=== PATIENT | female | born 1985 | race Hispanic/Latino ===

== ENCOUNTER 2022-05-29 06:15 | Inpatient (IN) | payer MEDICAID, SELFPAY ==
[2022-05-29] VITALS (7 sets, daily range): BP systolic 127–158; BP diastolic 81–101; PULSE 77–100; RESP 14–20; TEMP 36.4–37; O2SAT 97–100; BMI 29.6
--- NOTE | ~2022-05-29 | MR_ITS ---
EXAMINATION: MR MRCP wo/w con/w 3D wo ind DATE: 05/29/2022 15:20 INDICATION: Pancreatitis. TECHNIQUE: Magnetic resonance imaging (MRI) of the abdomen was performed without and with 12 mL Multi Balwinder intravenous contrast. Sequences included coronal T2-weighted FS FSE, coronal T2-weighted FSE, a xial T1-weighted LAVA, coronal FS FIESTA, axial dual-echo T1-weighted SPGR, coronal lava-FLEX, sagitt al T2-weighted FSE, axial T2-weighted FSE, and axial DWI. Thick-slab T2-weighted FSE images were obta ined for magnetic resonance cholangiopancreatography (MRCP). Maximum intensity projection 3-D reconst ructions of the volumetric data were created by the technologist. Postcontrast sequences included cor onal LAVA-flex and time course of axial T1-weighted LAVA. COMPARISON: CT abdomen and pelvis 05/29/22 FINDINGS: ABDOMEN MRI: There is diffuse hepatic steatosis. There are gallstones in the gallbladder, which is no rmal in size. The spleen is normal. There is fluid and fat stranding adjacent to the tail of the panc reas, consistent with acute interstitial pancreatitis. The adrenal glands and kidneys are normal. The re are no dilated loops of bowel. Breast implants are noted. There is fat stranding in the body wall, likely changes of abdominoplasty. ABDOMEN MRCP: The common duct is normal and measures 4 mm. No choledocholithiasis. IMPRESSION: 1. No choledocholithiasis. 2. Acute interstitial pancreatitis. 3. Cholelithiasis. 4. Diffuse hepatic steatosis. Reviewed, dictated and finalized at location A.
--- NOTE | ~2022-05-29 | US_ITS ---
EXAMINATION: US abdomen limited DATE: 05/29/2022 09:46 INDICATION: Pancreatitis. TECHNIQUE: Multiple grayscale and Doppler ultrasound images of the abdomen were obtained. COMPARISON: CT abdomen and pelvis 05/29/22 FINDINGS: The pancreas is obscured by bowel gas. There is diffuse hepatic steatosis. There is normal flow in main portal vein. The gallbladder is contracted. No visible gallstones. No gallbladder wall t hickening. There is no sonographic Godoy sign. The common duct is normal and measures 4 mm. IMPRESSION: 1. Diffuse hepatic steatosis. Reviewed, dictated and finalized at location A.
--- NOTE | ~2022-05-29 | CT_ITS ---
EXAMINATION: CT abdomen pelvis w con DATE: 05/29/2022 08:24 INDICATION: Abdominal pain. TECHNIQUE: Computed tomography (CT) of the abdomen and pelvis was performed with 100 mL Omnipaque 350 intravenous contrast. Automated exposure control and iterative reconstruction technique were employe d. The dose-length product was 861.04 mGy-cm. COMPARISON: None. FINDINGS: The visualized portions of the lung bases demonstrates mild atelectasis. No pleural effusio n. The heart size is normal. No pericardial effusion. Breast implants are noted. The liver and spleen are normal. The gallbladder is contracted. There are wall calcifications of the gallbladder. The cho creas enhances throughout. There is fluid and fat stranding adjacent to the tail of the pancreas, con sistent with acute interstitial pancreatitis. The adrenal glands and kidneys are normal. There are no dilated loops of bowel. There are changes of appendectomy. There are no pathologically enlarged lymp h nodes. There is stranding of the subcutaneous fat in the body wall, likely changes of abdominoplast y. There is mild thoracolumbar spondylosis. There is mild chronic anterior wedging of T11-L1 vertebra l bodies. IMPRESSION: 1. Acute interstitial pancreatitis. Reviewed, dictated and finalized at location A.
[2022-05-29 06:49] LABS: Appearance Urine Clear (Clear); Bilirubin Urine 3+ (Negative); Blood Urine Trace-intact (Negative); Color Urine Dark Yellow (Yellow); Glucose Urine UA Negative (Negative); Ketones Urine Negative (Negative); Leukocyte Esterase Ur Negative LEU/UL (Negative); Nitrate Urine Negative (Negative); Protein Urine Negative (Negative); Urobilinogen Urine 0.2 mg/dL (<2.0); pH Urine 5.5 (5.0-9.0)
[2022-05-29 06:59] LABS: Basophils Percent Auto 0.4 % (0.2-1.2); Eosinophils Absolute Auto 0.1 K/mm3 (0-0.3); Eosinophils Percent Auto 1.5 % (0-4.4); Hematocrit 41.2 % (37.0-47.0); Hemoglobin 13.4 g/dL (12.0-15.0); Immature Granulocyte Absolute 0.03 K/mm3 (0.00-0.031); Immature Granulocyte Percent A 0.3 % (0-0.5); Lymphocytes Absolute Auto 1.31 K/mm3 (0.9-3.2); Lymphocytes Percent Auto 13.8 % (18.3-44.2); Mean Corpuscular HGB Conc 32.5 g/dl (32-36); Mean Corpuscular Hemoglobin 30.3 pg (26-34); Mean Corpuscular Volume 93.2 fl (80-100); Mean Platelet Volume 9.1 fl (7.4-10.4); Monocytes Absolute Auto 0.3 K/mm3 (0.1-0.6); Monocytes Percent Auto 3.6 % (2.6-8.5); Neutrophils Absolute Auto 7.7 K/mm3 (1.3-6.7); Neutrophils Percent Auto 80.4 % (45.5-73.1); Platelet Count Result 344 k/mm3 (150-375); Red Blood Count 4.42 M/mm3 (4.2-5.4); Red Cell Distribution Width 12.3 % (11.5-14.5); White Blood Count 9.5 K/mm3 (4.5-10.0)
[2022-05-29 07:18] LABS: Lactic Acid Reflex 0.8 mmol/L (0.7-2.0)
[2022-05-29 07:24] LABS: Add Urine Microscopic? YES; Bacteria Urine Trace /hpf; Mucus Urine Rare /lpf; RBC Urine 0-2 /hpf (0-2); Squamous Epithelial Cell Urine Many /hpf (Few); WBC Urine 0-3 /hpf
[2022-05-29 07:29] LABS: Albumin Level 4.6 g/dL (3.5-5.1); Alkaline Phosphatase 148 U/L (38-126); Anion Gap 11 mmol/L (8-16); Bilirubin,Total 4.3 mg/dL (0.2-1.3); Blood Urea Nitrogen 6 mg/dL (7-17); Calcium 8.4 mg/dL (8.4-10.2); Carbon Dioxide 27 mmol/L (22-30); Chloride 104 mmol/L (98-107); Estimated Glomerular Filt Rate > 60; Glucose 113 mg/dL (65-110); Potassium 3.6 mmol/L (3.4-5.0); Sodium 142 mmol/L (137-145)
[2022-05-29 07:31] LABS: Alanine Aminotransferase 1039 U/L (6-35); Aspartate Amino Transferase 752 U/L (14-36)
--- NOTE | 2022-05-29 08:14 | ED.GENADULT ---
HPI - General Adult General Chief complaint: Abdominal Pain Stated complaint: abd pain Time Seen by Provider: 05/29/22 07:02 History of Present Illness HPI narrative: This is a 37-year-old female presenting to ED with abdominal pain. Patient states pain started 2 days ago after she ate some work. His regional in the middle of her stomach but is now diffuse throughout her abdomen. She describes it as a soreness/ cramping pain that is nonradiating, 6/10 intensity and comes and goes. She has never experienced pain like this before. She has taken Tylenol with some pain relief. No exacerbating factors. She did have 1 episode of vomiting and some chills. last bowel movement was 2 days ago.She denies diarrhea, urinary symptoms, chest pain, difficulty breathing. Patient has had her appendix out. Related Data Allergies Allergy/AdvReac Type Severity Reaction Status Date / Time No Known Allergies Allergy Verified 05/29/22 08:28 Review of Systems Review of Systems: CONSTITUTIONAL: Denies night sweats. EYES: No eye pain ENT: Denies rhinorrhea CARDIOVASCULAR: Denies palpitations RESPIRATORY: Denies hemoptysis GASTROINTESTINAL: Denies hematemesis GENITOURINARY: Denies hematuria. SKIN: Denies rash MUSCULOSKELETAL: Denies myalgia. NEUROLOGIC: Denies weakness. PSYCHIATRIC: Denies delusions Exam Narrative: APPEARANCE: No apparent distress. patient appears uncomfortable Head atraumatic. EYES: PERRLA/EOMI, NOSE: Normal no drainage NECK: Supple, Trachea midline RESPIRATORY: CTAB, No increased work of breathing. CARDIOVASCULAR: S1S2 appreciated ABDOMINAL: abdomen is soft, nondistended with some voluntary guarding. No rebound tenderness. No CVA tenderness. MUSCULOSKELETAl: No obvious deformities NEURO: Alert. Moving 4/4 extremities SKIN:: Warm, dry. Normal color PSYCHIATRIC: Normal affect Course Vital Signs Vital signs: Vital Signs Temperature 98.6 F 05/29/22 06:26 Pulse Rate 100 05/29/22 06:26 Respiratory Rate 20 05/29/22 06:26 Blood Pressure 154/101 H 05/29/22 06:26 Pulse Oximetry 97 05/29/22 06:26 Oxygen Delivery Room Air 05/29/22 06:26 Temperature 98.6 F 05/29/22 06:26 Pulse Rate 77 05/29/22 08:55 Respiratory Rate 16 05/29/22 08:55 Blood Pressure 135/81 11/04/22 08:55 Pulse Oximetry 100 05/29/22 08:55 Oxygen Delivery Room Air 05/29/22 06:26 Medical Decision Making MDM Narrative Medical decision making narrative: This a 37-year-old female presenting ED with abdominal pain. Differential includes gastritis, pancreatitis, gallbladder disease, constipation among others. Abdominal labs been ordered. CT of pelvis has been ordered. Patient's lab work was seen for an elevated lipase at over 12,000. additionally AST and ALT and bilirubin are elevated as well. CT showed interstitial pancreatitis. Right upper quadrant ultrasound has been ordered to evaluate for gallstones. RUQ quadrant ultrasound revealed a contracted blood all gallbladder with no evidence of cholecystitis. There is diffuse hepatic steatosis. Common bile duct was not dilated. I spoke with Dr. Godoy the GI physician on-call who recommended admission. she will be admitted hospital for further evaluation. Vital Signs Vital Signs: Vital Signs Temperature 98.6 F 05/29/22 06:26 Pulse Rate 100 05/29/22 06:26 Respiratory Rate 20 05/29/22 06:26 Blood Pressure 154/101 H 05/29/22 06:26 Pulse Oximetry 97 05/29/22 06:26 Oxygen Delivery Room Air 05/29/22 06:26 Temperature 98.6 F 05/29/22 06:26 Pulse Rate 77 05/29/22 08:55 Respiratory Rate 16 05/29/22 08:55 Blood Pressure 135/81 05/29/22 08:55 Pulse Oximetry 100 05/29/22 08:55 Oxygen Delivery Room Air 05/29/22 06:26 Lab Data Result diagrams: 05/29/22 06:45 05/29/22 06:45 Labs: Lab Results 05/29/22 05/29/22 05/29/22 Range/Units 06:38 06:45 06:45 WBC 9.5 (4
[2022-05-29 08:24] LABS: Lipase 12645 U/L (23-300)
[2022-05-29] MEDS: HYDROcodone/acetaminophen (*CRX) 5-325 MG TABLET 2 TAB PO (08:30)
--- NOTE | 2022-05-29 12:01 | WPDGICN ---
Assessment and Plan Assessment and plan (1) Acute pancreatitis: Code(s): K85.90 - Acute pancreatitis without necrosis or infection, unspecified Status: Acute Assessment and Plan: she has never had pancreatitis in the past. Her lipase now is greater than 12,000. given the fact that this episode began with acute pain, and she had a similar briefer episode 2 weeks ago, I still suspect biliary tract disease despite the normal ultrasound and CT scan. MRCP has been ordered the plan is to begin IV fluids, rest her gut, do the MRCP and relieve her pain. (2) Abnormal transaminases: Code(s): R74.8 - Abnormal levels of other serum enzymes Status: Acute Assessment and Plan: AST is 752, ALT greater than 1000 a bilirubin 4.3. If not due to biliary tract disease, then this is some sort of hepatic dysfunction, but would be strange did have both pancreatitis and hepatitis at the same time. (3) Fatty liver: Code(s): K76.0 - Fatty (change of) liver, not elsewhere classified Status: Acute Assessment and Plan: This noted on imaging, though would not explain the marked degree of enzyme elevation GI Consult Note Consult date/time: 05/29/22 12:01 HPI: Pat Andres is a 37 year old female who has been in good health and on no medications. She became ill on Wednesday. During the day she has only developed upper abdominal pain a cramping pain. It lasted a good part of the day and slowly subsided. When she got up there is that she felt better with just a bit of a dull discomfort. She was able to eat. She had dinner around 7:00 p.m. on and by midnight she was having severe pain. She did vomit once at home. She then came to the emergency room this morning with the above symptoms. She has been found to have marked elevation of lipase and also elevated LFTs. CT scan of the abdomen did did show pancreatitis but did not show any abnormalities of the biliary tract. She denies drinking alcohol. She has not recently started any new medications. She is not aware of any family history of liver biliary tract or pancreatic disease. Her weight has been stable. She recalls that about 2 weeks ago she had a brief episode similar to this that lasted only an hour or 2. 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 Smoking status: Never smoker Alcohol intake: never Substance use: never Has the Lack of Transportation Kept You From Medical Appointments or From Getting Medications?: No Within the Past 12 Months, Were You Worried Whether Your Food Would Run Out Before You Got Money to Buy More?: Never True What is Your Housing Situation Today?: I Have Housing Are You Worried That in the Next 2 Months, You May Not Have Your Own Housing to Live In?: No Do You Have Trouble Paying Your Heating Or Electricity Bill?: No Do You Have Trouble Paying For Medicines?: No Are You Currently Unemployed and Looking for Work?: No Highest Level of Education Completed: High School Diploma/GED Do You Have Trouble With Childcare or the Care of a Family Member?: No Spiritual care concerns: No Meds Home Medications and Allergies Home Medications Medication Instructions Recorded Confirmed Type acetaminophen 325 mg tablet 325 mg PO QID PRN Pain 05/29/22 05/29/22 History Allergies Allergy/AdvReac Type Severity Reaction Status Date / Time No Known Allergies Allergy Verified 05/29/22 08:28 Vital Signs Vital Signs - 24 hr 05/29
[2022-05-29 12:20] LABS: SARS-CoV-2 RNA PCR Negative
--- NOTE | 2022-05-29 13:03 | PM.IMHP ---
H&P: HPI History of Present Illness Date/Time: 05/29/22 13:03 Chief Complaint: Abdominal pain Narrative: This is a 37-year-old female patient who has no past medical history. The patient presented to the emergency room with abdominal pain. The patient stated that her pain started 2 days ago when she is upset at work. The patient is complaining of mid abdominal pain that has diffusely spread. She stated that it was a soreness or cramping pain. Her pain was 6/10. Na comes and goes. She has never experienced anything like this before. She takes Tylenol but did not relieve all the pain it only relieves some of it. No exacerbating factors. The patient did have an episode of vomiting and some chills. Her last bowel movement was 2 days ago. No fever chills. She is a nondrinker. Her lipase is 12,645. Urine has 3+ urine bilirubin. Patient was negative for COVID. Total bilirubin 4.3, AST 752, ALT 1039, and alkaline phosphatase 148. The patient's abdominal ultrasound was read as diffuse hepatic steatosis. Abdominal pelvis CT was read as acute interstitial pancreatitis. Abdominal MRI with MRCP shows no choledochochilithiasis. Acute interstitial pancreatitis. Cholelithiasis. Diffuse hepatic steatosis. GI has been consulted. The patient was given IV fluids and Townsend tablet. The patient is being admitted to inpatient status on the date of service of 05/29/2022. Review of Systems Review of Systems: See HPI All systems reviewed & are unremarkable except as noted in HPI and below Constitutional: Constitutional: Reports as per HPI and Reports no additional constitutional complaints Eyes: Eyes: Reports as per HPI and Reports no additional eye complaints ENT: Reports system reviewed and no additional complaints, except as documented and Reports Normal hearing present Cardiovascular: Cardiovascular: Reports no additional cardiovascular complaints Respiratory: Respiratory: Reports no additional respiratory complaints and Reports no additional respiratory complaints Gastrointestinal: Gastrointestinal: Reports as per HPI and Reports no additional gastrointestinal complaints Musculoskeletal: Musculoskeletal: Reports no additional musculoskeletal complaints Integumentary/Breasts: Skin/Breast: Reports system reviewed and no additional complaints, except as docu and Reports as per HPI Neurologic: Reports system reviewed and no additional complaints, except as documented, Reports as per HPI and Reports Normal hearing present Psychiatric: Psychiatric: Reports no additional psychiatric complaints and Reports as per HPI Endocrine: Endocrine: Reports no additional endocrine complaints Hematologic/Lymphatic: Hematologic/Lymphatic: Reports no additional hematologic/lymphatic complaints Allergic/Immunologic: Allergic/Immunologic: Reports no additional allergic/immunologic complaints [facility] Surgical History Surgical History (Updated 05/29/22 @ 17:38 by Myesha Garcia NP) H/O abdominoplasty H/O breast augmentation History of appendectomy Family History Family History Father Diabetes mellitus Social History Social History (Updated 05/29/22 @ 17:39 by Myesha Garcia NP) Social History: 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 She has 3 children and is . She now has a fiancee. She is a lifelong nonsmoker. She denies any alcohol marijuana or illicit drugs. She does not have a durable power real estate associate attorney for healthcare. The patient stated that she is from [place]. Code status full code. Smoking status: Never smoker Alcohol intake: never Substance use: never Has the Lack of Transportation Kept You From Medical Appointments or From Getting Medications?: No Within the Past 12 Months, Were You Worried Whether Your Food Would Run Out Before You Got Money to Buy More?: Never True What is Your Housing Situation Today?: I Have Housing Ar
[2022-05-29] MEDS: SODIUM CHLORIDE 0.9% IV 1,000 ML 150 ML IV CONT (13:05)
--- NOTE | 2022-05-29 13:59 | ADMGEN ---
This patient, aPt Andres, was admitted to [facility] Surg Room 304-02 at 1340. Patient/family oriented to hospital policies and general routines including ID bracelet, bed and alarms, visiting hours, pain management, procedures, bathroom and other care routines, personal items, smoking policy, room service/diet, and visiting hours. Information on how to activate the Rapid Response Team has been discussed. Patient/Family are encouraged to report perceived risks to care and to ask questions if they do not understand what they are told or what they should do.
[2022-05-30] MEDS: KETOROLAC 15 MG/ML VIAL (*BKC) IV PUSH (05:38)
[2022-05-30 05:55] LABS: Basophils Percent Auto 0.4 % (0.2-1.2); Eosinophils Absolute Auto 0.2 K/mm3 (0-0.3); Eosinophils Percent Auto 2.5 % (0-4.4); Hematocrit 37.1 % (37.0-47.0); Hemoglobin 12.2 g/dL (12.0-15.0); Immature Granulocyte Absolute 0.02 K/mm3 (0.00-0.031); Immature Granulocyte Percent A 0.3 % (0-0.5); Lymphocytes Absolute Auto 1.76 K/mm3 (0.9-3.2); Lymphocytes Percent Auto 22.8 % (18.3-44.2); Mean Corpuscular HGB Conc 32.9 g/dl (32-36); Mean Corpuscular Hemoglobin 29.8 pg (26-34); Mean Corpuscular Volume 90.7 fl (80-100); Monocytes Absolute Auto 0.4 K/mm3 (0.1-0.6); Monocytes Percent Auto 4.8 % (2.6-8.5); Neutrophils Absolute Auto 5.4 K/mm3 (1.3-6.7); Neutrophils Percent Auto 69.2 % (45.5-73.1); Platelet Count Result 312 k/mm3 (150-375); Red Blood Count 4.09 M/mm3 (4.2-5.4); Red Cell Distribution Width 12.2 % (11.5-14.5); White Blood Count 7.7 K/mm3 (4.5-10.0)
[2022-05-30 06:00] VITALS: BP 144/85; PULSE 83; RESP 16; TEMP 36.5; O2SAT 97
[2022-05-30 06:03] LABS: Lactic Acid Reflex 0.8 mmol/L (0.7-2.0)
[2022-05-30 06:05] LABS: Albumin Level 4.3 g/dL (3.5-5.1); Alkaline Phosphatase 151 U/L (38-126); Anion Gap 11 mmol/L (8-16); Aspartate Amino Transferase 301 U/L (14-36); Bilirubin,Total 2.4 mg/dL (0.2-1.3); Blood Urea Nitrogen 9 mg/dL (7-17); Calcium 8.4 mg/dL (8.4-10.2); Carbon Dioxide 23 mmol/L (22-30); Chloride 104 mmol/L (98-107); Cholesterol 167 mg/dL (0-200); Estimated CRCL calculation 150 ml/min; Estimated Glomerular Filt Rate > 60; Glucose 90 mg/dL (65-110); HDL Direct 61 mg/dL; Lipase 850 U/L (23-300); Potassium 3.5 mmol/L (3.4-5.0); Sodium 138 mmol/L (137-145); Triglycerides 126 mg/dL (<150)
[2022-05-30 06:14] LABS: LDL Cholesterol Direct 64 mg/dL
--- NOTE | 2022-05-30 08:46 | PM.IMPN ---
Progress Note: A&P Assessment and Plan (1) Acute pancreatitis: Qualifiers: Pancreatitis type: unspecified pancreatitis type Acute pancreatitis complication: no infection or necrosis Qualified Code(s): K85.90 - Acute pancreatitis without necrosis or infection, unspecified Code(s): K85.90 - Acute pancreatitis without necrosis or infection, unspecified Status: Acute Assessment and Plan: Patient presented to the ED with c/o abdominal pain x 2 days. No alcohol use. Presumed CT scan consistent with interstitial pancreatitis. Lipase 12,645 on admission. Triglycerides 126. TSH 1.87. LFTs elevated - Tbili 4.3, ALT 1039, AST 752, Alk phos 148 on admission. Patient made NPO on admission. Advance diet per GI. Continue aggressive IV fluid hydration. Pain control with IV dilaudid and toradol. GI consulted and appreciate recommendations. Further recommendation per GI. Abd US - showed contracted gallbladder, no visible gallstones or wall thickening. Normal common bile duct. Diffuse hepatic steatosis. MRCP - No choledocholithiasis. Acute interstitial pancreatitis. Cholelithiasis. and Diffuse hepatic steatosis. Trend lipase. (2) Abnormal transaminases: Code(s): R74.8 - Abnormal levels of other serum enzymes Status: Acute Assessment and Plan: LFTs elevated on admission- Tbili 4.3, ALT 1039, AST 752, Alk phos 148 Imaging consistent with cholelithiasis, but no choledocholithiasis. Trend LFTs GI consulted and following. (3) Fatty liver: Code(s): K76.0 - Fatty (change of) liver, not elsewhere classified Status: Chronic Assessment and Plan: Patient does not drink alcohol. Likely non-alcoholic fatty liver disease. Imaging shows diffuse hepatic steatosis. BMI 29.5 kg/m2. Recommend weight loss with lifestyle modifications. Low fat diet. (4) Cholelithiases: Qualifiers: Cholelithiasis location: gallbladder Cholecystitis presence: without cholecystitis Biliary obstruction: without biliary obstruction Qualified Code(s): K80.20 - Calculus of gallbladder without cholecystitis without obstruction Code(s): K80.20 - Calculus of gallbladder without cholecystitis without obstruction Status: Acute Assessment and Plan: MRCP with cholelithiasis without choledocholithiasis or acute cholecystitis. LFTs elevated as above. General surgery consulted. (5) Elevated heart rate with elevated blood pressure without diagnosis of hypertension: Code(s): R00.9 - Unspecified abnormalities of heart beat; R03.0 - Elevated blood-pressure reading, without diagnosis of hypertension Status: Acute Assessment and Plan: BP 153/94 to 143/77, HR 86. No prior history of hypertension or home antihypertensive use. Likely pain related. Monitor vitals closely and add antihypertensives as needed. Plan CODE STATUS: FULL CODE Disposition: home when cleared by surgery and GI. Time Spent With Patient Time with patient: 15 - 25 minutes Subjective Date/time seen: 05/30/22 08:46 She reports her pain is improved. She just started a clear liquid diet for lunch. No nausea or vomiting. She denies chest pain or dyspnea. No stool at this time. Review of Systems Review of Systems: All systems reviewed & are unremarkable except as noted in HPI and below Exam Narrative: General: No acute distress.? Well-developed and well-groomed?adult female. Sitting up in bed talking on the phone. Mental Status/Psych: Awake, alert and oriented to person and place with clear speech. Neutral mood and affect. Pleasant and cooperative. Skin: Skin fair, warm, dry and intact without rashes or lesions. No open wounds. Good turgor.? HEENT: Normocephalic. Conjunctivae are clear. Sclera is non-icteric. EOM intact. PERRL. Grossly normal hearing. Oral mucosa pink and moist. Tongue midline. Oropharynx within normal limits. Neck: Supple. Trachea midline. No JVD. Heart: S1 and S2 re
[2022-05-30] MEDS: SODIUM CHLORIDE 0.9% IV 1,000 ML 150 ML IV CONT ×3 (09:09→22:05)
[2022-05-30 09:29] LABS: Alanine Aminotransferase 786 U/L (6-35)
--- NOTE | 2022-05-30 10:08 | WPDGIPROGNO ---
Progress Note: A&P Assessment and Plan (1) Cholelithiases: Code(s): K80.20 - Calculus of gallbladder without cholecystitis without obstruction Status: Acute Assessment and Plan: Patient is found to have cholelithiasis. MRCP reveals no evidence of choledocholithiasis at this time. I suspect she has gallstone pancreatitis. Likely gallstone passed to the biliary tree causing pancreatitis. No evidence of residual common duct stones. Recommend surgery consultation for a ventral cholecystectomy. (2) Acute pancreatitis: Code(s): K85.90 - Acute pancreatitis without necrosis or infection, unspecified Status: Acute Assessment and Plan: Patient admitted with gallstone pancreatitis. Lipase has decreased to 850 today. LFTs are declining as well. Will fractionate her bilirubin. Start liquid diet surgery consult for eventual cholecystectomy. Continue supportive care per (3) Abnormal transaminases: Code(s): R74.8 - Abnormal levels of other serum enzymes Status: Acute Assessment and Plan: LFTs improving consistent with passage of a common bile duct gallstones. Plan for surgery consult this date. Continue supportive care monitor LFTs. Subjective Date/time seen: 05/30/22 10:08 Patient admitted with pancreatitis. She states abdominal pain has begun to improve. Less intense today. She is becoming hungry. Review of Systems Review of Systems: Review of systems noncontributory. Exam Narrative: Physical exam reveals patient be alert. She is afebrile. Vital signs stable. HEENT exam reveals no icterus. Lungs are clear. Heart without murmur. Abdomen bowel sounds present soft minimal upper abdominal tenderness. Organomegaly evident. Objective Data Vital Signs Vital Signs: Vital Signs - 24 hr 05/29/22 13:05 05/29/22 13:50 05/29/22 13:59 Temperature 97.5 F L Pulse Rate 86 83 Respiratory Rate 16 16 Blood Pressure 153/98 H 143/88 H Pulse Oximetry 99 98 Oxygen Delivery Room Air 05/29/22 22:00 05/30/22 06:00 Temperature 98.2 F 97.7 F Pulse Rate 93 83 Respiratory Rate 14 16 Blood Pressure 158/94 H 144/85 H Pulse Oximetry 97 97 Oxygen Delivery Intake/Output Intake/Output: Intake & Output 05/27/22 05/28/22 05/29/22 05/30/22 23:59 23:59 23:59 23:59 Intake Total 1120 Output Total 1400 Balance 1120 -1400 Meds/Results Medications: Active Medications Generic Name Dose Route Start Last Admin Trade Name Freq PRN Reason Stop Dose Admin Hydromorphone HCl 0.5 mg 05/29/22 17:52 Hydromorphone Hcl Inj (*Crx) 1 Mg/Ml Syr IV PUSH Q3H PRN Pain Rated 7-10 Sodium Chloride 1,000 mls @ 150 mls/hr 05/30/22 08:55 05/30/22 09:09 Normal Saline Iv IV CONT 150 mls/hr .[id number] GEORGE Administration Ketorolac Tromethamine 15 mg 05/29/22 17:52 05/30/22 05:38 Ketorolac 15 Mg/Ml Vial (*Bkc) IV PUSH 15 mg Q6H PRN Administration Pain Rated 4-6 Radiology Results: ITS Impressions Abdomen/Pelvis CT 05/29/22 08:27 IMPRESSION: 1. Acute interstitial pancreatitis. Abdomen Ultrasound 05/29/22 09:57 IMPRESSION: 1. Diffuse hepatic steatosis. MRCP 05/29/22 15:23 IMPRESSION: 1. No choledocholithiasis. 2. Acute interstitial pancreatitis. 3. Cholelithiasis. 4. Diffuse hepatic steatosis. Labs Labs: Laboratory Results - last 24 hr 05/29/22 05/30/22 05/30/22 11:39 05:41 05:41 WBC 7.7 RBC 4.09 L Hgb 12.2 Hct 37.1 MCV 90.7 MCH 29.8 MCHC 32.9 RDW 12.2 Plt Count 312 MPV 9.0 Immature Gran % (Auto) 0.3 Neut % (Auto) 69.2 Lymph % (Auto) 22.8 [place] % (Auto) 4.8 Eos % (Auto) 2.5 Baso % (Auto) 0.4 Lymph # (Auto) 1.76 [place] # (Auto) 0.4 Eos # (Auto) 0.2 Baso # (Auto) 0.0 Abs Immat Gran (auto) 0.02 Absolute Neuts (auto) 5.4 Absolute Nucleated RBC 0.0 Nucleated RBC % 0.0 Sodium 138 Potassium 3.5 Chl
[2022-05-30 10:42] LABS: Bilirubin Indirect 1.1 mg/dL (0-1.1)
[2022-05-30 14:00] VITALS: BP 143/77; PULSE 86; RESP 14; TEMP 36.5; O2SAT 96
[2022-05-30] MEDS: HYDROmorphone HCL INJ (*CRX) 1 MG/ML SYR 0.5 MG IV PUSH (15:52)
[2022-05-30 16:55] VITALS: O2SAT 95
[2022-05-30] MEDS: ACETAMINOPHEN 325 MG TABLET 650 MG PO (18:58)
[2022-05-30 19:05] LABS: Appearance Urine Clear (Clear); Bilirubin Urine 1+ (Negative); Blood Urine Negative (Negative); Color Urine Yellow (Yellow); Glucose Urine UA Negative (Negative); Ketones Urine 3+ mg/dL (Negative); Leukocyte Esterase Ur Negative LEU/UL (Negative); Nitrate Urine Negative (Negative); Protein Urine Negative (Negative); Urobilinogen Urine >=8.0 mg/dL (<2.0); pH Urine 6.5 (5.0-9.0)
--- NOTE | 2022-05-30 19:15 | PM.CNGS ---
Assessment and Plan Assessment and plan (1) Biliary acute pancreatitis without necrosis or infection: Code(s): K85.10 - Biliary acute pancreatitis without necrosis or infection Status: Acute Assessment and Plan: Patient probably did pass a common bile duct stone and pancreatitis as well as abnormal liver function tests are getting better. I have recommended laparoscopic cholecystectomy to avoid further episodes of this or possibly cholecystitis. I described the surgery and the recovery time with the patient in detail. All questions were answered. If possible, the patient would prefer to be discharged and come back as an outpatient to have the surgery done. As long as she is tolerating oral intake I think this is certainly reasonable. Thank you for asking me to see this patient in consultation. I will follow up again tomorrow and if doing well, she can be discharged from my standpoint and outpatient laparoscopic cholecystectomy can be scheduled in the near future. History of Present Illness Consult details Consult date: 05/30/22 Reason for consult: abdominal pain Requesting physician: Chaparro Desouza MD Narrative: Patient is a 37-year-old woman who came to the emergency room yesterday morning with severe abdominal pain. Her symptoms started 3 days ago but then got much worse 2 days ago. She came to the emergency room and was seen early yesterday morning. She was found to be diffusely tender with some guarding. She had a markedly elevated serum lipase and elevated liver function tests. CT scan of the abdomen and pelvis showed acute pancreatitis. No gallstones were noted. She had an ultrasound of the gallbladder which was also negative. Due to concerns for common bile duct stones, an MRCP was performed yesterday afternoon. This did show gallstones in the gallbladder but no common bile duct stones and also showed acute pancreatitis. Patient has never been told before she had gallstones and has never experience pancreatitis in the past. She is seen today in consultation. Her abdominal pain is essentially gone. She has been on clear liquids and tolerating them well. Review of Systems Review of Systems: All systems reviewed & are unremarkable except as noted in HPI and below (HPI and those items noted below) Constitutional: Constitutional: Denies chills and Denies fever(s) Cardiovascular: Cardiovascular: Denies chest pain, Denies diaphoresis, Denies dyspnea and Denies paroxysmal nocturnal dyspnea Respiratory: Respiratory: Denies chest congestion, Denies cough and Denies dyspnea Gastrointestinal: Gastrointestinal: Reports as per HPI, Reports abdominal pain and Reports vomiting Integumentary/Breasts: Skin/Breast: Denies lesions and Denies rash PMFSH Surgical History Surgical History (Updated 05/30/22 @ 16:56 by Renetta Nichols APRN) H/O abdominoplasty H/O breast augmentation History of appendectomy Family History Family History Father Diabetes mellitus Social History Social History (Updated 05/29/22 @ 17:39 by Myesha Garcia NP) Social History: 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 She has 3 children and is . She now has a fiancee. She is a lifelong nonsmoker. She denies any alcohol marijuana or illicit drugs. She does not have a durable power claims attorney for healthcare. The patient stated that she is from [place]. Code status full code. Smoking status: Never smoker Alcohol intake: never Substance use: never Has the Lack of Transportation Kept You From Medical Appointments or From Getting Medications?: No Within the Past 12 Months, Were You Worried Whether Your Food Would Run Out Before You Got Money to Buy More?: Never True What is Your Housing Situation Today?: I Have Housing Are You Worried That in the Next 2 Months, You May Not Have Your Own Housing to Live In?: No Do You Have Trouble P
[2022-05-30 19:22] LABS: Mucus Urine Rare /lpf; Squamous Epithelial Cell Urine Few /hpf (Few); WBC Urine 0-3 /hpf
[2022-05-30 19:27] LABS: Add Urine Microscopic? YES
[2022-05-30 22:00] VITALS: BP 147/79; PULSE 73; RESP 14; TEMP 36.3; O2SAT 97
--- NOTE | 2022-05-31 01:13 | PC.NURSE ---
Daylight Savings Time For Daylight Savings Time Ending in the Fall - Clocks are moved back. For Daylight Savings Time Beginning in the Spring - Clocks are moved ahead. For [facility], the time of change occurs at 0200 hrs. Time is taken from the human resources office assistant. This entry on the patient's chart recognizes the change in time reflected during documentation. Example: 2 entries for vital signs may be charted for 0200 hrs.
[2022-05-31] MEDS: SODIUM CHLORIDE 0.9% IV 1,000 ML 150 ML IV CONT ×2 (03:49→10:31)
[2022-05-31 06:00] VITALS: BP 142/85; PULSE 75; RESP 12; TEMP 36.7; O2SAT 99
[2022-05-31 07:46] LABS: Hemoglobin 11.7 g/dL (12.0-15.0); Mean Corpuscular HGB Conc 32.5 g/dl (32-36); Mean Corpuscular Hemoglobin 30.4 pg (26-34); Mean Corpuscular Volume 93.5 fl (80-100); Mean Platelet Volume 9.2 fl (7.4-10.4); Platelet Count Result 283 k/mm3 (150-375); Red Blood Count 3.85 M/mm3 (4.2-5.4); Red Cell Distribution Width 12.2 % (11.5-14.5); White Blood Count 8.1 K/mm3 (4.5-10.0)
[2022-05-31 08:08] LABS: Alanine Aminotransferase 514 U/L (6-35); Albumin Level 3.9 g/dL (3.5-5.1); Alkaline Phosphatase 139 U/L (38-126); Anion Gap 9 mmol/L (8-16); Aspartate Amino Transferase 161 U/L (14-36); Bilirubin,Total 1.3 mg/dL (0.2-1.3); Blood Urea Nitrogen 3 mg/dL (7-17); Calcium 8.1 mg/dL (8.4-10.2); Carbon Dioxide 23 mmol/L (22-30); Chloride 106 mmol/L (98-107); Estimated CRCL calculation 182 ml/min; Estimated Glomerular Filt Rate > 60; Glucose 92 mg/dL (65-110); Potassium 3.5 mmol/L (3.4-5.0); Sodium 138 mmol/L (137-145)
--- NOTE | 2022-05-31 08:13 | WPDGIPROGNO ---
Progress Note: A&P Assessment and Plan (1) Acute pancreatitis: Qualifiers: Acute pancreatitis complication: no infection or necrosis Pancreatitis type: unspecified pancreatitis type Qualified Code(s): K85.90 - Acute pancreatitis without necrosis or infection, unspecified Code(s): K85.90 - Acute pancreatitis without necrosis or infection, unspecified Status: Acute Assessment and Plan: Patient with pancreatitis appears be on the basis of gallstones. No residual common duct stones by MRCP. Appreciate surgical consultation. Plan for cholecystectomy . Will advance to low-fat diet today. Disposition per primary care service. Hopefully K patient could be discharged with surgical follow-up. LFTs are resolving as expected after probably passing a common bile duct stone previously. (2) Cholelithiases: Qualifiers: Cholelithiasis location: gallbladder Cholecystitis presence: without cholecystitis Biliary obstruction: without biliary obstruction Qualified Code(s): K80.20 - Calculus of gallbladder without cholecystitis without obstruction Code(s): K80.20 - Calculus of gallbladder without cholecystitis without obstruction Status: Acute Subjective Date/time seen: 05/31/22 08:13 Patient alert comfortable this morning. Denies abdominal pain. No fever. Hungry for more food. Review of Systems Review of Systems: Review of systems noncontributory. Exam Narrative: Physical exam reveals patient to be alert. Vital signs stable. HEENT exam reveals no icterus. Lungs are clear. Heart without murmur. Abdomen bowel sounds present soft nontender with no organomegaly. Objective Data Vital Signs Vital Signs: Vital Signs - 24 hr 05/30/22 14:00 05/30/22 16:55 05/30/22 22:00 Temperature 97.7 F 97.4 F L Pulse Rate 86 73 Respiratory Rate 14 14 Blood Pressure 143/77 H 147/79 H Pulse Oximetry 96 95 97 Oxygen Delivery Room Air 05/31/22 06:00 Temperature 98.1 F Pulse Rate 75 Respiratory Rate 12 Blood Pressure 142/85 H Pulse Oximetry 99 Oxygen Delivery Intake/Output Intake/Output: Intake & Output 05/28/22 05/29/22 05/30/22 05/31/22 23:59 23:59 23:59 22:59 Intake Total 1120 2462 1240 Output Total 1600 1200 Balance 1120 862 40 Meds/Results Medications: Active Medications Generic Name Dose Route Start Last Admin Trade Name Freq PRN Reason Stop Dose Admin Acetaminophen 650 mg 05/30/22 18:51 05/30/22 18:58 Acetaminophen 325 Mg Tablet PO 650 mg Q6H PRN Administration Mild Pain (1-3) or Fever Hydromorphone HCl 0.5 mg 05/29/22 17:52 05/30/22 15:52 Hydromorphone Hcl Inj (*Crx) 1 Mg/Ml Syr IV PUSH 0.5 mg Q3H PRN Administration Pain Rated 7-10 Sodium Chloride 1,000 mls @ 150 mls/hr 05/30/22 08:55 05/31/22 03:49 Normal Saline Iv IV CONT 150 mls/hr .Q6H40M GEORGE Administration Ketorolac Tromethamine 15 mg 05/29/22 17:52 05/30/22 05:38 Ketorolac 15 Mg/Ml Vial (*Bkc) IV PUSH 15 mg Q6H PRN Administration Pain Rated 4-6 Radiology Results: ITS Impressions Abdomen/Pelvis CT 05/29/22 08:27 IMPRESSION: 1. Acute interstitial pancreatitis. Abdomen Ultrasound 05/29/22 09:57 IMPRESSION: 1. Diffuse hepatic steatosis. MRCP 05/29/22 15:23 IMPRESSION: 1. No choledocholithiasis. 2. Acute interstitial pancreatitis. 3. Cholelithiasis. 4. Diffuse hepatic steatosis. Labs Labs: Laboratory Results - last 24 hr 05/30/22 05/30/22 05/30/22 05:37 05:41 18:57 WBC RBC Hgb Hct MCV MCH MCHC RDW Plt Count MPV Sodium Potassium Chloride Carbon Dioxide Anion Gap BUN Creatinine Estim Creat Clear Calc Estimated GFR Glucose Calcium Total Bilirubin Cancelled Direct Bilirubin 0.0 Indirect Bilirubin 1.1 AST ALT 786 H Alkaline Phosphatase Total Protein Albumin Urine Color
--- NOTE | 2022-05-31 10:51 | PM.PNGS ---
Progress Note: A&P Assessment and Plan (1) Biliary acute pancreatitis without necrosis or infection: Code(s): K85.10 - Biliary acute pancreatitis without necrosis or infection Status: Acute Assessment and Plan: liver function tests improved today. Patient no longer having abdominal pain. Agree with low-fat diet. Patient can be discharged today from my perspective. My office will call her tomorrow or Wednesday and arrange outpatient laparoscopic cholecystectomy with intraoperative cholangiogram. I again discussed this procedure with the patient. All questions were answered. Will plan to proceed with this as an outpatient in the near future. Subjective Subjective Date/Time Seen: 05/31/22 10:51 Patient reports: no new complaints, pain is less ( No abdominal pain), tolerating liquids well and afebrile Review of Systems Review of Systems: All systems reviewed & are unremarkable except as noted in HPI and below ( HPI) Exam Const: General: comfortable and no acute distress; No confusion Orientation/consciousness: patient oriented x3 and No confusion GI: Inspection: normal to inspection, non-distended and scar GI Palp: Yes Soft to palpation, No Tenderness to palpation present (GI) and No Guarding due to palpation present (GI) Auscultation: normal bowel sounds Neuro: General: patient oriented x3, no focal motor deficits and No confusion Extrem: General: no calf tenderness and no edema Psych: Affect: normal affect Insight: Good insight present (Psych) Judgement: Good judgement present (Psych) Objective Data Vital Signs Vital Signs: Vital Signs - 24 hr 05/30/22 14:00 05/30/22 16:55 05/30/22 22:00 Temperature 36.5 C 36.3 C L Pulse Rate 86 73 Respiratory Rate 14 14 Blood Pressure 143/77 H 147/79 H Pulse Oximetry 96 95 97 Oxygen Delivery Room Air 05/31/22 06:00 05/31/22 08:30 Temperature 36.7 C Pulse Rate 75 Respiratory Rate 12 Blood Pressure 142/85 H Pulse Oximetry 99 Oxygen Delivery Room Air Intake/Output Intake/Output: Intake & Output 05/28/22 05/29/22 05/30/22 05/31/22 23:59 23:59 23:59 22:59 Intake Total 1120 2462 2330 Output Total 1600 1200 Balance 1412 925 8808 Meds/Results Medications: Active Medications Generic Name Dose Route Start Last Admin Trade Name Freq PRN Reason Stop Dose Admin Acetaminophen 650 mg 05/30/22 18:51 05/30/22 18:58 Acetaminophen 325 Mg Tablet PO 650 mg Q6H PRN Administration Mild Pain (1-3) or Fever Hydromorphone HCl 0.5 mg 05/29/22 17:52 05/30/22 15:52 Hydromorphone Hcl Inj (*Crx) 1 Mg/Ml Syr IV PUSH 0.5 mg Q3H PRN Administration Pain Rated 7-10 Sodium Chloride 1,000 mls @ 150 mls/hr 05/30/22 08:55 05/31/22 10:31 Normal Saline Iv IV CONT 150 mls/hr .Q6H40M GEORGE Administration Ketorolac Tromethamine 15 mg 05/29/22 17:52 05/30/22 05:38 Ketorolac 15 Mg/Ml Vial (*Bkc) IV PUSH 15 mg Q6H PRN Administration Pain Rated 4-6 Radiology Results: ITS Impressions Abdomen/Pelvis CT 05/29/22 08:27 IMPRESSION: 1. Acute interstitial pancreatitis. Abdomen Ultrasound 05/29/22 09:57 IMPRESSION: 1. Diffuse hepatic steatosis. MRCP 05/29/22 15:23 IMPRESSION: 1. No choledocholithiasis. 2. Acute interstitial pancreatitis. 3. Cholelithiasis. 4. Diffuse hepatic steatosis. Labs Labs: Laboratory Results - last 24 hr 05/30/22 05/31/22 05/31/22 18:57 07:15 07:15 WBC 8.1 RBC 3.85 L Hgb 11.7 L Hct 36.0 L MCV 93.5 MCH 30.4 MCHC 32.5 RDW 12.2 Plt Count 283 MPV 9.2 Sodium 138 Potassium 3.5 Chloride 106 Carbon Dioxide 23 Anion Gap 9 BUN 3 L D Creatinine 0.40 L Estim Creat Clear Calc 182 Estimated GFR > 60 Glucose 92 Calcium 8.1 L Total Bilirubin 1.3 AST 161 H ALT 514 H Alkaline Phosphatase 139 H Total Protein 7.0 Albumin 3.9 Urine Color Yellow Urine
--- NOTE | 2022-05-31 13:40 | PM.DS ---
DS: Admitting Diagnosis Discharge Date 05/31/22 1340 Admitting Diagnosis Acute pancreatitis without necrosis or infection, unspecified Transaminitis? DS: Discharge Diagnosis Discharge Diagnosis (1) Acute pancreatitis: Qualifiers: Acute pancreatitis complication: no infection or necrosis Pancreatitis type: unspecified pancreatitis type Qualified Code(s): K85.90 - Acute pancreatitis without necrosis or infection, unspecified Code(s): K85.90 - Acute pancreatitis without necrosis or infection, unspecified Status: Acute (2) Abnormal transaminases: Code(s): R74.8 - Abnormal levels of other serum enzymes Status: Acute (3) Fatty liver: Code(s): K76.0 - Fatty (change of) liver, not elsewhere classified Status: Chronic (4) Cholelithiases: Qualifiers: Biliary obstruction: without biliary obstruction Cholecystitis presence: without cholecystitis Cholelithiasis location: gallbladder Qualified Code(s): K80.20 - Calculus of gallbladder without cholecystitis without obstruction Code(s): K80.20 - Calculus of gallbladder without cholecystitis without obstruction Status: Acute (5) Elevated BP without diagnosis of hypertension: Code(s): R03.0 - Elevated blood-pressure reading, without diagnosis of hypertension Status: Acute (6) GERD (gastroesophageal reflux disease): Qualifiers: Esophagitis presence: without esophagitis Qualified Code(s): K21.9 - Gastro-esophageal reflux disease without esophagitis Code(s): K21.9 - Gastro-esophageal reflux disease without esophagitis Status: Acute DS: Summary Hospital Course Reason for hospitalization: abdominal pain Hospital Course: Pat Andres is a 37-year-old female patient who has no past medical history.?She presented to the emergency room with c/o abdominal pain.? The patient stated that her pain mid-abdomen, diffusely spread, and started 2 days prior to admission when she was upset at work. The pain was soreness or cramping pain, 6/10.? She has nausea that comes and goes.? She has never experienced anything like this before.? She took Tylenol but did not relieve all the pain, only a small amount.? She denied exacerbating factors.? She also reported an episode of vomiting and chills.? Her last bowel movement was 2 days prior to admission.? No fever.? She is a nondrinker.? Her lipase was 12,645 in the ED. Urine has 3+ urine bilirubin.? Patient was negative for COVID.? Total bilirubin 4.3, AST 752, ALT 1039, and alkaline phosphatase 148.? Imaging was consistent with acute interstitial pancreatitis. GI was consulted in the ED and she given IV fluids and [place] tablet.? She was admitted to the medical floor for further management of pancreatitis and GI evaluation. Acute pancreatitis: Patient presented to the ED with c/o abdominal pain x 2 days. No alcohol use. Lipase 12,[address] scan consistent with interstitial pancreatitis. Other lab work showed Triglycerides 126. TSH 1.87. LFTs elevated - Tbili 4.3, ALT 1039, AST 752, Alk phos 148 on admission. Patient made NPO on admission and GI was consulted. She was continued on aggressive IV fluid hydration and pain control with IV dilaudid and toradol. GI was consulted. Abd US showed contracted gallbladder, no visible gallstones or wall thickening; normal common bile duct and diffuse hepatic steatosis. MRCP was negative for choledocholithiasis, but did demonstrate acute interstitial pancreatitis, cholelithiasis, and diffuse hepatic steatosis. Her lipase was trended and decreased to 850. Her abdominal pain resolved and she was advanced to low fat diet with good tolerance. LFTs were monitored and trending down at discharge. Tbili was 1.3. Fatty liver: Diffuse hepatic steatosis noted on CT scan. Patient does not drink alcohol, suggesting non-alcoholic fatty liver disease. BMI 29.5 kg/m2. Recommend weight loss with lifestyle modifications and low fat di
== END 2022-05-31 14:05 | disposition home or self-care (01) | DRG 282 ==
LOC: ANHED 10:36 → ANH3MEDSUR 13:19
PROVIDERS: Emergency Medicine; Internal Medicine Gastroenterology; Nurse Practitioner; Admitting Provider Family Medicine; Emergency Provider Emergency Medicine; Visit Provider Nurse Practitioner Family
DX: K85.80 Other acute pancreatitis without necrosis or infection (principal); R74.8 Abnormal levels of other serum enzymes; R03.0 Elevated blood-pressure reading, without diagnosis of hypertension; Z20.822 Contact with and (suspected) exposure to COVID-19; K76.0 Fatty (change of) liver, not elsewhere classified; K21.9 Gastro-esophageal reflux disease without esophagitis; K80.20 Calculus of gallbladder without cholecystitis without obstruction; R00.9 Unspecified abnormalities of heart beat; Z28.21 Immunization not carried out because of patient refusal
CPT/HCPCS: 36415; 74177; 74183; 76376; 76705; 80053; 80061; 81001; 81025; 82248; 83605; 83690; 83735; 84443; 85025; 85027; 99285; A9270; A9577; J1170; J1885; J7030; Q9967; U0003; U0005

== ENCOUNTER 2022-06-08 14:18 | Outpatient (CLI) | payer MEDICAID, SELFPAY ==
[2022-06-08 16:08] LABS: Alanine Aminotransferase 81 U/L (6-35); Albumin Level 4.5 g/dL (3.5-5.1); Alkaline Phosphatase 104 U/L (38-126); Amylase 61 U/L (30-110); Aspartate Amino Transferase 34 U/L (14-36); Bilirubin,Total 0.4 mg/dL (0.2-1.3); Lipase 166 U/L (23-300)
== END 2022-06-08 14:19 | disposition home or self-care (01) ==
LOC: ANHSURGERY 14:23
PROVIDERS: Visit Provider Surgery
DX: K80.20 Calculus of gallbladder without cholecystitis without obstruction (principal); Z01.818 Encounter for other preprocedural examination
CPT/HCPCS: 36415; 80076; 82150; 83690; 86850; 86900; 86901

== ENCOUNTER 2022-06-09 00:30 | Day surgery (SDC) | payer MEDICAID, SELFPAY ==
[2022-06-03 12:39] VITALS: BMI 26.2
--- NOTE | 2022-06-03 12:46 | PC.NURSE ---
Report to the Outpatient Waiting Room, entrance under the green pavilion located off [facility], at time 1:00 on date 06/09/22. Planned Procedure Time: 3:00. Time changes happen often and if your time is changed the preop area will call you the afternoon before. - You and your visitor will be asked to self-screen and do not enter if you have any COVID symptoms. - We encourage only one visitor and NO visitors under age 16 are allowed at this time. Your visitor will receive communication by the phone number that is given day of service. - The patient visitor is requested to social distance or may leave the building when not with patient due to restrictions. - A mask is OPTIONAL within the hospital. Patients may have clear liquids (water, carbonated beverages, clear teas, apple juice) until 3 hours prior to surgery (12:00) with a maximum of 20 ounces. - No food from midnight until time of surgery Take the following medications with a SIP of water the morning of surgery: TYLENOL IF NEEDED Medications to discontinue per physician: N/A Date to take last dose: N/A Please no make-up, nail kinyarwanda, hairspray, perfume, deodorant, or body powder the day of surgery. No jewelry (including any body piercings) or valuables the day of surgery, leave them at home. Please take a shower or bath the night before, or the morning of, surgery with an antibacterial soap (HIBICLENS). Wear comfortable, loose fitting clothing. - Jewelry must be removed prior to entering the operating room. Rings and piercings that are not removed may be cut off. - The hospital will not accept responsibility for valuables. - Please leave all valuables, including medications, at home the day of surgery. If you are going home after surgery, a licensed medical driver must drive you home. - NO public transportation without another adult. - We recommend that an adult stay with you for 24 hours following discharge. - We also recommend that you do not drive, make important decision, drink alcoholic beverages, or take any drugs that were not prescribed by your health care provider for at least 24 hours after your discharge time. Follow any additional instructions given to you from your surgeon. If you or anyone in your household have experienced Covid symptoms in the past week, please notify your surgeon or the nurse liaison at the phone number below for possible testing. Telephone instructions given to PT - SYDNEY FRANKLIN and asked if any additional questions and then verbalized understanding. Patient advised to call surgeon office or pre surgery nurse liaison [phone] if any additional questions.
--- NOTE | 2022-06-03 12:51 | PC.NURSE ---
Pt c/o sore throat and fever currently (~101 F). son recently diagnosed with RSV, no other sick contacts. Encouraged pt to call Dr. Lopez's office to report symptoms. Pt verbalizes understanding.
--- NOTE | 2022-06-08 14:01 | WPDANESEPPF ---
Anes - Initial Pre Proc Eval Procedure: Operation Date: 06/09/22 15:00 Proposed Procedures p Laparoscopic Cholecystectomy with Intraoperative Cholangiogram - Keith Lopez MD <Coleman Walter MD - Last Filed: 06/11/22 14:54> Date/Time: 06/08/22 14:01 <Coleman Walter MD - Last Filed: 06/11/22 14:54> Surgeon: Keith Lopez MD <Coleman Walter MD - Last Filed: 06/11/22 14:54> Pre Op Diagnosis: Cholelithiasis with Acute Pancreatitis <Coleman Walter MD - Last Filed: 06/11/22 14:54> Patient Data Age: 37 Gender: F Height: 1.71 m Weight: 77.11 kg <Coleman Walter MD - Last Filed: 06/11/22 14:54> Allergies Allergy/AdvReac Type Severity Reaction Status Date / Time No Known Allergies Allergy Verified 06/09/22 13:20 <Coleman Walter MD - Last Filed: 06/11/22 14:54> Home Medications Medication Instructions Recorded Confirmed Type acetaminophen 325 mg tablet 325 mg PO QID PRN Pain 05/29/22 06/09/22 History hydrocodone 5 mg-acetaminophen 325 1 - 2 tablet PO Q6H PRN pain #7 06/09/22 Rx mg tablet tabs ketorolac 10 mg tablet 10 mg PO Q6H 4 days #16 tabs 06/09/22 Rx <Coleman Walter MD - Last Filed: 06/11/22 14:54> Patient hx anesthesia problems: none <Viraj Morejon DO - Last Filed: 06/09/22 15:00> Family hx anesthesia problems: none <Viraj Morejon DO - Last Filed: 06/09/22 15:00> Results Review: All pre-operative results and documents have been reviewed as part of the pre-operative evaluation. <Coleman Walter MD - Last Filed: 06/11/22 14:54> PMFSH Past Medical History Medical History: Medical History (Updated 06/08/22 @ 16:20 by Renetta Nichols, CYRUS) Abnormal transaminases Biliary acute pancreatitis without necrosis or infection Cholelithiases <Coleman Walter MD - Last Filed: 06/11/22 14:54> Surgical History Surgical History: Surgical History (Updated 05/30/22 @ 16:56 by Renetta Nichols APRN) H/O abdominoplasty H/O breast augmentation History of appendectomy <Coleman Walter MD - Last Filed: 06/11/22 14:54> Family History Family History: Family History Father Diabetes mellitus <Coleman Walter MD - Last Filed: 06/11/22 14:54> Social History Social History: Social History (Updated 05/29/22 @ 17:39 by Myesha Garcia NP) Social History: 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 She has 3 children and is . She now has a fiancee. She is a lifelong nonsmoker. She denies any alcohol marijuana or illicit drugs. She does not have a durable power estate attorney for healthcare. The patient stated that she is from [place]. Code status full code. Smoking status: Never smoker Alcohol intake: never Substance use: never Substance use type: does not use Lack of Transportation: No Lack of Food: Never True Current Housing: I Have Housing Concerned About Future Housing: No Difficulty Paying Gas/Electric Bills: No Difficulty Paying for Meds: No Currently Unemployed: No Education: High School Diploma/GED Difficulty w/ Childcare or Family Care: No Additional living arrangements comments: CHILDREN Spiritual care concerns: No <Coleman Walter MD - Last Filed: 06/11/22 14:54> Anes - Eval Final PreProcedure Day of Procedure 06/08/22 14:01 <Coleman Walter MD - Last Filed: 06/11/22 14:54> Patient weight: overweight <Coleman Walter MD - Last Filed: 06/11/22 14:54> Heart: regular rate and rhythm <Coleman Walter MD - Last Filed: 06/11/22 14:54> Lungs: clear to auscultation and normal air movement <Coleman Walter MD - Last Filed: 06/11/22 14:54> Airway: Mallampati scale class II <Coleman Walter MD - Last Filed: 06/11/22 14:54> Neurological: alert and oriented <Coleman Walter MD - Last Filed:
[2022-06-09] VITALS (9 sets, daily range): BP systolic 129–173; BP diastolic 80–95; PULSE 60–74; RESP 16–20; TEMP 36.4–36.5; O2SAT 98–100
--- NOTE | ~2022-06-09 | XR_ITS ---
EXAMINATION: XR cholangiogram surg 1st inj DATE: 06/09/2022 16:16 INDICATION: Intraoperative evaluation during laparoscopic cholecystectomy TECHNIQUE: Multiple fluoroscopic images of the right upper quadrant were obtained during intraoperati ve cholangiography. A total of 117 fluoroscopic images were obtained. The amount of fluoroscopy time used during this procedure was 0.5 minutes. COMPARISON: None. FINDINGS: Cannulation of the cystic duct demonstrates filling of a normal common bile duct which tape rs smoothly distally with no intraluminal filling defects or stricture. Contrast extends into the du odenum and distal portion of the common hepatic duct which appear normal. IMPRESSION: 1. No filling defects or strictures within the cystic duct, common bile duct or contrast opacified di stal common hepatic duct. Reviewed, dictated and finalized at location B. AL ACCOUNTING CLERK IMPRESSION: 1. No filling defects or strictures within the cystic duct, common bile duct or contrast opacified distal common hepatic duct.
[2022-06-09] MEDS: LACTATED RINGERS 1,000 ML 30 ML IV CONT ×2 (13:35→16:31)
[2022-06-09] MEDS: ACETAMINOPHEN 500 MG TABLET 1000 MG PO (13:35)
[2022-06-09] MEDS: KETOROLAC 15 MG/ML VIAL (*BKC) IV PUSH (13:41)
--- NOTE | 2022-06-09 14:00 | WPDHPUPDATE1 ---
History and Physical Update Update Date/Time: 06/09/22 14:00 Patient presented with biliary pancreatitis. her pancreatitis and pain resolved. MRCP did not show any stones in the common bile duct. She was discharged in is returned now for outpatient laparoscopic cholecystectomy with intraoperative cholangiogram. History and Physical has been reviewed, including an updated exam of the patient. There are NO changes in the patient's condition. Risks, benefits, and alternatives have been discussed and questions answered. Patient agrees to proceed with procedure.
[2022-06-09] MEDS: ceFAZolin 2 GM/D5W 50 ML 2 GM/50 ML BAG IVPB (15:08)
[2022-06-09] MEDS: BUPIVACAINE/EPINEPHRINE 0.25% 50 ML VIAL 30 ML INFILTRATE (15:49)
--- NOTE | 2022-06-09 16:31 | P.OP_ITS ---
Procedure Note - Detailed Date of Procedure 06/09/22 Pre-op Diagnosis Biliary acute pancreatitis Post-op Diagnosis Other Procedure Performed Laparoscopic cholecystectomy with intraoperative cholangiogram Surgeon Keith Lopez MD [employer] Consultant Beatris HORAN Anesthesia General and Local (0.25% Marcaine with epinephrine) Indications Patient is a 37-year-old woman who presented with severe epigastric pain food and acute pancreatitis. Imaging showed she had gallstones. She passed a stone and her pancreatitis resolved. MRCP was negative for any common bile duct stones. She has done well since then and is taken to surgery now for laparoscopic cholecystectomy with intraoperative cholangiogram. Findings There was chronic inflammation. There was hypervascularity. The cystic duct was dilated. There was a stone in the cystic duct which was removed. Cholangiogram was negative. There was prompt duodenal filling and no filling defects in the common bile duct. Description of Procedure Patient was taken to surgery and induced into general anesthesia. The abdomen was prepped and draped. Trocars were placed in the usual fashion using applied Medical optical trocars and 0.25% Marcaine with epinephrine local anesthetic. A 5 mm camera was used. The gallbladder was retracted anterosuperiorly. Dissection was carried out in the cholecystohepatic triangle. This was a very bloody dissection, much more bloody than usual. The gallbladder fossa in the area of the infundibulum was quite bloody intended ooze. Eventually it was made hemostatic with the cautery. The cystic duct and cystic artery were dissected out very clearly. The cystic artery was very close to the cystic duct. We dissected the gallbladder off the liver its lower 3rd. Critical view was achieved. I then securely clipped and divided the cystic artery. I placed a clip proximally on the cystic duct. Cystic duct scissors were used and a small opening was made in the proximal cystic duct. The cholangiogram catheter was threaded into the cystic duct. We then did cholangiograms with C-arm fluoroscopy and cine views. These appeared to be negative. They were reviewed by the radiologist to called into the room and discussed them with me. There was no evidence of common bile duct stones. We then removed the cholangiogram catheter. The cystic duct was securely clipped and then divided. The gallbladder was dissected free of its remaining attachments to the liver. It was placed in Endo-Catch bag and retrieved through the 10 11 epigastric trocar. We replaced the epigastric trocar and reviewed the right upper quadrant. It was irrigated and suctioned repeatedly. All looked good with no evidence of bleeding or bile leakage. We then evacuated CO2 and removed the trocar sleeves. Skin wounds were closed with subcuticular 4-0 Monocryl skin suture. The wounds were dressed with Exofin surgical adhesive. The patient was awakened and taken to recovery in good condition. Sponge and needle counts were correct x2. Estimated Blood Loss -50 Drains No Packing No Pathology Yes (Gallbladder) Complications None Condition Stable Disposition PACU [facility] Billing Surgery - Charge Forward: Surgery Billing (Laparoscopic cholecystectomy with intraoperative cholangiogram)
== END 2022-06-09 18:39 | disposition home or self-care (01) ==
PROVIDERS: Visit Provider Surgery
PROC: 0FT44ZZ Resection of Gallbladder, Percutaneous Endoscopic Approach (ICD-10-PCS; CPT 47562; principal; 2022-06-09 15:00)
DX: K80.10 Calculus of gallbladder with chronic cholecystitis without obstruction (principal); K85.10 Biliary acute pancreatitis without necrosis or infection
CPT/HCPCS: 47563; 74300; 88304; A9270; C1713; J0330; J0690; J1100; J1885; J2250; J2270; J2405; J2704; J7120; Q9966

== ENCOUNTER 2022-09-16 14:41 | Outpatient (CLI) | payer MEDICAID, SELFPAY ==
--- NOTE | ~2022-09-16 | XR_ITS ---
EXAMINATION: XR chest 2V 09/16/2022 14:55 INDICATION: Hypertension. PROCEDURE: 2 view chest COMPARISON: No prior studies for comparison. FINDINGS: The lungs are clear. The cardiomediastinal silhouette is within normal limits. There are no pleural effusions. There is no pneumothorax suspected. There are breast implants. There are chol ecystectomy clips. IMPRESSION: 1: NO ACUTE CARDIOPULMONARY DISEASE. Reviewed, dictated and finalized at location B. [employer]
== END 2022-09-16 14:42 | disposition home or self-care (01) ==
LOC: ANHIMG 14:43
PROVIDERS: Visit Provider Emergency Medicine
DX: I10 Essential (primary) hypertension (principal)
CPT/HCPCS: 71046

== ENCOUNTER 2023-03-18 07:36 | Outpatient (CLI) | payer MEDICAID, SELFPAY ==
--- NOTE | ~2023-03-18 | US_ITS ---
EXAMINATION: US right upper quadrant DATE: 03/18/2023 07:57 INDICATION: Elevated ALT TECHNIQUE: Multiple grayscale and Doppler ultrasound images of the abdomen were obtained. COMPARISON: None available FINDINGS: Bowel gas obscures visualization of the pancreas. The visualized portions of the pancreas a re unremarkable. The liver demonstrates increased echogenicity, heterogenous echotexture, and decreas ed through transmission. No surface nodularity. Normal hepatopetal flow in the main portal vein. The gallbladder is surgically absent. The normal common bile duct measures 4 mm. IMPRESSION: 1. Diffuse hepatic steatosis. Reviewed, dictated and finalized at location A.
== END 2023-03-18 07:37 | disposition home or self-care (01) ==
LOC: ANHIMG 07:38
PROVIDERS: PCP Emergency Medicine; Visit Provider Emergency Medicine
DX: R74.01 Elevation of levels of liver transaminase levels (principal); K76.0 Fatty (change of) liver, not elsewhere classified
CPT/HCPCS: 76705

== ENCOUNTER 2023-05-12 18:13 | Emergency (ER) | payer MEDICAID, SELFPAY ==
--- NOTE | ~2023-05-12 | US_ITS ---
EXAMINATION: US OB <=14 wk fetus w TV DATE: 05/12/2023 23:48 INDICATION: Vaginal bleeding. Pelvic pain. TECHNIQUE: Real-time transabdominal and transvaginal pelvic ultrasound was performed. COMPARISON: None. FINDINGS: TRANSABDOMINAL ULTRASOUND: The uterus measures 10.9 x 5.3 x 5.4 cm. TRANSVAGINAL ULTRASOUND: There is an intrauterine gestational sac. The crown rump length measur es 4 mm, which correlates with an estimated gestational age of 6 weeks and 0 day(s) (+/-) 4 day(s). F etal heart motion is not identified by m-mode Doppler, which may be normal at this size. There is a s mall subchorionic hematoma. The right ovary measures 3.0 x 1.2 x 3.1 cm. The left ovary measures 3.3 x 2.0 x 2.6 cm. There is no free fluid in the pelvis. IMPRESSION: 1. Single intrauterine gestation with estimated date of delivery of 01/05/2024. 2. Small subchorionic hematoma. Reviewed, dictated and finalized at location E.
[2023-05-12 18:21] VITALS: BP 155/84; PULSE 96; RESP 18; TEMP 36.4; O2SAT 100
[2023-05-12 18:39] LABS: Basophils Percent Auto 0.4 % (0.2-1.2); Eosinophils Absolute Auto 0.2 K/mm3 (0-0.3); Eosinophils Percent Auto 2.2 % (0-4.4); Hematocrit 36.4 % (37.0-47.0); Hemoglobin 11.6 g/dL (12.0-15.0); Immature Granulocyte Absolute 0.03 K/mm3 (0.00-0.031); Immature Granulocyte Percent A 0.3 % (0-0.5); Lymphocytes Absolute Auto 2.23 K/mm3 (0.9-3.2); Lymphocytes Percent Auto 22.1 % (18.3-44.2); Mean Corpuscular HGB Conc 31.9 g/dl (32-36); Mean Corpuscular Hemoglobin 28.9 pg (26-34); Mean Corpuscular Volume 90.5 fl (80-100); Mean Platelet Volume 9.4 fl (7.4-10.4); Monocytes Absolute Auto 0.6 K/mm3 (0.1-0.6); Platelet Count Result 347 k/mm3 (150-375); Red Blood Count 4.02 M/mm3 (4.2-5.4); Red Cell Distribution Width 13.9 % (11.5-14.5); White Blood Count 10.1 K/mm3 (4.5-10.0)
[2023-05-12 22:37] VITALS: BP 124/86; PULSE 98; RESP 16; O2SAT 100
--- NOTE | 2023-05-13 00:27 | ED.PREGNANCY ---
HPI - General Chief complaint: Vaginal Bleeding Stated complaint: /bleeding Time Seen by Provider: 05/12/23 22:38 Source: patient Limitations: no limitations History of Present Illness HPI Narrative: 38 yo F who presents with vaginal bleeding. She had a positive home test 2 weeks ago and was to [facility] LMP 03/12/23. She noted some brown spotting on Wednesday, no discharge on Wednesday, then pink discharge only when wiping on Wednesday and Wednesday. Starting last night, started having vaginal bleeding. Not changing pad hourly, but changing frequently. Not saturated when she changes them, more for hygiene. Has noticed clots. She took ibuprofen before she arrived. Related Data Home Medications Medication Instructions Recorded Confirmed No Home Medications 06/25/22 06/25/22 Allergies Allergy/AdvReac Type Severity Reaction Status Date / Time No Known Allergies Allergy Verified 06/22/22 13:20 [facility] Past Medical History Medical History Abnormal transaminases Biliary acute pancreatitis without necrosis or infection Cholelithiases Surgical History Surgical History H/O abdominoplasty H/O breast augmentation History of appendectomy Hx laparoscopic cholecystectomy Lap Melissa w IOC on 06/09/22 Family History Family History Father Diabetes mellitus Social History Social History Social History: 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 She has 3 children (ages 15 yo, 13yo, 20 months old) and is . She now has a fiancee. She is a lifelong nonsmoker. She denies any alcohol marijuana or illicit drugs. She does not have a durable power contracts attorney for healthcare. The patient stated that she is from [place]. Code status full code. Smoking status: Never smoker Alcohol intake: never Substance use: never Substance use type: does not use Lack of Transportation: No Lack of Food: Never True Current Housing: I Have Housing Concerned About Future Housing: No Difficulty Paying Gas/Electric Bills: No Difficulty Paying for Meds: No Currently Unemployed: No Education: High School Diploma/GED Difficulty w/ Childcare or Family Care: No Living arrangements: with family Additional living arrangements comments: CHILDREN Spiritual care concerns: No Exam Const: General: healthy appearing, no acute distress and alert; No confusion, diaphoretic or ill appearing Nutritional Appearance: well nourished Limitations: no limitations HENMT: Head: normal to inspection Face and sinus: normal facial exam Other: gross auditory acuity intact Eyes: Other: mildly injected, nonicteric Neck: Neck: normal visual inspection Resp: Effort & Inspection: normal respiratory effort Cardio: Rate: regular rate, not bradycardic and not tachycardic GI: Inspection: non-distended Other: Soft, non-tender Skin: General skin exam: normal color, no jaundice and no pallor Neuro: General: patient oriented x3, moves all extremities and no focal motor deficits Extrem: General: normal to inspection Psych: Mental Status: mental status grossly normal Affect: normal affect and Sad affect present (tearful but consolable) Attitude: cooperative Course Vital Signs Vital signs: Vital Signs Temperature 97.5 F L 05/12/23 18:21 Pulse Rate 96 05/12/23 18:21 Respiratory Rate 18 05/12/23 18:21 Blood Pressure 155/84 H 05/12/23 18:21 Pulse Oximetry 100 05/12/23 18:21 Oxygen Delivery Room Air 05/12/23 18:21 Temperature 97.5 F L 05/12/23 18:21 Pulse Rate 74 05/13/23 01:11 Respiratory Rate 15 05/13/23 01:11 Blood Pressure
[2023-05-13] MEDS: ACETAMINOPHEN 500 MG TABLET 1000 MG PO (01:06)
[2023-05-13] MEDS: IBUPROFEN 600 MG TABLET PO (01:07)
[2023-05-13 01:11] VITALS: BP 128/66; PULSE 74; RESP 15; O2SAT 100
== END 2023-05-13 01:12 | disposition home or self-care (01) ==
PROVIDERS: Emergency Medicine; Emergency Provider Student in an Organized Health Care Education/Training Program; PCP Emergency Medicine
DX: O20.0 Threatened abortion (principal); O20.9 Hemorrhage in early pregnancy, unspecified; Z3A.00 Weeks of gestation of pregnancy not specified
CPT/HCPCS: 36415; 76801; 76817; 84702; 85025; 85461; 86850; 86900; 86901; 99284; A9270

== ENCOUNTER 2023-05-14 07:14 | Outpatient (CLI) | payer MEDICAID, SELFPAY | END 2023-05-14 07:15 | disposition home or self-care (01) | LOC: ANHLAB 07:16 | PROVIDERS: PCP Emergency Medicine; Visit Provider Obstetrics & Gynecology | DX: O20.0 Threatened abortion (principal); Z3A.00 Weeks of gestation of pregnancy not specified | CPT/HCPCS: 36415; 84702 ==

== ENCOUNTER 2023-10-06 11:29 | Outpatient (CLI) | payer MEDICAID, SELFPAY ==
[2023-10-06 12:59] LABS: Influenza A QL RT-PCR Positive (Negative); Influenza B QL RT-PCR Negative (Negative); RSV RNA, RT-PCR Negative (Negative); SARS-CoV-2 RNA PCR Negative (Negative)
== END 2023-10-06 11:30 | disposition home or self-care (01) ==
LOC: ANHLAB 11:33
PROVIDERS: PCP Emergency Medicine; Visit Provider Emergency Medicine
DX: J06.9 Acute upper respiratory infection, unspecified (principal); Z20.822 Contact with and (suspected) exposure to COVID-19
CPT/HCPCS: 87637

== ENCOUNTER 2024-10-14 20:06 | Inpatient (IN) | payer SELFPAY ==
--- NOTE | ~2024-10-14 | XR_ITS ---
XR chest 1V portable DATE: 10/14/2024 20:29 INDICATION: Chest pain TECHNIQUE: Portable upright AP chest on 10/14/20242022 hours COMPARISON: 09/16/2022 2 view chest FINDINGS: Normal heart size. No hilar or mediastinal enlargement. No pulmonary infiltrate or consolid ation, pleural effusion or pulmonary vascular congestion or pneumothorax. Status post cholecystectomy. Included skeletal structures are unremarkable. IMPRESSION: No active cardiopulmonary disease Reviewed, dictated and finalized at location A.
--- NOTE | 2024-10-14 20:08 | ECG_ITS ---
Test Date: 2024-10-14 20:19:51 Measurements Intervals [place] Rate: 80 P: 40 CT: 160 QRS: 0 QRSD: 88 T: -9 QT: 363 QTc: 419 Interpretive Statements SINUS RHYTHM MINIMAL VOLTAGE CRITERIA FOR LVH, CONSIDER NORMAL VARIANT [MEETS CRITERIA IN ONE OF: R(aVL), S(V1), R(V5), R(V5/V6)+S(V1)] POOR R-WAVE PROGRESSION T-WAVE ABNORMALITY IN THE INFEROLATERAL LEADS, CONSIDER ISCHEMIA No previous ECG available for comparison Electronically Signed On 10-15-2024 13:22:34 CDT by Denzel Amezcua M.D.
--- OUTSIDE RECORDS SUMMARY | 2024-10-14 20:08 | XMS_ITS ---
Author Organization [facility] Address [address] [place] [address] Care Team Providers Care Instructional Materials Director Name Role Phone Mark Anthony Posada [phone] REASON FOR VISIT [facility], interested in peptide therapy, no prior use of GLP-1 medications, reports gaining 30 lbs following BBL surgery 2 years ago, Desired weight loss: 20-25lbs, No history MTC orMEN2., Concerned about future DM and OA Medications Medication SIG (Take, Route, Frequency, Duration) Notes Start Date End Date Status Multi Vitamin - 1 tablet Orally Once a day Active Probiotic - as directed Orally Active Losartan Potassium 50 MG 1 tablet Orally Once a day Active Vitamin D 50 MCG (1999) 1 tablet Orally Once a day Active Vital Signs Temperature 98.2 degrees Fahrenheit 05/08/20 24 Blood pressure systolic 137 mm Hg 05/08/20 24 Blood pressure diastolic 91 mm Hg 024 Respiratory Rate 18 /min 05/08/2024 Height 66.3 in 05/08/2024 Weight 211.8 lbs 05/08/2024 BMI 33.87 kg/m2 05/08/2024 Oximetry 97 % 05/08/2024 Encounters Encounter Location Date Provider Diagnosis [facility] ([address]) [address] [place] [id number] 05/08/2024 Mark Anthony Posada Chronic fatigue, unspecified R53.82 ; Abnormal weight gain R63.5 ; Other fatigue R53.83 and Other malaise R53.81 Assessments Encounter Date Diagnosis (ICD Code) Assessment Notes Treatment Notes Treatment Clinical Notes Section Notes 05/08/2024 Chronic fatigue, unspecified (ICD-10 - R53.82) 05/08/2024 Abnormal weight gain (ICD-10 - R63.5) 05/08/2024 Other fatigue (ICD-10 - R53.83) 05/08/2024 Other malaise (ICD-10 - R53.81) Plan Of Treatment Next Appt Details Follow Up: 1 Week, Reason: G LP-1 Agonist Administration Procedure Notes * Category Sub-Category Detail Notes [facility] Weight Management tirzepatide Indication: weig ht loss Concentration: 10 mg/mL Volume Administered: 0.1 mL Dose Administered: 1 mg Route: SQ Location: [facility] Frequency: weekly Lot Number/Expiration: Medication Source: [facility] Adverse Reaction: None Progress Notes * Garo ANDRESB: 7 (39 yo F)Acc No.[id number]:05/08/2024 DISTANCE EDUCATION COORDINATOR Weight Loss Patient: Jennifer FOWLER Pat Provider: Liset Posada MD :[id number] A ge:39 Y S ex:Female Date:05/08/2024 Address:[address] [place] [address] Subjective: * Chief Complaints: * 1 . [facility], interested in peptide therapy, no prior use of GLP- 1 medications, reports gaining 30 lbs following BBL surgery 2 years ago. 2. Desired weight loss: 20-25lbs. 3. No history MTC or MEN2.. 4. Concerned about future DM and OA. * HPI: * Wellness & Aesthetics: The risks, benefits & alternatives were discussed regarding available treatment options. A treatment path was determined after reviewing the patients medical records, our verbal discussions and via joint decision-making Consents for our planned treatments were signed and are on file. No prior use of GLP-1 medications. She denies any history of DM2. Recent labwork for CBC, CMP, and TSH were within normal range. Low vitamin D noted. * Medical History: H ypertension, S/p cholecystectomy, vitamin D deficiency. * Surgical History: c holecystectomy 05/2023. * Medications: T aking Probiotic - Tablet Chewable as directed Orally , Taking Multi Vitamin - Tablet 1 tablet Orally Once a day , Taking Vitamin D 50 MCG (2000 UT) Tablet 1 tablet Orally Once a day , Taking Losartan Potassium 50 MG Tablet 1 tablet Orally Once a day Objective: * Vitals: T emp:98.2F, BP:137/91mm Hg, HR:89/min, RR:18/min, Pulse Oximetry:97%, Ht: 66.3 in, Wt: 211.8 lbs, BMI:33.87Index, Neck circ: 13 in, Waist circ: 36.5 in, Hip Circ: 50 in. * Dermatology Examination: Assessment: * Assessment: 1. A bnormal weight gain - R63.5 (Primary) 2 . C hronic fatigue, unspecified - R53.82 3 . O ther fatigue - R53.83 4 . O ther malaise - R53.81 Plan: * Treatment: * Procedures: [facility]: Weight Management: tirzepatide I ndication w eight loss C oncentration 1 0 mg/mL V olume Administered 0 .1 mL D ose Administered 1 mg R oute S Q L ocation R UA F requency w eekly L ot Number/Expiration 0 M edication Source H [facility] A dverse Reaction N one * Follow Up: 1 Week (Reason: GLP-1 Agonist Administration) * Billing Information: * Visit Code: * Procedure Codes: 81106 [facility] Initial Consultation (tirzepatide). Images * Dermatology Examination/mobi _05/08/2024 15:40:54 Dermatology Examination/[facility] _05/08/2024 15:41:09 * Electronic signature of Benny Posada MD, FAAAAI on 10/14/2024 at 08:08 PM CDT Sign off status: Pending * Provider: Liset Posada MD Date: 1 Generated for Printi ng/Flaquito/eTransmitting on: 0 10/14/2024 08:08 PM CDT History and Physical Notes * HPI (History of Present Illness) Category Sub-Category Detail Notes Category Not es *Wellness & Aesthetics The r isks, benefits & alternatives were discussed regarding available treatment options. A treatment path was determined after reviewing the patients medical records, our verbal discussions and via joint decision-making Consents for our planned treatments were signed and are on file. No prior use of GLP-1 medications. She denies any history of DM2. Recent labwork for CBC, CMP, and TSH were within normal range. Low vitamin D noted.
--- OUTSIDE RECORDS SUMMARY | 2024-10-14 20:09 | XMS_ITS | Data Portability ---
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 Patient will come back in a year unless there are new symptoms. shannon Not available 10/07/2022 14:29:41 10/11/2023 10/11/2023 Annual gynecological exam performed. Patient will come back in a year unless there are new symptoms. [email or web address] Not available 10/11/2023 10:49:03 Plan of Treatment Reminders Order Date Submit Date Provider Last Modified By Organization Details Last Modified Time Details Appointments None recorded . Lab pregnanc y test, urine 2022 023 shannon [address], [address], [place], [address], 3 17:16:19 urinalys is, dipstick 2022 023 agustin Barker, [address], [place], [address], 3 14:18:45 Referral None recorded . Procedures None recorded . Surgeries None recorded . Imaging None recorded . Medication Orders Slynd 4 mg (28) tablet 2023 024 [id number], [address] [place], [address], 4 16:19:07 Macrobid 100 mg capsule 2022 023 [id number] [address] [place], [address], 3 17:03:51 Slynd 4 mg (28) tablet 2022 023 [id number] [address] [place], [address], 3 17:03:58 Patient TargetsNo targets recorded. Patient InstructionsNo instructions recorded. Reason for Referral None Reported. Results Created Date Observation Date Name Description Value Unit Range Abnormal Flag Note LastModifiedBy Organization Detail LastModifiedTime 10/08/19 23 10/07/2022 IMAGE GUIDE D PAP AND HPV REGAR DLESS image guided Pap, HPV regardless of Pap result SEE RESULT S BELOW abnormal CASE REPOR T: Cytol ogy Gynec ologi carlota Repor t Case: [id number] Autho thuy g Provi saad: Jazlyn Sewell, PILO Colle cted: 10/07 1624 Order ing Locat ion: [place] Patho logy Recei anuj: 10/08 0851 First Scree n: Tanisha rMarie ica Rescr een: Jo Amador Speci men: Scree minda Pap - Image d, Cervi x STATE MENT OF ADEQU ACY: Satis facto ry for evalu ation Trans forma tion zone compo nent prese nt FINAL DIAGN OSIS: Negat lorene for Intra epith elial Lesio n or Layton laughlin (NIL) . Elect arturo stahl by Jo Amador on 2022 at 7:56 PM ----- ----- ----- ----- ----- ----- ----- ----- ----- ----- ----- ----- ----- ----- ----- ----- ----- ---- HPV RESUL TS: HPV mRNA E6/E7 : Posit lorene - HPV mRNA Detec heike HPV GENOT YPE 16 (SHARA) : Not Detec heike HPV GENOT YPE 18/45 (SHARA) : Not Detec heike NOTE: This high risk HPV mRNA assay detec ts fourt een high- risk HPV types (16, 18, 31, 33, 35, 39, 45, 51, 52, 56, 58, 59, 66, 68) witho ut diffe renti ation . This assay can diffe renti ate HPV 16 from HPV 18/45 , but does not diffe renti ate betwe en HPV 18 and HPV 45. A negat lorene HPV 16, 18/45 genot ype assay resul t does not exclu de the possi bilit y of cytol ogic abnor malit ies or of futur e or under lying SAVANA 1, SAVANA 3 or cance r. COMME NT: Note: This speci men was revie wed by a Cytot echno logis t and/o r Patho logis t (as indic ated in this repor t) after evalu ation using the Thinp rep Imagi ng Syste m. CLINI [facility] INFOR MATIO N: Menst rual Statu s: LMP (if appli cable ): Clini [facility] Histo ry/Pr eviou s Pap: Type of Neopl brett (if appli cable ): Signi fican t Clini [facility] Findi ngs: Other Histo ry: Hormo katina (if appli cable ): PAP EDUCA KARLA L NOTE: The Pap Test is a scree minda test with an inher ent false negat lorene rate. Liqui d-bas ed sampl ing may decre ase, but will not elimi chirag, false negat lorene resul ts. A negat lorene resul t does not precl ude the prese nce and/o r devel opmen t of disea se, since the prese nce of abnor mal cells in the sampl e depen ds on the locat ion of the lesio n and sampl ing techn ique. Samantha nued regul ar scree minda is the best metho d of cance r preve ntion . If repor heike cytol ogic findi ng do not corre late with physi carlota and/o r histo rical findi ngs, aurora marlow tigat ion is recom dean d, as clini stephan gandhi nted. Not Available [facility] (Lab) [address], [place], [address], 10/12/2022 20:59:14 10/08/19 23 10/07/2022 TRICH OMONA S VAGIN EDNA (RRNA ) trichomonas vaginalis ribosomal RNA (rrna) Negati ve negati ve Not Available [facility] (Lab) [address], [place], [address], 10/12/2022 20:59:14 10/08/19 23 10/07/2022 CT/GC (SHARA) , THINP REP VIAL chlamydia trachomatis, PCR Negati ve negati ve Not Available [facility] (Lab) [address], [place], [address], 10/12/2022 20:59:15 10/08/19 23 10/07/2022 CT/GC (SHARA) , THINP REP VIAL neisseria gonorrhoeae, PCR Negati ve negati ve Not Available [facility] (Lab) [address], [place], [address], 10/12/2022 20:59:15 10/08/19 23 10/07/2022 CULTU RE: URINE result report SEE RESULT S BELOW abnormal Test: Cultu re: Urine Speci men Sourc e: Urine Voide d Speci men Type: Urine Speci men Date: 2022 4:24 PM Resul t Date: 2022 9:36 AM Resul t Statu s: Final resul t Abnor mal: Yes Mena wolfe Lab: [facility] [address] [facility] [address] Tel: CULTU RE ----- ----- ----- --- 10,00 0-25, 000 CFU/m l Esche tony a coli (Abno rmal) SUSCE PTIBI LITY ----- ----- ----- --- Esche tony a coli METHO D BAL ----- ----- ----- ----- ----- ---- ----- ----- ----- ----- ----- AMIKA SAVANA <=16 ug/mL Susce ptibl e AMPIC ILLIN <=8 ug/mL Susce ptibl e AMPIC ILLIN /SULB ACTAM <=1 ug/mL Susce ptibl e AZTRE ONAM <=4 ug/mL Susce ptibl e CEFAZ SOURAV <=2 ug/mL Susce ptibl e CEFEP CHANTALE <=2 ug/mL Susce ptibl e CEFOX ITIN <=8 ug/mL Susce ptibl e CEFTA ZIDIM E <=1 ug/mL Susce ptibl e CEFTR IAXON E <=1 ug/mL Susce ptibl e CIPRO FLOXA SAVANA <=1 ug/mL Susce ptibl e GENTA MICIN <=1 ug/mL Susce ptibl e LEVOF LOXAC IN <=0.2 5 ug/mL Susce ptibl e MEROP ENEM <=1 ug/mL Susce ptibl e NITRO FURAN TOIN <=32 ug/mL Susce ptibl e PIPER ACILL IN/TA ZOBAC OLVERA <=4 ug/mL Susce ptibl e TOBRA MYCIN <=1 ug/mL Susce ptibl e TRIME THOPR IM/WALKER LFAME THOXA ZOLE <=2 ug/mL Susce ptibl e Not Available [facility] (Lab) [address], [place], [address], 10/12/2022 20:59:15 11/20/19 23 11/19/2022 CULTU RE: URINE result report SEE RESULT S BELOW Test: Cultu re: Urine Speci men Sourc e: Urine Voide d Speci men Type: Urine Speci men Date: 4/27/ 2023 2:22 PM Resul t Date: 2022 7:14 AM Resul t Statu s: Final resul t Abnor mal: No Resul ting Lab: [facility] [address] [facility] [address] Tel: CULTU RE ----- ----- ----- --- No growt h in 1 day (dete ction level of 10,00 0 colon ies / ml.) Not Available [facility] (Lab) [address], [place], [address], 11/21/2022 08:17:44 11/20/19 23 11/19/2022 urina lysis , dipst ick Leukocytes neg Not Available [facility] [address], [place], [address], 11/19/2022 14:15:27 11/20/19 23 11/19/2022 urina lysis , dipst ick Nitrite neg Not Available [facility] [address], [place], [address], 11/19/2022 14:15:27 11/20/19 23 11/19/2022 urina lysis , dipst ick Urobilinogen neg Not Available [facility] ana [address], [place], [address], 11/19/2022 14:15:27 11/20/19 23 11/19/2022 urina lysis , dipst ick Protein neg Not Available [facility] [address], [place], [address], 11/19/2022 14:15:27 11/20/19 23 11/19/2022 urina lysis , dipst ick pH 5 Not Available [facility] [address], [place], [address], 11/19/2022 14:15:27 11/20/19 23 11/19/2022 urina lysis , dipst ick Specific [place] 1.005 Not Available [facility] stephanie [address], [place], [address], 11/19/2022 14:15:27 11/20/19 23 11/19/2022 urina lysis , dipst ick Ketone neg Not Available [facility] [address], [place], [address], 11/19/2022 14:15:27 11/20/19 23 11/19/2022 urina lysis , dipst ick Bilirubin neg Not Available [facility] [address], [place], [address], 11/19/2022 14:15:27 11/20/19 23 11/19/2022 urina lysis , dipst ick Glucose neg Not Available [facility] [address], [place], [address], 11/19/2022 14:15:27 11/20/19 23 11/19/2022 urina lysis , dipst ick Appearance clear Not Available [facility] anglin [address], [place], [address], 11/19/2022 14:15:27 11/20/19 23 11/19/2022 urina lysis , dipst ick Color lt yellow Not Available [facility] [address], [place], [address], 11/19/2022 14:15:27 01/12/20 23 01/11/2023 pregn prakash test, urine HCG negati ve Not Available [facility] [address], [place], [address], 01/11/2023 17:16:12 05/24/20 23 05/24/2023 BHCG, QUANT ITATI VE B-HCG 8.7 mIU/m L This assay was perfo rmed using [employer] n reage nts and test kits. Value s obtai maciel with other assay metho ds or kits canno t be used inter [facility] . Refer ence Range s: Non-p regna nt, preme nopau mohsen women : 0.0-5 .3 mIU/m L Postm enopa usal women : 0.0-7 .0 mIU/m L Kyra l Pregn prakash: Gesta karla l Age bHCG Conc. - mIU/m L 3 Weeks 5.8 - 71.7 4 Weeks 9.5 - 750 5 Weeks 217-7 138 6 Weeks 158 - 31,79 5 7 Weeks 3,697 - 162,5 63 8 Weeks 32,06 5 - 149,5 71 9 Weeks 63,80 3 - 151,4 10 10 Weeks 46,50 9 - 186,9 77 12 Weeks 27,83 2 - 210,6 12 14 Weeks 13,95 0 - 62,53 0 15 Weeks 12,03 9 - 70,97 1 16 Weeks 9,040 - 56,45 1 17 Weeks 8,175 - 55,86 8 18 Weeks 8,099 - 58,17 6 Not Available [facility] (Lab) [address], [place], [address], 05/25/2023 04:51:44 05/31/20 23 05/31/2023 BHCG, QUANT ITATI VE B-HCG 1.6 mIU/m L This assay was perfo rmed using [employer] reage nts and test kits. Value s obtai maciel with other assay metho ds or kits canno t be used inter [facility] . Refer ence Range s: Non-p regna nt, preme nopau mohsen women : 0.0-5 .3 mIU/m L Postm enopa usal women : 0.0-7 .0 mIU/m L Kyra l Pregn prakash: Gesta karla l Age bHCG Conc. - mIU/m L 3 Weeks 5.8 - 71.7 4 Weeks 9.5 - 750 5 Weeks 217-7 138 6 Weeks 158 - 31,79 5 7 Weeks 3,697 - 162,5 63 8 Weeks 32,06 5 - 149,5 71 9 Weeks 63,80 3 - 151,4 10 10 Weeks 46,50 9 - 186,9 77 12 Weeks 27,83 2 - 210,6 12 14 Weeks 13,95 0 - 62,53 0 15 Weeks 12,03 9 - 70,97 1 16 Weeks 9,040 - 56,45 1 17 Weeks 8,175 - 55,86 8 18 Weeks 8,099 - 58,17 6 Not Available [facility] (Lab) [address], [place], [address], 06/01/2023 06:22:04 10/11/19 24 10/11/2023 IMAGE GUIDE D PAP AND HPV REGAR DLESS image guided Pap, HPV regardless of Pap result SEE RESULT S BELOW CASE REPOR T: Cytol ogy Gynec ologi carlota Repor t Case: [id number] Autho thuy fermin Provi saad: Jazlyn Sewell, PILO Colle cted: 10/10 1643 Order ing Locat ion: [place] Patho logy Recei anuj: 10/11 0913 First Scree n: Teresa Love, [place] Rescr een: Jo Amador Speci men: Carmensanjay parkg Pap - Image d, Cervi x STATE MENT OF ADEQU ACY: Satis facto ry for evalu ation Trans forma tion zone compo nent prese nt FINAL DIAGN OSIS: Negat lorene for Intra epith elial Lesamanda n or Layton laughlin (NIL) . Elect arturo stephens d by Jo Amador on 2023 at 7:28 PM ----- ----- ----- ----- ----- ----- ----- ----- ----- ----- ----- ----- ----- ----- ----- ----- ----- ---- HPV RESUL TS: HPV mRNA E6/E7 : No HPV mRNA Detec heike NOTE: This high risk HPV mRNA assay detec ts fourt een high- risk HPV types (16, 18, 31, 33, 35, 39, 45, 51, 52, 56, 58, 59, 66, 68) witho ut diffe renti ation . COMME NT: This speci men was revie wed by a Cytot echno logis t and/o r Patho logis t (as indic ated in this repor t) after evalu ation using the Thinp rep Imagi ng Syste m. CLINI CARL[facility] INFOR MATIO N: Menst rual Statu s: LMP (if appli cable ): 2023 Clini [facility] Histo ry/Pr eviou s Pap: Type of Neopl brett (if appli cable ): Signi fican t Clini [facility]ota Findi ngs: Other Histo ry: Hormo katina (if appli cable ): PAP EDUCA KARLA L NOTE: The Pap Test is a scree minda test with an inher ent false negat lorene rate. Liqui d-bas ed sampl ing may decre ase, but will not elimi chirag, false negat lorene resul ts. A negat lorene resul t does not precl ude the prese nce and/o r devel opmen t of disea se, since the prese nce of abnor mal cells in the sampl e depen ds on the locat ion of the lesio n and sampl ing techn ique. Samantha nued regul ar scree minda is the best metho d of cance r preve ntion . If repor heike cytol ogic findi ng do not corre late with physi carlota and/o r histo rical findi ngs, furth er inves tigat ion is recom dean d, as clini stephan gandhi nted. Not Available [facility] (Lab) [address] , [place], [address], 10/14/2023 20:31:11 10/11/19 24 10/11/2023 TRICH OMONA S VAGIN EDNA (RRNA ) trichomonas vaginalis ribosomal RNA (rrna) Negati ve negati ve Not Available [facility] (Lab) [address], [place], [address], 10/14/2023 20:31:11 10/11/19 24 10/11/2023 CT/GC (SHARA) , THINP REP VIAL chlamydia trachomatis, PCR Negati ve negati ve Not Available [facility] (Lab) [address], [place], [address], 10/14/2023 20:31:12 10/11/19 24 10/11/2023 CT/GC (SHARA) , THINP REP VIAL neisseria gonorrhoeae, PCR Negati ve negati ve Not Available [facility] (Lab) [address], [place], [address], 10/14/2023 20:31:12 Result Notes None recorded. Procedures Surgical History Date Name Laterality Status Provider Name and Address Organization Details Recorded Time 12/19/19 23 liposuction [facility] subcutaneous tissue completed [facility] 01/11/2023 17:05:18 10/08/19 23 Date of Last Pap Smear completed Sakina Ortiz [facility] 10/11/2023 10:49:41 Abdominoplasty completed [facility] 10/07/2022 14:45:45 Imaging Results None recorded. Procedure Notes None recorded. Medical Equipment None Reported. Allergies No known drug allergies Medications Name Sig Start Date Stop Date Status Note LastModified by Organization Details LastModified Time carvedilol 6.25 mg tablet TAKE 1 TABLET BY MOUTH TWICE A DAY WITH FOOD 10/10 completed Not Available Not Available Not Available prednisone 10 mg tablet TAKE 1 TABLET BY MOUTH EVERY DAY 10/07 completed Not Available Not Available Not Available azithromyci n 250 mg tablet TAKE 2 TABLETS BY MOUTH ONE TIME TODAY THEN 1 TABLET (250 MG) ORALLY DAILY FOR 4 DAYS 10/10 completed Not Available Not Available Not Available hydrocodone 5 mg-acetamin ophen 325 mg tablet TAKE 1 - 2 TABLETS BY MOUTH EVERY 6 HOURS NEEDED FOR PAIN 10/07 completed Not Available Not Available Not Available amlodipine 5 mg tablet TAKE 1 TABLET BY MOUTH EVERY DAY 01/11 completed Not Available Not Available Not Available acyclovir 800 mg tablet TAKE 1 TABLET BY MOUTH 3 TIMES A DAY FOR 10 DAYS 10/07 completed Not Available Not Available Not Available ketorolac 10 mg tablet TAKE 1 TABLET BY MOUTH EVERY 6 HOURS FOR 4 DAYS 10/07 completed Not Available Not Available Not Available amoxicillin 875 mg tablet TAKE 1 TABLET BY MOUTH TWICE DAILY FOR 10 DAYS 10/07 completed Not Available Not Available Not Available triamcinolo ne acetonide 0.025 % topical cream APPLY TO AFFECTED AREA TWICE A DAY 10/07 completed Not Available Not Available Not Available amlodipine 10 mg tablet TAKE 1 TABLET (10 MG) BY MOUTH DAILY. active Not Available Not Available No t Available cephalexin 500 mg capsule TAKE 1 CAPSULE BY MOUTH EVERY 6 HOURS FOR 7 DAYS 10/10 completed Not Available Not Available Not Available ergocalcife rol (vitamin D2) 1,250 mcg (50,000 unit) capsule TAKE 1 CAPSULE BY MOUTH ONE TIME PER WEEK active Not Available Not Available No t Available nitrofurant oin monohydrate /macrocryst als 100 mg capsule TAKE 1 CAPSULE BY MOUTH EVERY 12 HOURS FOR 7 DAYS 01/11 completed Not Available Not Available Not Available Alyacen 1/35 (28) 1 mg-35 mcg tablet take 1 tablet by mouth once daily 10/07 completed Not Available Not Available Not Available Slynd 4 mg (28) tablet Take 1 tablet every day by oral route. 2023 active Not Available Not Available Not Avai lable Vitals Date Recorded Body height Body mass index (BMI) Body weight Systolic blood pressure Diastolic blood pressure Provider Name and Address Organization Details Last Updated DateTime 10/07/2022 172.72 cm 30.5 kg/m2 91550.63 g 140 mm[Hg] 92 mm[Hg] Shyla Freeman [facility] 15:13:54 Date Recorded Body height Systolic blood pressure Diastolic blood pressure Provider Name and Address Organization Details Last Updated DateTime 11/19/2022 172.72 cm 151 mm[Hg] 90 mm[Hg] Shyla Freeman [facility] 11/19/2022 14:10:41 Date Recorded Body height Body mass index (BMI) Body weight Systolic blood pressure Diastolic blood pressure Provider Name and Address Organization Details Last Updated DateTime 01/11/2023 172.72 cm 30.4 kg/m2 33114.47 g 150 mm[Hg] 91 mm[Hg] Shyla Freeman [facility] 3 17:03:43 Date Recorded Body height Body mass index (BMI) Body weight Systolic blood pressure Diastolic blood pressure Provider Name and Address Organization Details Last Updated DateTime 05/24/2023 172.72 cm 30.9 kg/m2 97400.97 g 117 mm[Hg] 77 mm[Hg] Gianna Reyesbelen [facility] 3 16:49:51 Date Recorded Body height Body mass index (BMI) Body weight Systolic blood pressure Diastolic blood pressure Provider Name and Address Organization Details Last Updated DateTime 10/11/2023 172.72 cm 29.6 kg/m2 38607.51 g 127 mm[Hg] 86 mm[Hg] Sakina Ortiz [facility] 4 15:46:33 Social History Question Answer Notes LastModified by Organizat ion Details LastModified Time Tobacco Smoking Status Never Smoker Candelaria carroll, [facility] 01/11/2023 16:36:40 What Is Your Level Of Alcohol Consumption? None Information not available 10/07/2022 Are You Blind Or Do You Have Difficulty Seeing? No Information not available 10/07/2022 What Is Your Level Of Caffeine Consumption? Occasional Information not available 10/07/2022 How Much Tobacco Do You Chew? None Information not available 10/07/2022 In The 14 Days Before Symptom Onset, Have You Had Close Contact With A Laboratory-confir med COVID-19 While That Case Was Ill? No Information not available 10/07/2022 In The 14 Days Before Symptom Onset, Have You Had Close Contact With A Person Who Is Under Investigation For COVID-19 While That Person Was Ill? No Information not available 10/07/2022 Have You Been To An Area Known To Be High Risk For COVID-19? No Information not available 10/07/2022 Are You Deaf Or Do You Have Serious Difficulty Hearing? No Information not available 10/07/2022 What Type Of Diet Are You Following? REGULAR Information not available 10/07/2022 What Is The Highest Grade Or Level Of School You Have Completed Or The Highest Degree You Have Received? [id number] Information not available 10/07/2022 What Is Your Occupation? [employer] Information not available 10/07/2022 Are There Any Guns Present In Your Home? No Information not available 10/07/2022 Do You Use Protection During Sex? Usually Information not available 10/07/2022 Do You Use Your Seat Belt Or Car Seat Routinely? Yes Information not available 10/07/2022 Do You Have Smoke And Carbon Monoxide Detectors In Your Home? No Information not available 10/07/2022 How Much Tobacco Do You Smoke? No Information not available 10/07/2022 Do You Feel Stressed (tense, Restless, Nervous, Or Anxious, Or Unable To Sleep At Night)? [id number] Information not available 10/07/2022 Do You Use Any Illicit Or Recreational Drugs? No Information not available 10/07/2022 Do You Use Sunscreen Routinely? Yes Information not available 10/07/2022 Have You Used IV Drugs? No Information not available 10/07/2022 Sex: Unknown Functional Status Question Answer Note LastModified by Organizat ion Details LastModified Time Do you have difficulty walking or climbing stairs? No Information not available 01/11/2023 Are you able to walk? YESWOREST Information not available 10/07/2022 Are you able to care for yourself? Yes Information not available 01/11/2023 Do you have difficulty dressing or bathing? No Information not available 01/11/2023 What is your exercise level? Occasional Information not available 10/07/2022 Mental Status None recorded. Family History Relationship Description Onset Age of this Age Resolved Age Notes LastModified by Organization Details LastModified Time Father Heart disease [email or web address] Not available 09/23 14:42:33 Medical History Condition Response Allergies (Food, seasonal, environmental ) N Other N Breast Cancer N Drug/Latex Allergies/Reactions N Blood Transfusion N Lung Disease N Dermatologic Disorders N Defects or Inherited Disease N Breast Problem N Gestational Diabetes N Hematologic disorders N Anesthesia Complications N History of STI N Deep Vein Thrombosis N Polycystic ovary syndrome N Anxiety Disorder N Autoimmune disease N Arthritis N Polyps N Infertility N History of abnormal pap N Acid Reflux (GERD) N Cancer N Varicosities N Stroke N Neurologic/Epilepsy N Endometriosis N High Cholesterol N Fibromyalgia N Headaches N Kidney Disease N Heart Problems N Kidney or Bladder Problems N Thyroid Problems N GI Problems N Eating Disorder N Anemia N Art (IVF or FET) N Psychiatric Illness N Ovarian Cancer N Diabetes N Pulmonary (TB, Asthma) N Hepatitis/Liver Disease N No Past Medical History N Eczema N Urinary Tract Infection N Abuse/Domestic Violence N Asthma N Trauma/Violence N Depression/ depression N Heart Disease N Pre-Eclampsia N Hypertension Y Osteoporosis N Thrombophilias N Gynecological History Statement/Question Response Abnormal Pap N Flow Moderate Date of LMP 09/12/2023 On BCP's at Conception? N N Was last menstrual period normal Y STIs/STDs N HPV Vaccine N Duration of Flow (days) 5 Current Control Method Condoms Age at First Child 23 Sexually Active? Y Menses Monthly Y Age of first menstrual cycle 15 Date of Last Pap Smear 10/07/2022 Sexual Problems? N Desired Control Method Unknown LMP Approximate N Obstetrics History GPAL:G 4 P 0 0 1 3 Type Value Spontaneous 1 Living 3 Total 4 Past Encounters Encounter ID Performer Location Encounter Start Date Encounter Closed Date Diagnosis/Indication Diagnosis SNOMED-CT Code Diagnosis ICD10 Code Diagnosis Note [id number] IDRIS Bradshaw [facility] [address] [address] 10/07/2022 14:06:47 10/07/2022 15:50:08 Contraception care management 796272932 Z30.9 Gynecologi c examination [id number] Z01.419 Z11.51 Take Calcium with Vitamin D 1200mg daily if not receiving in daily diet. It is strongly advised to have an annual flu shot and up can obtain at most pharmacies . If you have not had a TDap shot in the last 10 years you should obtain one as well. Discussed with patient & provided with informatio n regarding Gardisil vaccine to prevent the 4 strains for HPV that cause cervical cancer if under age 26. Encourage safe sexual practices, to use condoms and limit partners if not already in a monogamous relationsh ip. Do monthly self breast exams. Have mammogram yearly or every other year depending on family history. BRCA testing is now available for patients with strong genetic history of female cancer. If interested contact the office. Engage in daily exercise of low impact aerobic exercise 45-60 minutes 4-5 times weekly. Avoid tobacco and illicit drugs as well as using moderation with alcohol intake less than 1-2 8 oz beverages daily. This lifestyle behavior pattern will lead to less health conditions and longer life span. If BMI greater than 25 weight watchers or dietary consult advised. Patient received above instructio ns, and questions have been answered. If you have any questions please call or respond to this email. Patient was made aware of the patient portal and may obtain a paper copy of today's plan if desired. WWEBC - condomswou ld like to discuss BC methodsDen ies hx of DVT/PE, Stroke/AL, cancer, liver disease, or migraine with auraShe does have HTN Discussed all control options in great detail. Pt would like to start POP. She is aware of the risks and benefits. She has contraindi cations to use of OCP or other estrogen containing hormonal therapy. Pt will start her pills on the first wednesday following the start of her period. She is aware it is not effective for control the first month. She is also aware of the importance of taking at the same time every day. Encouraged use of condoms as the pill does not protect against STD's. Will return in 3 months for med check. Consent was read and signed. Pt verbalized understand ing.Slynd samples given x 3 monthsNo hx of abnormal papsPap last 2019 - normalPap done todaySTI testing added to papBlood STI testing declinedUr inary frequency x 1 week, seems to almost be resolved. Denies urinary pain, flank pains, pelvic pain, n/v/f. UA normal. Cx sent. Decrease caffeine intake.RTC for med check in 3 monthsF/u with PCP for BP check Urinary symptoms [id number] 08 R39.9 [id number] IDRIS Bradshaw [address],[facility] [place] [address] 11/19/2022 14:00:17 11/19/2022 15:10:37 Urinary symptoms [id number] R39.9 urine cx sentagreed to send out treatment, as symptoms feel very similar to her recent UTIR/B/A/S E discussede ncouraged to increase water intake, decrease caffeinesh e had questions about recent HPV (+) pap smear. We discussed HPV in-depth, discussed keeping strong immune system, healthy lifestyle, avoid smokingpre cautions discussed Time spent in visit is a total of 18 mins with at least 50% of visit consisting of counseling and review of plan of care. BP precaution s discussed. Continue keeping log at home, f/u with PCP History of human papilloma virus infection [id number] Z86.19 [id number] IDRIS Bradshaw Barker [address],[facility] [place] [address] 01/11/2023 16:36:21 01/12/2023 16:11:24 Amenorrhea [id number] N91.2 [facility] [id number] Z30.9 Discussed all BC methodsDes ires Mirena IUD She has been counseled on all of the r/b/a of placement of an intrauteri ne device that include but are not limited to uterine perforatio n, injury to cervix, vagina, bladder, and bowel.Risk s of bleeding due to injury or increased irregular bleeding due to progestin effect of the device. Risks of infection would be increased within the first 21 days of placement with concommita nt cervicitis . She understand s that the device will need to be removed in this instance due to increased risk of Pelvic inflammato ry disease. Patient is aware she is at higher risk for STD and if contracted she could lose her fertility. Pt is aware that if occurs that she should contact office immediatel y to rule out ectopic which could be life threatenin g. IUD will also need to be removed and this could cause miscarriag e. Patient also informed that in the event her strings are absent or embedded at the time of removal she may need to have the IUD surgically removed.RT C on days 1-5 of next period for insertion Time spent in visit is a total of 20 mins with at least 50% of visit consisting of counseling and review of plan of care. BP precaution s discussed. Encouraged to log BP at home and f/u with PCP. ED precaution s discussed [id number] FELICITY FARNSWORTH MD Barker [address] [address] 05/24/2023 16:41:10 05/24/2023 17:31:53 Complete miscarriage [id number] O03.9 - bleeding 05/12-04/26 7, now resolved- US in ER demonstrat ed 6 week with no FHR per patient- HCG downtrendi ng, repeat drawn today- discussed likely spontaneou s miscarriag e, no further testing required to find cause- continue to trend hCG to negative prior to attempting conception again Chronic hy pertension complicating AND/OR reason for care during [id number] O16.9 - currently on amlodipine and carvedilol - recommend discussing switching to either labetalol or procardia with PCP prior to conceiving [id number] IDRIS Bradshaw Barker [address],[place] [address] 10/11/2023 15:38:54 10/12/2023 09:24:06 Gynecologic examination [id number] Z01.419 Z11.51 WWEpap updatedgc/ ct/trich testing added to paproutine labs UTD/PCP Take Calcium with Vitamin D daily if not receiving in daily diet.It is strongly advised to have an annual flu shot and up can obtain at most pharmacies . If you have not had a TDap shot in the last 10 years you should obtain one as well. Discussed with patient & provided with informatio n regarding Gardisil vaccine to prevent the 4 strains for HPV that cause cervical cancer if under age 26. Encourage safe sexual practices, to use condoms and limit partners if not already in a monogamous relationsh ip.Do monthly self breast exams. Engage in daily exercise of low impact aerobic exercise 45-60 minutes 4-5 times weekly. Avoid tobacco and illicit drugs. This lifestyle behavior pattern will lead to less health conditions and longer life span. If BMI greater than 25 dietary consult advised. Patient received above instructio ns, and questions have been answered. If you have any questions please call or respond to this email. Patient was made aware of the patient portal and may obtain a paper copy of today's plan if desired. [facility] management [id number] Z30.9 Discussed all control options in great detail. Pt would like to start POP. She is aware of the risks and benefits. She has contraindi cations to use of OCP or other estrogen containing hormonal therapy. Pt will start her pills on the first day following the start of her period. She is aware it is not effective for control the first month. She is also aware of the importance of taking at the same time every day. Encouraged use of condoms as the pill does not protect against STD's. Will return in 3 months for med check. Consent was read and signed. Pt verbalized understand ing. Health Concerns Section Related Observation LastModified by Organization Detai ls LastModified Time None Recorded Concern Status LastModified by Organization Details LastModified Time None Recorded Advance Directives Directive None Recorded Payers Encounter Date Sequence Insurance Name Policy Number Policy Mckay Covered Member ID Mckay Member ID Guarantor Name 10/07/2022 1 [place] [facility] Pat Andres [id number] Pat Andres 11/19/2022 1 [place] [facility] Pat Andres [id number] Pat Andres 01/11/2023 1 [place] [facility] Pat Andres [id number] Pat Andres 05/24/2023 1 [place] [facility] Pat Andres [id number] Pat Andres 10/11/2023 1 [place] [facility] Pat Andres [id number] Pat Andres Notes Date Note Type Note Provider Name and Address Organization Details Recorded Time 10/07/2022 text/html Annual GYNReport ed bypatient.Menstrual cycle:Normal menses Urinary symptoms:No hematuria; No incontinence Vulva:No genital lesion Vagina:Normal vaginal discharge Breast:No breast pain; No breast lump; No nipple discharge Current Contraception:Condom s Sexual complaints:No sexual complaints; No pain during intercourse; Normal libido Menopausal Symptoms:No menopausal symptoms; Normal vaginal lubrication Psychological symptoms:No depression; No anxiety; No PMDD Preventive measures:Encourage self breast examination; Encourage regular exercise; Encourage no tobacco use; Encourage regular mammograms starting age 40 IDRIS Bradshaw [address], [place], [address], [facility] 10/07/2022 15:44:03 11/19/2022 text/html 37yopresents for evaluation of urinary urgency, frequency, and burningsymptoms started 1 day agofeels similar to when she had a UTI last monthSA with steady male partner, used a new lubrication yesterday with ICLMP : 11/11/22seen by PCP for HTN on wednesday, increased BP med, has been keeping a log at home IDRIS Bradshaw [address], [place], [address], [facility] 11/19/2022 15:08:13 01/11/2023 text/html 37yopresents for med checkstopped slynd due to nausea, wants to discuss the IUD insteadtaking BP meds as prescribed, logging BP at home IDRIS Bradshaw [address], [place], [address], [facility] 01/11/2023 17:19:43 05/24/2023 text/html Presents today t o follow up miscarriage. She was seen in the ER on 05/12 for heavy bleeding and cramping, LMP 03/12/. 9 weeks by LMP. She had started having spotting on 05/07, no inciting event. Blood work done at ER, US demonstrated 6 week fetus with no FHR. Diagnosed with incomplete AB. She continued to have bleeding through 05/21, now resolved. No pain. HcG has been downtrending, repeat drawn today prior to appointment FELICITY FARNSWORTH MD [address], [place], [address], [facility] 05/24/2023 17:30:02 10/11/2023 text/html Annual GYNReport ed bypatient.Menstrual cycle:Normal menses Urinary symptoms:No hematuria; No incontinence Vulva:No genital lesion Vagina:Normal vaginal discharge Breast:No breast pain; No breast lump; No nipple discharge Current Contraception:Condom s Sexual complaints:No sexual complaints; No pain during intercourse; Normal libido Menopausal Symptoms:No menopausal symptoms; Normal vaginal lubrication Psychological symptoms:No depression; No anxiety; No PMDD Preventive measures:Encourage self breast examination; Encourage regular exercise; Encourage no tobacco use; Encourage regular mammograms starting age 40Notes:WWElast pap 09/2022 - nilm, HPV (+)condoms for BC, wants to restart a pillhas HTN, on amlodipine Jazlyn Sewell, WHPILO [address], [place], [address], [place] [facility] 10/12/2023 09:20:14 OBGyn Episode Ob Episode Information Episode Created Date Number of Fetuses Patient Bloodtype Patient rh Status Prepregnancy Weight lbs Domestic Partner Domestic Partner Phone Father Name Master Planner Status 10/08/19 23 1 CLOSED Fetus Data First Name Last Name Admitted to NICU Weight (g) Sex Living Outcome Pediatric Complications Fetus ID Race Codes Race Delivery Type F Full Term [id number] Vaginal Delivery Dennis Calculation Initial Dennis Date Initial Exam Date Initial Exam Provider Initial Ultrasound Date Last Menstrual Period Date Ultra Sound Weeks Gestation 0 Eighteen To Twenty Week Dennis Update Ultra Sound Date Fundal Height At Umbil Quickening Date Ultra Sound Latest Weeks Gestation Final Dennis Confirmed By Final Dennis Confirmed Date Final Dennis Date Ultra Sound Latest Days Gestation 0 0 Menstrual History Last Menstrual Date Menses Monthly On Bcp Conception Prior Menses Frequency Hcg Plus Date Menarche Onset Age Delivery Information Delivery Date Delivery Type Labor Anesthesia Weeks Gestation Incision Type Labor Labor Length Hrs Delivered By Post Complications Tubal Sterilization Discharge Date Comments 8 Discharge Information Feeding Method Contraceptive Method Maternal HG B and HCT Levels Ob Episode Information Episode Created Date Number of Fetuses Patient Bloodtype Patient rh Status Prepregnancy Weight lbs Domestic Partner Domestic Partner Phone Father Name Master Planner Status 10/11/19 24 1 CLOSED Fetus Data First Name Last Name Admitted to NICU Weight (g) Sex Living Outcome Pediatric Complications Fetus ID Race Codes Race Delivery Type 3175.14 4 M Full Term [id number] Vaginal Delivery Dennis Calculation Initial Dennis Date Initial Exam Date Initial Exam Provider Initial Ultrasound Date Last Menstrual Period Date Ultra Sound Weeks Gestation 0 Eighteen To Twenty Week Dennis Update Ultra Sound Date Fundal Height At Umbil Quickening Date Ultra Sound Latest Weeks Gestation Final Dennis Confirmed By Final Dennis Confirmed Date Final Dennis Date Ultra Sound Latest Days Gestation 0 0 Menstrual History Last Menstrual Date Menses Monthly On Bcp Conception Prior Menses Frequency Hcg Plus Date Menarche Onset Age Delivery Information Delivery Date Delivery Type Labor Anesthesia Weeks Gestation Incision Type Labor Labor Length Hrs Delivered By Post Complications Tubal Sterilization Discharge Date Comments 1 Discharge Information Feeding Method Contraceptive Method Maternal HG B and HCT Levels Ob Episode Information Episode Created Date Number of Fetuses Patient Bloodtype Patient rh Status Prepregnancy Weight lbs Domestic Partner Domestic Partner Phone Father Name Master Planner Status 05/14/20 23 1 CLOSED Fetus Data First Name Last Name Admitted to NICU Weight (g) Sex Living Outcome Pediatric Complications Fetus ID Race Codes Race Delivery Type , Spontane ous [id number] Dennis Calculation Initial Dennis Date Initial Exam Date Initial Exam Provider Initial Ultrasound Date Last Menstrual Period Date Ultra Sound Weeks Gestation 0 Eighteen To Twenty Week Dennis Update Ultra Sound Date Fundal Height At Umbil Quickening Date Ultra Sound Latest Weeks Gestation Final Dennis Confirmed By Final Dennis Confirmed Date Final Dennis Date Ultra Sound Latest Days Gestation 0 0 Menstrual History Last Menstrual Date Menses Monthly On Bcp Conception Prior Menses Frequency Hcg Plus Date Menarche Onset Age Delivery Information Delivery Date Delivery Type Labor Anesthesia Weeks Gestation Incision Type Labor Labor Length Hrs Delivered By Post Complications Tubal Sterilization Discharge Date Comments 3 Discharge Information Feeding Method Contraceptive Method Maternal HG B and HCT Levels Ob Episode Information Episode Created Date Number of Fetuses Patient Bloodtype Patient rh Status Prepregnancy Weight lbs Domestic Partner Domestic Partner Phone Father Name Master Planner Status 10/11/19 24 1 CLOSED Fetus Data First Name Last Name Admitted to NICU Weight (g) Sex Living Outcome Pediatric Complications Fetus ID Race Codes Race Delivery Type 3175.14 4 M Full Term [id number] Vaginal Delivery Dennis Calculation Initial Dennis Date Initial Exam Date Initial Exam Provider Initial Ultrasound Date Last Menstrual Period Date Ultra Sound Weeks Gestation 0 Eighteen To Twenty Week Dennis Update Ultra Sound Date Fundal Height At Umbil Quickening Date Ultra Sound Latest Weeks Gestation Final Dennis Confirmed By Final Dennis Confirmed Date Final Dennis Date Ultra Sound Latest Days Gestation 0 0 Menstrual History Last Menstrual Date Menses Monthly On Bcp Conception Prior Menses Frequency Hcg Plus Date Menarche Onset Age Delivery Information Delivery Date Delivery Type Labor Anesthesia Weeks Gestation Incision Type Labor Labor Length Hrs Delivered By Post Complications Tubal Sterilization Discharge Date Comments 2 Discharge Information Feeding Method Contraceptive Method Maternal HG B and HCT Levels
--- OUTSIDE RECORDS SUMMARY | 2024-10-14 20:09 | XMS_ITS ---
Author Organization [facility] Address [address] [place] [address] Care Team Providers Care Blacksmith Assistant Name Role Phone Mark Anthony Posada Judy [phone] REASON FOR VISIT [facility], interested in peptide therapy, no prior use of GLP-1 medications, reports gaining 30 lbs following BBL surgery 2 years ago, Desired weight loss: 20-25lbs, -3.6lbs , -3.6lbssince starting dose, No history MTC or MEN2., Concerned about future DM and OA Medications Medication SIG (Take, Route, Frequency, Duration) Notes Start Date End Date Status Multi Vitamin - 1 tablet Orally Once a day Active Probiotic - as directed Orally Active Losartan Potassium 50 MG 1 tablet Orally Once a day Active Vitamin D 50 MCG (1999) 1 tablet Orally Once a day Active Vital Signs Height 66.3 in 05/15/2024 Weight 208.2 lbs 05/15/2024 BMI 33.3 kg/m2 05/15/2024 Encounters Encounter Location Date Provider Diagnosis [facility] [place] ([address]) [address] SANCHEZ [address] [address] 05/15/2024 Mark Anthony Posada Chronic fatigue, unspecified R53.82 ; Abnormal weight gain R63.5 ; Other fatigue R53.83 and Other malaise R53.81 Assessments Encounter Date Diagnosis (ICD Code) Assessment Notes Treatment Notes Treatment Clinical Notes Section Notes 05/15/2024 Chronic fatigue, unspecified (ICD-10 - R53.82) 05/15/2024 Abnormal weight gain (ICD-10 - R63.5) 05/15/2024 Other fatigue (ICD-10 - R53.83) 05/15/2024 Other malaise (ICD-10 - R53.81) Plan Of Treatment Next Appt Details Follow Up: 1 Week, Reason: G LP-1 Agonist Administration Procedure Notes * Category Sub-Category Detail Notes [facility] tirzepatide Indication: weig ht loss Concentration: 10 mg/mL Volume Administered: 0.1 mL Dose Administered: 1 mg Route: SQ Location: Left abdomen Frequency: weekly Lot Number/Expiration: Medication Source: Nutraceutical Comp ounding Adverse Reaction: None Progress Notes * Garo ANDRESB: 7 (39 yo F)Acc No.[id number]:05/15/2024 Weight Loss Patient: Saleem WALSHessa Provider: iLset Posada MD :1985 A ge:39 Y S ex:Female Date:05/15/2024 Address:[address] [place] [address] Subjective: * Chief Complaints: * 1 . [facility], interested in peptide therapy, no prior use of GLP- 1 medications, reports gaining 30 lbs following BBL surgery 2 years ago. 2. Desired weight loss: 20-25lbs, -3.6lbs , -3.6lbs since starting dose. 3. No history MTC or MEN2.. 4. [...] Low vitamin D noted. * Medical History: * Medications: T aking Probiotic - Tablet Chewable as directed Orally , Taking Multi Vitamin - Tablet 1 tablet Orally Once a day , Taking Vitamin D 50 MCG (2000 UT) Tablet 1 tablet Orally Once a day , Taking Losartan Potassium 50 MG Tablet 1 tablet Orally Once a day Objective: * Vitals: H t: 66.3 in, Wt: 208.2 lbs, BMI:33.3Index. Assessment: * Assessment: 1. A bnormal weight [...] mg R oute S Q L ocation L eft abdomen F requency w eekly L ot Number/Expiration 1 M edication Source A H Nutraceutical Compounding A dverse Reaction N one * Follow Up: 1 Week (Reason: GLP-1 Agonist Administration) * Billing Information: * Visit Code: * Procedure Codes: 05352 [facility] Consultation (tirzepatide). * Electronic signature of Benny Posada MD, FAAAAI on 10/14/2024 at 08:08 PM CDT Sign off status: Pending * Provider: Liset Posada MD Date: 1 Generated for Printi ng/Faxing/eTransmitting on: 0 10/14/2024 08:08 PM CDT History [...]
--- OUTSIDE RECORDS SUMMARY | 2024-10-14 20:09 | XMS_ITS ---
Author Organization [facility] Address [address] [place] [address] Care Team Providers Care Relocation Coordinator Name Role Phone AlbinoMark Anthony [phone] REASON FOR VISIT [facility], interested in peptide therapy, no prior use of GLP-1 medications, reports gaining 30 lbs following BBL surgery 2 years ago, Desired weight loss: 20-25lbs, -3.6lbs , -3.6lbssince starting dose, No history MTC or MEN2., Concerned about future DM and OA Encounters Encounter Location Date Provider Diagnosis [facility] [place] ([address]) [address]HEZ [address] [address] 05/22/2024 Mark Anthony Posada Chronic fatigue, unspecified R53.82 ; Abnormal weight gain R63.5 ; Other fatigue R53.83 and Other malaise R53.81 Assessments Encounter Date Diagnosis (ICD Code) Assessment Notes Treatment Notes Treatment Clinical Notes Section Notes 05/22/2024 Chronic fatigue, unspecified (ICD-10 - R53.82) 05/22/2024 Abnormal weight gain (ICD-10 - R63.5) 05/22/2024 Other fatigue (ICD-10 - R53.83) 05/22/2024 Other malaise (ICD-10 - R53.81) Plan Of [...] ounding Adverse Reaction: None Progress Notes * Bob ANDRESaDOB: 7 (39 yo F)Acc No.[id number]:05/22/2024 Weight Loss Patient: Pat WALSH Provider: Liset Posada MD :1985 A ge:39 Y S ex:Female Date:05/22/2024 Address:[address] [place] [address] Subjective: * Chief Complaints: * 1 . [...] Low vitamin D noted. * Medical History: Objective: * Vitals: Assessment: * Assessment: 1. A bnormal weight [...] Information: * Visit Code: * Procedure Codes: 25939 [facility] Initial Consultation (tirzepatide). * Electronic signature of Benny Posada MD, FAAAAI on 10/14/2024 at 08:09 PM CDT Sign off status: Pending * Provider: Liset Posada MD Date: 1 Generated for Printi ng/Faxing/eTransmitting on: 0 10/14/2024 08:09 PM CDT History and Physical Notes * [...]
--- OUTSIDE RECORDS SUMMARY | 2024-10-14 20:09 | XMS_ITS | Patient Health Record ---
Author Organization [facility] Address [address] [place] [id number] Care Team Providers Care Management Trainee Marketing Name Role Phone Mark Anthony Posada Unavailable [phone] Results Component Value Reference Range Notes HRT Female Pre Pellet Reviewed date:09/04/2024 12:19:10 PM Interpretation: Performing Lab:[facility] [address] [id number], Phone - [phone], Director - Jacky Notes/Report: Glucose 87 70-99 mg/dL BUN 15 6-20 mg/dL Creatinine 0.62 0.57-1.00 mg/dL eGFR 118 >59 mL/min/1.73 BUN/Creatinine Ratio 24 9-23 Sodium 139 134-144 mmol/L Potassium 4.2 3.5-5.2 mmol/L Chloride 102 96-106 mmol/L Carbon Dioxide, Total 22 20-29 mmol/L Calcium 9.2 8.7-10.2 mg/dL Protein, Total 7.3 6.0-8.5 g/dL Albumin 4.7 3.9-4.9 g/dL Globulin, Total 2.6 1.5-4.5 g/dL Bilirubin, Total 0.5 0.0-1.2 mg/dL Alkaline Phosphatase 91 44-121 IU/L AST (SGOT) 25 0-40 IU/L ALT (SGPT) 50 0-32 IU/L Vitamin B12 339 285-9124 pg/mL Vitamin D, 25-Hydroxy 29.1 30.0-100.0 ng/mL Vitamin D deficiency has been defined by the [place] of Medicine and an Endocrine Society practice guideline as a level of serum 25-OH vitamin D less than 20 ng/mL (1,2). The Endocrine Society went on to further define vitamin D insufficiency as a level between 21 and 29 ng/mL (2). 1. IOM ([place] of Medicine). 2010. Dietary reference intakes for calcium and D. [place]: The National Academies Press. 2. Stephanie MF, Ana POWELL, Louisa DUONG, et al. Evaluation, treatment, and prevention of vitamin D deficiency: an Endocrine Society clinical practice guideline. JCEM. 2010; 96(7):1911-30. TSH 3.940 0.450-4.500 uIU/mL Triiodothyronine (T3), Free 3.3 2.0-4.4 pg/mL T4,Free(Direct) 1.17 0.82-1.77 ng/dL Thyroid Peroxidase (TPO) Ab <9 0-34 IU/mL Testosterone 17 8-60 ng/dL FSH 2.4 Adult Female Range Follicular phase 3.5 - 12.5 Ovulation phase 4.7 - 21.5 Luteal phase 1.7 - 7.7 Postmenopausal 25.8 - 134.8 Estradiol 43.6 Adult Female Range Follicular phase 12.5 - 166.0 Ovulation phase 85.8 - 498.0 Luteal phase 43.8 - 211.0 Postmenopausal <6.0 - 54.7 1st trimester 215.0 - >4300.0 Parvin ECLIA methodology WBC 7.6 3.4-10.8 x10E3/uL RBC 4.27 3.77-5.28 x10E6/uL Hemoglobin 12.8 11.1-15.9 g/dL Hematocrit 39.8 34.0-46.6 % MCV 93 79-97 fL MCH 30.0 26.6-33.0 pg MCHC 32.2 31.5-35.7 g/dL RDW 12.7 11.7-15.4 % Platelets 376 150-450 x10E3/uL Neutrophils 58 Not Estab. % Lymphs 34 Not Estab. % Monocytes 5 Not Estab. % Eos 2 Not Estab. % Basos 1 Not Estab. % Neutrophils (Absolute) 4.4 1.4-7.0 x10E3/uL Lymphs (Absolute) 2.5 0.7-3.1 x10E3/uL Monocytes(Absolute) 0.4 0.1-0.9 x10E3/uL Eos (Absolute) 0.2 0.0-0.4 x10E3/uL Baso (Absolute) 0.1 0.0-0.2 x10E3/uL Immature Granulocytes 0 Not Estab. % Immature Grans (Abs) 0.0 0.0-0.1 x10E3/uL Reason For Referral No Information Medications Medication SIG (Take, Route, Frequency, Duration) Notes Start Date End Date Status Multi Vitamin - 1 tablet Orally Once a day Active Probiotic - as directed Orally Active Losartan Potassium 50 MG 1 tablet Orally Once a day Active Vitamin D 50 MCG (1999) 1 tablet Orally Once a day Active Problems Problem Type SNOMED Code ICD Code Onset Dates Problem Status W/U Status Risk Notes Problem Chronic fatigue syndrome (disorder) (03005887) Chronic fatigue, unspecified (R53.82) Active confirmed Vital Signs Temperature 98.2 degrees Fahrenheit 05/08/2024 Respiratory Rate 18 /min 05/08/2024 Oximetry 97 % 05/08/2024 Blood pressure diastolic 91 mm Hg 05/08/2024 Height 66.3 in 05/15/2024 Blood pressure systolic 137 mm Hg 05/08/2024 Weight 208.2 lbs 05/15/2024 BMI 33.3 kg/m2 05/15/2024 Encounters Encounter Location Date Provider Diagnosis [facility] ([address]) 2022 ANN-MARIE MORGAN [address] [place] [phone] 05/01/2024 Mark Anthony Posada Chronic fatigue, unspecified R53.82 ; Abnormal weight gain R63.5 ; Other fatigue R53.83 and Other malaise R53.81 [facility] ([address]) 2022 ANN-MARIE MORGAN [address] [place] [phone] 05/08/2024 Mark Anthony Posada Chronic fatigue, unspecified R53.82 ; Abnormal weight gain R63.5 ; Other fatigue R53.83 and Other malaise R53.81 [facility] ([address]) 2022 ANN-MARIE MORGAN [address] [place] [phone] 05/15/2024 Mark Anthony Posada Chronic fatigue, unspecified R53.82 ; Abnormal weight gain R63.5 ; Other fatigue R53.83 and Other malaise R53.81 [facility] ([address]) 2022 ANN-MARIE SANCHEZ [address] [place] [address] 04/19/2024 Mark Anthony Posada Assessments Encounter Date Diagnosis (ICD Code) Assessment Notes Treatment Notes Treatment Clinical Notes Section Notes 05/01/2024 Chronic fatigue, unspecified (ICD-10 - R53.82) 05/01/2024 Abnormal weight gain (ICD-10 - R63.5) 05/08/2024 Chronic fatigue, unspecified (ICD-10 - R53.82) 05/08/2024 Abnormal weight gain (ICD-10 - R63.5) 05/15/2024 Chronic fatigue, unspecified (ICD-10 - R53.82) 05/15/2024 Abnormal weight gain (ICD-10 - R63.5) 05/15/2024 Other fatigue (ICD-10 - R53.83) 05/08/2024 Other fatigue (ICD-10 - R53.83) 05/01/2024 Other fatigue (ICD-10 - R53.83) 05/08/2024 Other malaise (ICD-10 - R53.81) 05/15/2024 Other malaise (ICD-10 - R53.81) 05/01/2024 Other malaise (ICD-10 - R53.81) Plan Of Treatment No Information Medical (General) History Medical History History ICD Code hypertension s/p cholecystectomy vitamin D deficiency Surgical History Surgery Date(Month/Year) cholecystectomy 05/2023
--- OUTSIDE RECORDS SUMMARY | 2024-10-14 20:09 | XMS_ITS | CONTINUITY OF CARE DOCUMENT ---
Author Name piyushjoana rachel Address Unknown Organization [facility] Address [address] [place] [address] Phone [phone] Care Team Providers Care Integrated Circuit Fabricator Name Role Phone Pranay Mazariegos MD Unavailable LACI NGUYỄN MD Unavailable [phone] LACI NGUYỄN MD Unavailable [phone] PROBLEMS Condition Status Date Provider Notes Cardiology examination active Pranay le MD Elevated blood pressure active Pranay Funes ra, MD ENCOUNTERS Date Type Provider Location Encounter Diag nosis - In-person encounter Office Visit Pranay Mazariegos MD [place] [facility] Cardiology examinationElevated blood pressure VITAL SIGNS Date Observation Value Provider Body Mass Index (Ratio) 30.56 kg/m2 Ngoc Mazariegos MD blood pressure, diastolic 86 mm[Hg] Manuela nkLogleonel blood pressure, systolic 137 mm[Hg] Marlene Mansfieldogleonel blood pressure, diastolic 86 mm[Hg] Dolores Hernandez blood pressure, systolic 137 mm[Hg] Jasper Hernandez oxygen saturation, oximetry 99 % Lolis Hernandez pulse rate 77 /min Lolis stahl respiratory rate E&M 16 /min Chana Hernandez height E&M 68 [in_i] Lolis stahl weight E&M 201 [lb_av] Lolis Alamo d blood pressure, cuff size large Dolores Hernandez RESULTS Date Observation Value Provider Reference Range Interpretation Location 4 basophils as percent of blood leukocytes 0.7 % [facility] Normal 4 eosinophils as percent of blood leukocytes 2.8 % [facility] Normal 4 monocyte count, blood 5.3 % [facility] Normal 4 lymphocyte count, blood 31.0 % [facility] Normal 4 neutrophils as percent of blood leukocytes 60.2 % [facility] Normal 4 basophils, absolute, manual 53 cells/mcL [facility] 0-200 Normal 4 eosinophils, absolute, manual 213 cells/mcL [facility] 15-500 Normal 4 monocytes, absolute, manual 403 cells/mcL [facility] 200-950 Normal 4 lymphocytes, absolute 2356 CELLS/UL [facility] 850-3900 Normal 4 Absolute Neutrophil count 4575 cells/mcL [facility] 0970-4354 Normal 4 mean platelet volume 9.4 fL [facility] 7.5-12.5 Normal 4 platelet count 365 THOUSAND/UL [facility] 140-400 Normal 4 red blood cell distribution width 12.3 % [facility] 11.0-15.0 Normal 4 mean corpuscular hemoglobin concentration, RBC 32.7 G/DL [facility] 32.0-36.0 Normal 4 mean corpuscular hemoglobin, RBC 28.4 pg [facility] 27.0-33.0 Normal 4 mean corpuscular volume, RBC 87.1 fL [facility] 80.0-100.0 Normal 4 hematocrit, blood 39.8 % [facility] 35.0-45.0 Normal 4 hemoglobin electrophoresis, blood 13.0 [facility] 11.7-15.5 Normal 4 erythrocyte (RBC) count 4.57 MILLION/UL [facility] 3.80-5.10 Normal 4 leukocyte (white blood cells) count, blood 7.6 THOUSAND/UL [facility] 3.8-10.8 Normal 4 calcium, serum 9.3 mg/dL [facility] 8.6-10.2 Normal 4 carbon dioxide, venous blood 26 mmol/L [facility] 20-32 Normal 4 chloride, serum 103 mmol/L [facility] 98-110 Normal 4 potassium, serum 3.9 mmol/L [facility] 3.5-5.3 Normal 4 sodium, serum 137 mmol/L [facility] 135-146 Normal 4 urea nitrogen/creatini ne ratio, serum 26 (calc) [facility] 6-22 High 4 creatinine, serum 0.46 mg/dL [facility] 0.50-0.97 Low 4 urea nitrogen, blood 12 mg/dL [facility] 7-25 Normal 4 blood glucose, random 92 mg/dL [facility] 65-99 Normal 4 C-reactive protein, by highly sensitive test 6.2 mg/L [facility] <1.0 High 4 LDL Size 219.3 Angstrom [facility] >222.9 Low 4 LDL particle concentration (lipoprotein panel), risk categories correspond to NCEP categories for LDL cholesterol (on a percentile equivalent basis) 1160 nmol/L [facility] <1138 High 4 cholesterol, non-HDL, total 87 MG/DL (CALC) [facility] <130 4 cholesterol/HDL ratio, serum, percent 2.5 calc [facility] <3.6 4 LDL cholesterol, serum 70 MG/DL (CALC) [facility] <100 4 triglyceride, serum, fasting 93 mg/dL [facility] <150 4 HDL cholesterol, serum 60 mg/dL [facility] >49 4 cholesterol, serum 147 mg/dL [facility] <200 HISTORY OF MEDICATION USE Medication Status Instructions Dates Provider Indications Com ments amlodipine 5 mg tablet active TAKE 1 TABLET BY MOUTH EVERY DAY Lolis Hernandez SOCIAL HISTORY Date Observation Value Provider social history reviewed E&M revi ewed - no changes required Pranay Mazariegos MD social history E&M S moking History: Liset valdivia has never smoked. Pranay Mazariegos MD smoking status Never smoker Lolis Bonilla and INSURANCE PROVIDERS Payer name Policy type / Coverage type [place] red libertarian ID [facility] Medicaid 4 [id number] ADVANCE DIRECTIVES Name Date DISCUSSED - NO DECISION MADE TREATMENT PLAN Date Name Performer [id number],C,W ill check echo, routine stress, ambulatory BP, and labs for further evaluation. Pranay Mazariegos MD [id number],C, O rders: E KG (CPT-45432) 9 9205 HIGH 60-74 min (CPT-20003) C omplete Echo (CPT-93739) A mbulatory BP (CPT-41217) B ASIC METABOLIC PANEL W/EGFR (85839) C BC (INCLUDES DIFF/PLT) (6399) T SH, 3RD GENERATION W/REFLEX TO FT4 (55920) S tress Routine (CPT-83427) C ardioIQ Advanced Lipid Panel with Inflammation ([facility]) (49836) Pranay Mazariegos MD Cardiology:Will chec k echo, routine stress, ambulatory BP, and labs for further evaluation. Pranay Mazariegos MD Cardiology: O rders: E KG (CPT-92232) 9 9205 HIGH 60-74 min (CPT-64576) C omplete Echo (CPT-19027) A mbulatory BP (CPT-78305) B ASIC METABOLIC PANEL W/EGFR (12445) C BC (INCLUDES DIFF/PLT) (6399) T SH, 3RD GENERATION W/REFLEX TO FT4 (23289) S tress Routine (CPT-91205) C ardioIQ Advanced Lipid Panel with Inflammation ([facility]) (71376) Pranay Mazariegos MD Date Name CardioIQ Advanced Li pid Panel with Inflammation ([facility]) Stress Routine TSH, 3RD GENERATION W/REFLEX TO FT4 CBC (INCLUDES DIFF/P LT) BASIC METABOLIC PANE L W/EGFR Ambulatory BP Complete Echo HISTORY OF PROCEDURES Procedure Date Procedure Name Provider Procedure Notes S tatus EKG Pranay Mazariegos MD complet ed
[2024-10-14 20:12] VITALS: BP 183/109; PULSE 75; PULSE 84; RESP 14; TEMP 37.2; O2SAT 100
[2024-10-14 20:23] LABS: Basophils Absolute Auto 0.1 K/mm3 (0.0-0.1); Basophils Percent Auto 0.5 % (0.2-1.2); Eosinophils Absolute Auto 0.2 K/mm3 (0-0.3); Eosinophils Percent Auto 2.2 % (0-4.4); Hematocrit 41.8 % (37.0-47.0); Hemoglobin 13.9 g/dL (12.0-15.0); Immature Granulocyte Absolute 0.03 K/mm3 (0.00-0.031); Immature Granulocyte Percent A 0.3 % (0-0.5); Lymphocytes Absolute Auto 3.41 K/mm3 (0.9-3.2); Lymphocytes Percent Auto 32.1 % (18.3-44.2); Mean Corpuscular HGB Conc 33.3 g/dl (32-36); Mean Corpuscular Hemoglobin 30.8 pg (26-34); Mean Corpuscular Volume 92.7 fl (80-100); Mean Platelet Volume 9.1 fl (7.4-10.4); Monocytes Absolute Auto 0.6 K/mm3 (0.1-0.6); Monocytes Percent Auto 5.9 % (2.6-8.5); Neutrophils Absolute Auto 6.3 K/mm3 (1.3-6.7); Platelet Count Result 368 k/mm3 (150-375); Red Blood Count 4.51 M/mm3 (4.2-5.4); Red Cell Distribution Width 12.1 % (11.5-14.5); White Blood Count 10.6 K/mm3 (4.5-10.0)
[2024-10-14 20:31] VITALS: BP 160/105; PULSE 78; RESP 15; O2SAT 100
[2024-10-14 20:33] LABS: Alanine Aminotransferase 65 U/L (6-35); Albumin Level 5.2 g/dL (3.5-5.1); Alkaline Phosphatase 89 U/L (38-126); Anion Gap 14 mmol/L (4-12); Aspartate Amino Transferase 35 U/L (14-36); Bilirubin,Total 0.6 mg/dL (0.2-1.3); Blood Urea Nitrogen 15 mg/dL (7-17); Carbon Dioxide 24 mmol/L (22-30); Chloride 101 mmol/L (98-107); Estimated CRCL calculation 119 ml/min; Estimated Glomerular Filt Rate > 60; Glucose 98 mg/dL (65-110); Lipase 203 U/L (23-300); Potassium 3.6 mmol/L (3.4-5.0); Sodium 139 mmol/L (137-145)
[2024-10-14 20:35] LABS: INR 0.9; Prothrombin Time 12.2 Seconds (11.1-14.7)
--- OUTSIDE RECORDS SUMMARY | 2024-10-14 20:39 | XMS_ITS | CONTINUITY OF CARE DOCUMENT ---
Author Name piyushjoana rachel Address Unknown Organization [facility] Address [address] [place] [address] Phone [phone] Care Team Providers Care Dog Barber Name Role Phone Pranay Mazariegos MD Unavailable LACI NGUYỄN MD Unavailable [phone] LACI NGUYỄN MD Unavailable [phone] PROBLEMS Condition Status Date Provider Notes Cardiology examination active Pranay le MD Elevated blood pressure active Pranay Funes ra, MD ENCOUNTERS Date Type Provider Location Encounter Diag nosis - In-person encounter Office Visit Pranay Mazariegos MD [place] [facility] Cardiology examinationElevated blood pressure VITAL SIGNS [...] 4 Absolute Neutrophil count 4575 cells/mcL [facility] [id number] Normal 4 mean platelet volume 9.4 fL [...] Payer name Policy type / Coverage type [place] red republican ID [facility] Medicaid 4 [id number] ADVANCE DIRECTIVES Name Date DISCUSSED - NO DECISION MADE TREATMENT PLAN Date Name Performer [id number],C,W ill check echo, routine stress, ambulatory BP, and labs for further evaluation. Pranay Mazariegos MD [id number],C, O rders: E KG (CPT-10627) 9 9205 HIGH 60-74 min (CPT-67574) C omplete Echo (CPT-68794) A mbulatory BP (CPT-77279) B ASIC METABOLIC PANEL W/EGFR (22138) C BC (INCLUDES DIFF/PLT) (6399) T SH, 3RD GENERATION W/REFLEX TO FT4 (30205) S tress Routine (CPT-59416) C ardioIQ Advanced Lipid Panel with Inflammation ([facility]) (20859) Pranay Mazariegos MD Cardiology:Will chec k echo, routine stress, ambulatory BP, and labs for further evaluation. Pranay Mazariegos MD Cardiology: O rders: E KG (CPT-07554) 9 9205 HIGH 60-74 min (CPT-20057) C omplete Echo (CPT-20520) A mbulatory BP (CPT-50317) B ASIC METABOLIC PANEL W/EGFR (47876) C BC (INCLUDES DIFF/PLT) (6399) T SH, 3RD GENERATION W/REFLEX TO FT4 (84711) S tress Routine (CPT-66290) C ardioIQ Advanced Lipid Panel with Inflammation ([facility]) (75485) Pranay Mazariegos MD Date Name CardioIQ Advanced Li pid Panel with Inflammation ([facility]) Stress Routine TSH, 3RD GENERATION W/REFLEX TO FT4 CBC (INCLUDES DIFF/P LT) BASIC METABOLIC PANE L W/EGFR Ambulatory BP Complete Echo HISTORY OF PROCEDURES Procedure Date Procedure Name Provider Procedure Notes S tatus EKG Pranay Mazariegos MD complet ed
[2024-10-14 20:44] LABS: Troponin I < 0.012 ng/mL (0.000-0.034)
[2024-10-14 20:45] VITALS: BP 151/87; PULSE 76; RESP 15; O2SAT 96
[2024-10-14] MEDS: BELLADONNA ALK/PHENOB ELIX 10 ML, MAG HYDROX/ALUMINUM HYD/SIMETH 30 ML, LIDOCAINE 2% VI... PO (21:39)
--- NOTE | 2024-10-14 21:59 | ED.GENADULT ---
HPI - General Adult General Chief complaint: Chest Pain Stated complaint: chest pain; arms feel weak Time Seen by Provider: 10/14/24 20:29 History of Present Illness HPI narrative: Patient 39-year-old female presents emergency department with chief complaint of chest pain. Patient reports that today she had some discomfort in her chest patient reports that felt like a heaviness tightness reports that she did eat some jalapeno chips before all this started patient reports that symptoms are not improved by anything Related Data Home Medications ?Medication ?Instructions ?Recorded ?Confirmed ?Last Taken ?Type losartan 50 mg tablet 50 mg PO BID 10/14/24 10/14/24 Unknown History Allergies Allergy/AdvReac Type Severity Reaction Status Date / Time No Known Allergies Allergy Verified 06/22/22 13:20 Review of Systems Review of Systems: A 10 system review of systems was completed on the patient and is negative except for what is stated in the HPI. Nursing and ancillary documentation was reviewed. [facility] Past Medical History Medical History (Updated 10/15/24 @ 01:01 by Rashid Garibay MD) Hypertension Acute biliary pancreatitis (05/2022) Surgical History Surgical History (Updated 10/15/24 @ 00:52 by Christin Galdamez PA-C) History of breast augmentation History of abdominoplasty History of laparoscopic cholecystectomy (06/09/22) History of appendectomy Family History Family History Father Diabetes mellitus Social History Social History (Updated 10/15/24 @ 00:53 by Christin Galdamez PA-C) Social History: Surrogate medical decision maker: Code status: Full code. Smoking status: Never smoker Alcohol intake: never Substance use: never Substance use type: does not use Lack of Transportation: No Lack of Food: Never True Current Housing: I Have Housing Concerned About Future Housing: No Difficulty Paying Gas/Electric Bills: No Difficulty Paying for Meds: No Currently Unemployed: No Education: High School Diploma/GED Difficulty w/ Childcare or Family Care: No Living arrangements: with family Additional living arrangements comments: Lives in [place]. She has 4 children. 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 Spiritual care concerns: No Course Vital Signs Vital signs: Vital Signs Temperature 37.2 C 10/14/24 20:12 Pulse Rate 84 10/14/24 20:12 Respiratory Rate 14 10/14/24 20:12 Blood Pressure 183/109 H 10/14/24 20:12 Pulse Oximetry 100 10/14/24 20:12 Oxygen Delivery Room Air 10/14/24 20:12 Temperature 37.2 C 10/14/24 20:12 Pulse Rate 73 10/14/24 23:05 Respiratory Rate 16 10/14/24 23:05 Blood Pressure 135/94 H 10/14/24 23:05 Pulse Oximetry 98 10/14/24 23:05 Oxygen Delivery Room Air 10/14/24 20:12 Medical Decision Making Vital Signs Vital Signs: Vital Signs Temperature 37.2 C 10/14/24 20:12 Pulse Rate 84 10/14/24 20:12 Respiratory Rate 14 10/14/24 20:12 Blood Pressure 183/109 H 10/14/24 20:12 Pulse Oximetry 100 10/14/24 20:12 Oxygen Delivery Room Air 10/14/24 20:12 Temperature 37.2 C 10/14/24 20:12 Pulse Rate 73 10/14/24 23:05 Respiratory Rate 16 10/14/24 23:05 Blood Pressure 135/94 H 10/14/24 23:05 Pulse Oximetry 98 10/14/24 23:05 Oxygen Delivery Room Air 10/14/24 20:12 Lab Data 10/14/24 20:17 10/14/24 20:17 Labs: Lab Results 10/14/24 10/14/24 Range/Units 20:17 23:19 WBC 10.6 H (4.5-10.0) K/mm3 RBC 4.51 (4.2-5.4) M/mm3 Hgb 13.9 (12.0-15.0) g/dL Hct 41.8 (37.0-47.0) % MCV 92.7 (80-100) fl MCH 30.8 (26-34) pg MCHC 33.3 (32-36) g/dl RDW 12.1 (11.5-14.5) % Plt Count 368 (150-375) k/mm3 MPV 9.1 (7.4-10.4) fl Immature Gran % (Auto) 0.3 (0-0.5) % Neut % (Auto) 59.0 (45.5-73.1) % Lymph % (Auto) 32.1 (18.3-44.2) % Faulkner % (Auto) 5.9 (2.6-8.5) % Eos % (Auto) 2.2 (0-4.4) % Baso % (Auto) 0.5 (0.2-1.2) % Lymph # (Auto) 3.41 H (0.9-3.2) K/mm3 Faulkner # (Auto) 0.6 (0.1-0.6) K/mm3 Eos # (Auto) 0.2 (0-0.3) K/mm3 Baso # (Auto) 0.1 (0.0-0.1) K/mm3 Abs Immat Gran (auto) 0.03 (0.00-0.031) K/mm3 Absolute Neuts (auto) 6.3 (1.3-6.7) K/mm3 Absolute Nucleated RBC 0.000 (0.0-0.012) K/mm3 Nucleated RBC % 0.0 (0.0-0.2) % PT 12.2 (11.1-14.7) Seconds INR 0.9 APTT 24.0 (22.3-36.8) Seconds Sodium 139 (137-145) mmol/L Potassium 3.6 (3.4-5.0) mmol/L Chloride 101 (98-107) mmol/L Carbon Dioxide 24 (22-30) mmol/L Anion Gap 14 H (4-12) mmol/L BUN 15 D (7-17) mg/dL Creatinine 0.64 L (0.7-1.0) mg/dL Estim Creat Clear Calc 119 ml/min Estimated GFR > 60 (59 - ) Glucose 98 (65-110) mg/dL Calcium 10.0 (8.4-10.2) mg/dL Total Bilirubin 0.6 (0.2-1.3) mg/dL AST 35 (14-36) U/L ALT 65 H (6-35) U/L Alkaline Phosphatase 89 (38-126) U/L Troponin I < 0.012 0.171 H* D (0.000-0.034) ng/mL Total Protein 9.0 H (6.3-8.2) g/dL Albumin 5.2 H (3.5-5.1) g/dL Lipase 203 (23-300) U/L Discharge Plan Discharge Clinical Impression: Chest pain, Elevated troponin Patient Disposition: Still a Patient Condition: Stable Patient Language: Sami Prescriptions: No Action losartan 50 mg tablet 50 mg PO BID Follow-up/Referrals: Andriy Cancino MD [Primary Care Provider] - Time of Disposition: 01:01
[2024-10-14 22:36] VITALS: BP 140/94; PULSE 85; RESP 16; O2SAT 98
[2024-10-14 23:05] VITALS: BP 135/94; PULSE 73; RESP 16; O2SAT 98
--- NOTE | 2024-10-14 23:11 | ECG_ITS ---
Test Date: 2024-10-14 23:16:44 Measurements Intervals [place] Rate: 74 P: 19 [place]: 161 QRS: 0 QRSD: 84 T: 83 QT: 367 QTc: 410 Interpretive Statements SINUS RHYTHM MINIMAL VOLTAGE CRITERIA FOR LVH, CONSIDER NORMAL VARIANT [MEETS CRITERIA IN ONE OF: R(aVL), S(V1), R(V5), R(V5/V6)+S(V1)] POOR R-WAVE PROGRESSION T-WAVE ABNORMALITY IN THE HIGH LATERAL LEADS Compared to ECG 10/14/2024 20:19:51 T-WAVE ABNORMALITY IN THE HIGH LATERAL LEADS IS NOW PRESENT T WAVE ABNORMALITY IN THE INFEROLATERAL LEADS RESOLVED. Electronically Signed On 10-15-2024 13:28:32 CDT by Denzel Amezcua M.D.
--- NOTE | 2024-10-14 23:21 | PC.NURSE ---
patient states that tingling and numbness in bilateral hands have subsided.
--- NOTE | 2024-10-14 23:22 | PC.NURSE ---
this rn updated home medication patient.
[2024-10-15] VITALS (23 sets, daily range): BP systolic 106–167; BP diastolic 61–107; PULSE 74–102; RESP 14–22; TEMP 36.5–37.1; O2SAT 94–100; BMI 31.7
[2024-10-15 00:26] LABS: Troponin I 0.171 ng/mL (0.000-0.034)
--- NOTE | 2024-10-15 00:45 | PM.IMHP ---
H&P: HPI History of Present Illness Date/Time: 10/15/24 00:45 Chief Complaint: Chest pain. Narrative: This is a 39-year-old female with hypertension who presented to the emergency department via private vehicle with complaints of chest pain. Last evening she was in the shower when she suddenly developed a pressure/tightness sensation in her mid chest associated with mild shortness of breath. It resolved within approximately 10 minute without intervention. Later in the evening she was at the park with her toddler when her symptoms returned. She then decided to leave the park and while carrying her son to the car the chest discomfort intensified and was again associated with shortness of breath and nausea. After approximately 45 minutes the symptoms were still present and she came in for evaluation. She has never had similar symptoms and she denies family history of early-onset coronary artery disease. She does not take hormones and denies recent vaccinations. She also denies syncope, near syncope, sweats, pleuritic pain, nausea, vomiting, lower extremity edema, and calf pain. In the ED: Blood pressure on arrival was 183/109 in the remainder of her vital signs were stable. Chest x-ray was without acute findings. Labs were significant for WBC count of 10.6, ALT 65, total protein 9.0, albumin 5.2. Initial troponin was negative and EKG showed sinus rhythm with ST T-wave changes in V4 through V6 and T-wave inversions in III and AVF which normalized on EKG done with her 3 hour troponin however the troponin jumped to 0.171. She was given a GI cocktail without benefit. Once her troponin elevated she was given aspirin 324 mg and enoxaparin 1 milligram/kilogram. She is being admitted to the IMU in this setting for close monitoring and Cardiology consultation. Review of Systems Review of Systems: 12 systems were reviewed and are negative except for as per HPI. FOR[facility]LY [facility] Past Medical History Medical History Hypertension Acute biliary pancreatitis (05/2022) Surgical History Surgical History History of breast augmentation History of abdominoplasty History of laparoscopic cholecystectomy (06/09/22) History of appendectomy Family History Family History Father Diabetes mellitus Social History Social History (Updated 10/15/24 @ 01:48 by Christin Galdamez PA-C) Social History: Surrogate medical decision maker: Kyung Andres, sister ([phone]). Code status: Full code. Smoking status: Never smoker Alcohol intake: never Substance use: never Substance use type: does not use Lack of Transportation: No Lack of Food: Never True Current Housing: I Have Housing Concerned About Future Housing: No Difficulty Paying Gas/Electric Bills: No Difficulty Paying for Meds: No Currently Unemployed: No Education: High School Diploma/GED Difficulty w/ Childcare or Family Care: No Living arrangements: with family Additional living arrangements comments: Lives in [place] with her boyfriend and 3 children aged 16, 13, and 3. 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 Spiritual care concerns: No Meds Home Medications and Allergies Home Medications ?Medication ?Instructions ?Recorded ?Confirmed ?Type losartan 50 mg tablet 50 mg PO BID 10/14/24 10/14/24 History Allergies Allergy/AdvReac Type Severity Reaction Status Date / Time No Known Allergies Allergy Verified 06/22/22 13:20 Vital Signs Vital Signs - 24 hr 10/14/24 20:12 10/14/24 20:12 10/14/24 20:12 Temperature 98.9 F Pulse Rate 84 75 Respiratory Rate 14 Blood Pressure 183/109 H Pulse Oximetry 100 100 Oxygen Delivery Room Air Room Air 10/14/24 20:31 10/14/24 22:36 10/14/24 23:05 Temperature Pulse Rate 78 85 73 Respiratory Rate 15 16 16 Blood Pressure 160/105 H 140/94 H 135/94 H Pulse Oximetry 100 98 98 Oxygen Delivery Exam Narrative: General: Well-developed, nontoxic-appearing female sitting in bed in no acute distress. Weight: 90.9 kg. BMI: 31.4. HEENT: Normocephalic, atraumatic. PERRL, EOMI. Sclera anicteric. Oral mucosa moist. Oropharynx clear. Neck: Supple. Respiratory: Lungs are clear to auscultation bilaterally. Cardiovascular: Regular rate and rhythm with S1-S2. No murmur, rub, or gallop. Chest: No tenderness to palpation over the chest wall. Gastrointestinal: Abdomen is soft, nontender, and nondistended with positive bowel sounds. Skin: Warm and dry. No rash or lesions on limited exam. Extremities: No cyanosis, clubbing, or edema. Radial and pedal pulses intact. No palpable knots cords. Neurological: Alert. Cranial nerves 2-12 are grossly intact. No gross focal deficits to casual conversation. Psychiatric: Pleasant and cooperative with normal mood and affect. Judgment and insight intact. H&P: Results Labs Labs: Short CBC 10/14/24 Range/Units 20:17 WBC 10.6 H (4.5-10.0) K/mm3 Hgb 13.9 (12.0-15.0) g/dL Hct 41.8 (37.0-47.0) % Plt Count 368 (150-375) k/mm3 BMP 10/14/24 20:17 Sodium 139 Potassium 3.6 Chloride 101 Carbon Dioxide 24 BUN 15 D Creatinine 0.64 L Glucose 98 Calcium 10.0 Cardiac Enzymes 10/14/24 10/14/24 Range/Units 20:17 23:19 Troponin I < 0.012 0.171 H* D (0.000-0.034) ng/mL Liver Function 10/14/24 Range/Units 20:17 Total Bilirubin 0.6 (0.2-1.3) mg/dL AST 35 (14-36) U/L ALT 65 H (6-35) U/L Alkaline Phosphatase 89 (38-126) U/L Albumin 5.2 H (3.5-5.1) g/dL Imaging Chest X-Ray 10/14/24 20:45 IMPRESSION: No active cardiopulmonary disease. Assessment and Plan Assessment and plan (1) Non-ST elevation myocardial infarction (NSTEMI): Code(s): I21.4 - Non-ST elevation (NSTEMI) myocardial infarction Status: Acute (2) Hypertension: Code(s): I10 - Essential (primary) hypertension Status: Acute Plan The patient presented to the emergency department for evaluation of chest pain as detailed in HPI. Labs, imaging, EKG, and all reports were personally reviewed. Initial troponin was normal however EKG did show some ST T-wave changes in the for through V6 and T-wave inversions in III and AVF. These EKG changes improved on repeat EKG however her 3 hour troponin jump to 0.171. She received aspirin 324 mg and enoxaparin 1 milligram/kilogram and she will be NPO for possible cardiac catheterization later on today. Initial blood pressure was quite elevated, perhaps due to pain and anxiety, and it has improved without intervention. We will continue to monitor blood pressures closely. Her home medications will be reviewed and resumed as appropriate. Findings and treatment plan were discussed with the patient. Questions were solicited and answered to satisfaction. The patient's medical management will be taken over by the hospitalist team in a.m. Quality VTE Prophylaxis VTE prophylaxis: pharmacologic ordered The patient has been admitted under observation status. Hospitalist MIPS Advance Care Plan I have confirmed that the patient's Advanced Care Plan is present, code status is documented, or surrogate decision maker is listed in patient medical record.: Yes Medication Reconciliation I have utilized all available resources to obtain, update and review the patients current medications (includes all prescriptions, OTC, herbals, cannabis, and nutritional supplements).: Yes
[2024-10-15] MEDS: ENOXAPARIN 100 MG/ML SYRINGE 90 MG SUB-Q ×2 (01:34→13:35)
--- NOTE | 2024-10-15 02:16 | ECG_ITS ---
Test Date: 2024-10-15 02:20:22 Measurements Intervals [place] Rate: 74 P: 24 SC: 175 QRS: -1 QRSD: 82 T: 77 QT: 379 QTc: 423 Interpretive Statements SINUS RHYTHM MINIMAL VOLTAGE CRITERIA FOR LVH, CONSIDER NORMAL VARIANT [MEETS CRITERIA IN ONE OF: R(aVL), S(V1), R(V5), R(V5/V6)+S(V1)] T-WAVE ABNORMALITY IN THE HIGH LATERAL LEADS Compared to ECG 10/14/2024 23:16:44 NO SIGNIFICANT CHANGES Electronically Signed On 10-15-2024 13:32:14 CDT by Denzel Amezcua M.D.
--- NOTE | 2024-10-15 02:48 | ADMGEN ---
This patient, Pat Andres, was admitted to IMU Room 213-01. Patient/family oriented to hospital policies and general routines including ID bracelet, bed and alarms, visiting hours, pain management, procedures, bathroom and other care routines, personal items, smoking policy, room service/diet, and visiting hours. Information on how to activate the Rapid Response Team has been discussed. Patient/Family are encouraged to report perceived risks to care and to ask questions if they do not understand what they are told or what they should do.
[2024-10-15 03:08] LABS: Troponin I 0.417 ng/mL (0.000-0.034)
[2024-10-15 05:39] LABS: Basophils Percent Auto 0.5 % (0.2-1.2); Eosinophils Absolute Auto 0.2 K/mm3 (0-0.3); Hematocrit 35.1 % (37.0-47.0); Hemoglobin 11.6 g/dL (12.0-15.0); Immature Granulocyte Absolute 0.02 K/mm3 (0.00-0.031); Immature Granulocyte Percent A 0.2 % (0-0.5); Lymphocytes Percent Auto 35.1 % (18.3-44.2); Mean Corpuscular Hemoglobin 30.6 pg (26-34); Mean Corpuscular Volume 92.6 fl (80-100); Mean Platelet Volume 9.2 fl (7.4-10.4); Monocytes Absolute Auto 0.5 K/mm3 (0.1-0.6); Monocytes Percent Auto 6.2 % (2.6-8.5); Neutrophils Absolute Auto 4.8 K/mm3 (1.3-6.7); Platelet Count Result 311 k/mm3 (150-375); Red Blood Count 3.79 M/mm3 (4.2-5.4); Red Cell Distribution Width 12.1 % (11.5-14.5); White Blood Count 8.5 K/mm3 (4.5-10.0)
--- NOTE | 2024-10-15 05:41 | ECG_ITS ---
Test Date: 2024-10-15 05:47:46 Measurements Intervals [place] Rate: 76 P: 34 NE: 171 QRS: 6 QRSD: 86 T: 91 QT: 381 QTc: 431 Interpretive Statements SINUS RHYTHM NONSPECIFIC T-WAVE ABNORMALITY Compared to ECG 10/15/2024 02:20:22 No significant changes Electronically Signed On 10-15-2024 13:33:55 CDT by Denzel Amezcua M.D.
[2024-10-15 05:51] LABS: Alanine Aminotransferase 49 U/L (6-35); Albumin Level 4.1 g/dL (3.5-5.1); Alkaline Phosphatase 72 U/L (38-126); Anion Gap 12 mmol/L (4-12); Aspartate Amino Transferase 31 U/L (14-36); Bilirubin,Total 0.6 mg/dL (0.2-1.3); Blood Urea Nitrogen 12 mg/dL (7-17); Calcium 8.8 mg/dL (8.4-10.2); Carbon Dioxide 22 mmol/L (22-30); Chloride 104 mmol/L (98-107); Cholesterol 129 mg/dL (0-200); Estimated CRCL calculation 144 ml/min; Estimated Glomerular Filt Rate > 60; Glucose 87 mg/dL (65-110); HDL Direct 42 mg/dL; Potassium 3.5 mmol/L (3.4-5.0); Sodium 138 mmol/L (137-145); Triglycerides 157 mg/dL (<150)
[2024-10-15 05:59] LABS: LDL Cholesterol Direct 57 mg/dL
[2024-10-15 06:04] LABS: Troponin I 0.438 ng/mL (0.000-0.034)
--- NOTE | 2024-10-15 08:12 | P.PNIM_ITS ---
Progress Note: A&P Assessment and Plan (1) Non-ST elevation myocardial infarction (NSTEMI): Code(s): I21.4 - Non-ST elevation (NSTEMI) myocardial infarction Status: Acute Assessment and Plan: * Supported by exertional substernal chest pain with dyspnea, T-wave abnormality on EKG, and TNI increase from <0.012 to 0.438 * Continue enoxaparin and ASA * Cardiology consultation pending (2) Hypertension: Code(s): I10 - Essential (primary) hypertension Status: Acute Assessment and Plan: * 10/15 normotensive, holding losartan due to BP 115/65 (3) GERD (gastroesophageal reflux disease): Qualifiers: Esophagitis presence: without esophagitis Qualified Code(s): K21.9 - Gastro-esophageal reflux disease without esophagitis Code(s): K21.9 - Gastro-esophageal reflux disease without esophagitis Status: Acute Assessment and Plan: * Continue pantoprazole Subjective Date/time seen: 10/15/24 08:12 Interval history: 39 y/o f w/ hbp presented with new sudden onset of substernal exertional chest pain associated with sob and relieved by rest. Worst while carrying her toddler up a hill at the park. Denied fam hx of premature CAD. Denied pleuritic component. Currently pain free. LMP about one month ago. Review of Systems Review of Systems: All systems reviewed & are unremarkable except as noted in HPI and below Exam Narrative: HEENT: PERRL, sclerae nonicteric, pharyngeal mucosa pink and intact NECK: No JVD CHEST: Clear to auscultation. Normal effort. HEART: NL S1/S2, regular, no murmur ABDOMEN: BS+, soft, nontender, no mass, no bruits EXTREMITIES: No cyanosis, edema, or clubbing NEUROLOGIC: CN intact and symmetric to inspection. MUSCULOSKELETAL: Tone and strength symmetric. PSYCH: Alert. Oriented to person, place, and time. Objective Data Vital Signs Vital Signs: Vital Signs - 24 hr 10/14/24 20:12 10/14/24 20:12 10/14/24 20:12 Temperature 98.9 F Pulse Rate 84 75 Respiratory Rate 14 Blood Pressure 183/109 H Pulse Oximetry 100 100 Oxygen Delivery Room Air Room Air 10/14/24 20:31 10/14/24 20:45 10/14/24 22:36 Temperature Pulse Rate 78 76 85 Respiratory Rate 15 15 16 Blood Pressure 160/105 H 151/87 H 140/94 H Pulse Oximetry 100 96 98 Oxygen Delivery 10/14/24 23:05 10/15/24 01:12 10/15/24 01:34 Temperature Pulse Rate 73 77 77 Respiratory Rate 16 16 18 Blood Pressure 135/94 H 122/83 111/80 Pulse Oximetry 98 96 98 Oxygen Delivery 10/15/24 02:30 10/15/24 02:30 10/15/24 03:27 Temperature 98.8 F Pulse Rate 76 76 77 Respiratory Rate 16 18 Blood Pressure 126/82 121/71 Pulse Oximetry 98 94 Oxygen Delivery 10/15/24 04:00 10/15/24 06:00 10/15/24 07:35 Temperature 98.5 F Pulse Rate 74 76 83 Respiratory Rate 14 Blood Pressure 115/65 Pulse Oximetry 98 Oxygen Delivery Intake/Output Intake/Output: Intake & Output 10/12/24 10/13/24 10/14/24 10/15/24 23:59 23:59 23:59 23:59 Intake Total 0 Balance 0 Meds/Results Medications: Active Medications Generic Name Dose Route Start Last Admin Trade Name Freq PRN Reason Stop Dose Admin Acetaminophen 650 mg 10/15/24 00:56 Acetaminophen 325 Mg Tablet PO Q6H PRN Mild Pain (1-3) or Fever Aspirin 81 mg 10/15/24 08:00 Aspirin 81 Mg Chewable Tablet PO DAILY@0800 [facility] Enoxaparin Sodium 90 mg 10/15/24 14:00 Enoxaparin 100 Mg/Ml Syringe SUB-Q Q12H [facility] Morphine Sulfate 2 mg 10/15/24 00:56 Morphine Sulfate (*Crx) 2 Mg/Ml Inj IV PUSH Q4H PRN Pain Rated 7-10 Pantoprazole Sodium 40 mg 10/15/24 09:00 Pantoprazole Sodium Iv 40 Mg Vial IV PUSH QAM [facility] Perflutren Lipid Microsphere 0 ml 10/15/24 00:56 Perflutren Lipid Microspheres 1.5 Ml Vial Diluted To 10 Ml Total Volume IV P [facility] 10/18/24 00:56 ONCE PRN adequate visualization Protocol Radiology Results: ITS Impressions Chest X-Ray 10/14/24 20:45 IMPRESSION: No active cardiopulmonary disease Labs Labs: Laboratory Results - last 24 hr 10/14/24 10/14/2410/15/25 20:17 23:19 02:28 WBC 10.6 H RBC 4.51 Hgb 13.9 Hct 41.8 MCV 92.7 MCH 30.8 MCHC 33.3 RDW 12.1 Plt Count 368 MPV 9.1 Immature Gran % (Auto) 0.3 Neut % (Auto) 59.0 Lymph % (Auto) 32.1 [place] % (Auto) 5.9 Eos % (Auto) 2.2 Baso % (Auto) 0.5 Lymph # (Auto) 3.41 H [place] # (Auto) 0.6 Eos # (Auto) 0.2 Baso # (Auto) 0.1 Abs Immat Gran (auto) 0.03 Absolute Neuts (auto) 6.3 Absolute Nucleated RBC 0.000 Nucleated RBC % 0.0 PT 12.2 INR 0.9 APTT 24.0 Sodium 139 Potassium 3.6 Chloride 101 Carbon Dioxide 24 Anion Gap 14 H BUN 15 D Creatinine 0.64 L Estim Creat Clear Calc 119 Estimated GFR > 60 Glucose 98 Calcium 10.0 Total Bilirubin 0.6 AST 35 ALT 65 H Alkaline Phosphatase 89 Troponin I < 0.012 0.171 H* D 0.417 H* D Total Protein 9.0 H Albumin 5.2 H Triglycerides Cholesterol LDL Cholesterol Direct HDL Direct Lipase 203 10/15/24 05:23 WBC 8.5 RBC 3.79 L Hgb 11.6 L Hct 35.1 L MCV 92.6 MCH 30.6 MCHC 33.0 RDW 12.1 Plt Count 311 MPV 9.2 Immature Gran % (Auto) 0.2 Neut % (Auto) 56.0 Lymph % (Auto) 35.1 [place] % (Auto) 6.2 Eos % (Auto) 2.0 Baso % (Auto) 0.5 Lymph # (Auto) 3.00 [place] # (Auto) 0.5 Eos # (Auto) 0.2 Baso # (Auto) 0.0 Abs Immat Gran (auto) 0.02 Absolute Neuts (auto) 4.8 Absolute Nucleated RBC 0.000 Nucleated RBC % 0.0 PT INR APTT Sodium 138 Potassium 3.5 Chloride 104 Carbon Dioxide 22 Anion Gap 12 BUN 12 Creatinine 0.52 L Estim Creat Clear Calc 144 Estimated GFR > 60 Glucose 87 Calcium 8.8 Total Bilirubin 0.6 AST 31 ALT 49 H Alkaline Phosphatase 72 Troponin I 0.438 H* Total Protein 7.0 Albumin 4.1 Triglycerides 157 H Cholesterol 129 LDL Cholesterol Direct 57 HDL Direct 42 Lipase
[2024-10-15] MEDS: PANTOPRAZOLE SODIUM IV 40 MG VIAL IV PUSH (09:38)
[2024-10-15] MEDS: ASPIRIN 81 MG CHEWABLE TABLET PO (09:38)
[2024-10-15 11:04] LABS: Beta HCG Quantitative < 2.39 mIU/ML
--- NOTE | 2024-10-15 12:21 | P.CONCA_ITS ---
Assessment and Plan Assessment and plan (1) Non-ST elevation myocardial infarction (NSTEMI): Code(s): I21.4 - Non-ST elevation (NSTEMI) myocardial infarction Status: Acute Plan 1. NSTEMI 2. Hypertension PLAN: -Given chest pain, troponin elevation, and EKG changes, recommend LHC. Discussed procedure with the patient, including indication for the procedure, procedure details, risks vs benefits, etc. Patient agreeable. As patient is currently chest pain free and otherwise comfortable, does not need urgent/emergent catheterization today. Will plan for LHC tomorrow. NPO at midnight. -Continue medical management for NSTEMI. Continue with therapeutic Lovenox, will set last dose to be this evening in preparation for LHC. Continue ASA. Start high intensity statin, beta zhao. -Echocardiogram ordered. -Would hold home Losartan for now as blood pressures on the softer side. History of Present Illness History of Present Illness Consult date/time: 10/15/24 12:21 Requesting physician: Christin Galdamez PA-C Consult reason: Other (NSTEMI) Reason For Visit: Chest pain, elevated troponin Narrative: We are consulted for NSTEMI. Pat is a 39 year old female with hypertension who presented with chest pain. She was showering yesterday when she developed acute substernal chest pressure, felt short of breath with it. Got out of the shower, resolved after a few minutes. Later on in the day, she was playing with her kid at a playground and redeveloped substernal chest pressure. Lasted for about 45 minutes. No prior history of chest pain in the past. No prior cardiac history. No recent illnesses. Reports her father has heart disease, but does not know the specific details regarding it. No tobacco, marijuana use. She is currently chest pain free. Initial troponin was negative, however, increased to 0.438. CXR without acute findings. Initial EKG shows sinus rhythm, T-wave inversions in the inferolateral leads concerning for ischemia. Second EKG shows improvement in the inferolateral T-waves, however, T wave abnormality in the high lateral leads, which were not present on the first EKG. Third EKG unchanged compared to second one. Fourth EKG remains stable. Review of Systems 2 Review of Systems: All systems reviewed & are unremarkable except as noted in HPI and below (HPI) PMFSH Past Medical History Medical History Hypertension Acute biliary pancreatitis (05/2022) Surgical History Surgical History History of breast augmentation History of abdominoplasty History of laparoscopic cholecystectomy (06/09/22) History of appendectomy Family History Family History Father Diabetes mellitus Heart disease Mother Hypertension Social History Social History Social History: Surrogate medical decision maker: Kyung Andres, sister ([phone]). Code status: Full code. Smoking status: Never smoker Alcohol intake: current Drinks per week: 1 Substance use: never Substance use type: does not use Do You Feel Safe in your Home?: Yes Lack of Transportation: No Lack of Food: Never True Current Housing: I Have Housing Concerned About Future Housing: No Difficulty Paying Gas/Electric Bills: No Difficulty Paying for Meds: No Currently Unemployed: No Education: Trade/Vocational Certificate Difficulty w/ Childcare or Family Care: No Living arrangements: with family Additional living arrangements comments: Lives in [place] with her boyfriend and 3 children aged 16, 13, and 3. 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 Spiritual care concerns: No Meds Home Medications and Allergies Home Medications ?Medication ?Instructions ?Recorded ?Confirmed ?Type losartan 50 mg tablet 50 mg PO BID 10/14/24 10/14/24 History Lactobacillus rhamnosus GG 20 See Rx Instructions PO .COMPLEX 10/15/24 10/15/24 History billion cell capsule (Probiotic Digestive Care) ibuprofen 200 mg tablet (Advil) 400 mg PO Q6H pain 10/15/24 10/15/24 History [id number] 18 mg-FA 400 1 tablet PO DAILY 10/15/24 10/15/24 History mcg-calcium 500 mg-vit K 50 mcg tablet (Women's Multivitamin) Allergies Allergy/AdvReac Type Severity Reaction Status Date / Time No Known Allergies Allergy Verified 06/22/22 13:20 Vital Signs Vital Signs - 24 hr 10/14/24 20:12 10/14/24 20:12 10/14/24 20:12 Temperature 37.2 C Pulse Rate 84 75 Respiratory Rate 14 Blood Pressure 183/109 H Pulse Oximetry 100 100 Oxygen Delivery Room Air Room Air 10/14/24 20:31 10/14/24 20:45 10/14/24 22:36 Temperature Pulse Rate 78 76 85 Respiratory Rate 15 15 16 Blood Pressure 160/105 H 151/87 H 140/94 H Pulse Oximetry 100 96 98 Oxygen Delivery 10/14/24 23:05 10/15/24 01:12 10/15/24 01:34 Temperature Pulse Rate 73 77 77 Respiratory Rate 16 16 18 Blood Pressure 135/94 H 122/83 111/80 Pulse Oximetry 98 96 98 Oxygen Delivery 10/15/24 02:30 10/15/24 02:30 10/15/24 03:27 Temperature 37.1 C Pulse Rate 76 76 77 Respiratory Rate 16 18 Blood Pressure 126/82 121/71 Pulse Oximetry 98 94 Oxygen Delivery 10/15/24 04:00 10/15/24 06:00 10/15/24 07:35 Temperature 36.9 C Pulse Rate 74 76 83 Respiratory Rate 14 Blood Pressure 115/65 Pulse Oximetry 98 Oxygen Delivery 10/15/24 12:00 Temperature 36.9 C Pulse Rate 79 Respiratory Rate 14 Blood Pressure 106/61 Pulse Oximetry 98 Oxygen Delivery Exam 2 Const: General: comfortable and no acute distress HENMT: Mouth: Yes moist mucous membranes Eyes: General: appearance normal, both eyes and all related structures S clera: sclerae normal Resp: Effort & Inspection: normal respiratory effort Cardio: Rate: regular rate Rhythm: regular rhythm Heart sounds: no murmurs Skin: General skin exam: normal color Neuro: Speech: normal speech Psych: Mental Status: mental status grossly normal Affect: normal affect Results Labs and Meds 10/15/24 05:23 10/15/24 05:23 Lab results: Cardiac Enzymes 10/14/24 10/14/24 10/15/24 Range/Units 20:17 23:19 02:28 AST 35 (14-36) U/L Troponin I < 0.012 0.171 H* D 0.417 H* D (0.000-0.034) ng/mL 10/15/24 Range/Units 05:23 AST 31 (14-36) U/L Troponin I 0.438 H* (0.000-0.034) ng/mL Coagulation 10/14/24 Range/Units 20:17 PT 12.2 (11.1-14.7) Seconds APTT 24.0 (22.3-36.8) Seconds Lipids 10/15/24 Range/Units 05:23 Triglycerides 157 H (<150) mg/dL Cholesterol 129 (0-200) mg/dL CBC 10/14/24 10/15/24 Range/Units 20:17 05:23 WBC 10.6 H 8.5 (4.5-10.0) K/mm3 RBC 4.51 3.79 L (4.2-5.4) M/mm3 Hgb 13.9 11.6 L (12.0-15.0) g/dL Hct 41.8 35.1 L (37.0-47.0) % Plt Count 368 311 (150-375) k/mm3 Lymph # (Auto) 3.41 H 3.00 (0.9-3.2) K/mm3 [place] # (Auto) 0.6 0.5 (0.1-0.6) K/mm3 Eos # (Auto) 0.2 0.2 (0-0.3) K/mm3 Baso # (Auto) 0.1 0.0 (0.0-0.1) K/mm3 Comprehensive Metabolic Panel 10/14/24 10/15/24 Range/Units 20:17 05:23 Sodium 139 138 (137-145) mmol/L Potassium 3.6 3.5 (3.4-5.0) mmol/L Chloride 101 104 (98-107) mmol/L Carbon Dioxide 24 22 (22-30) mmol/L BUN 15 D 12 (7-17) mg/dL Creatinine 0.64 L 0.52 L (0.7-1.0) mg/dL Glucose 98 87 (65-110) mg/dL Calcium 10.0 8.8 (8.4-10.2) mg/dL AST 35 31 (14-36) U/L ALT 65 H 49 H (6-35) U/L Alkaline Phosphatase 89 72 (38-126) U/L Total Protein 9.0 H 7.0 (6.3-8.2) g/dL Albumin 5.2 H 4.1 (3.5-5.1) g/dL Intake and Output 10/14/24 10/15/24 10/15/24 23:59 07:59 15:59 Intake Total 0 Balance 0 Intake: Oral 0 Patient Weight 10/15/24 23:59 Weight 91.9 kg
[2024-10-15] MEDS: ATORVASTATIN 40 MG TABLET 80 MG PO (13:35)
--- NOTE | 2024-10-15 20:15 | ECG_ITS ---
Test Date: 2024-10-15 20:26:32 Measurements Intervals [place] Rate: 77 P: 45 SC: 163 QRS: 12 QRSD: 85 T: 6 QT: 367 QTc: 416 Interpretive Statements SINUS RHYTHM WITH SINUS ARRHYTHMIA ST-elevation IA in high lateral leads reciprocal changes inferior leads acute IA Electronically Signed On 10-16-2024 16:39:31 CDT by Nicholas Castro M.D.
[2024-10-15] MEDS: NITROGLYCERIN SL 0.4 MG TABLET SUBLINGUAL ×4 (20:20→23:55)
[2024-10-15] MEDS: METOPROLOL TARTRATE 25 MG TABLET PO (20:31)
[2024-10-15] MEDS: MORPHINE SULFATE (*CRX) 2 MG/ML INJ IV PUSH (21:06)
[2024-10-15] MEDS: NITROGLYCERIN OINTMENT 1 INCH DOSE TRANSDERM ×2 (21:35→23:56)
[2024-10-15] MEDS: TICAGRELOR 90 MG TABLET 180 MG PO (21:56)
--- NOTE | 2024-10-15 22:24 | PC.NURSE ---
2014 Patient called registration specialist light system asking for RN. RN to patient bedside. Patient complaining of medial chest pressure radiating to right side, lightheadedness, and tingling in her hands. Patient given 3 sublingual nitroglycerin tabs with relief after the third dose. 2099 Patient called RN back into room complaining of the same chest pain as before. RN gave IV morphine with minimal relief. 2114 RN called cardiology exchange. [address] Dr[address] Amezcua returned call. Discussed patient assessment, vital signs, EKG, and medications given. Provider ordered nitro paste and stated she would review EKG. 2143 Provider called back stating EKG is concerning for STEMI. 2145 STEMI alert called.
--- NOTE | 2024-10-15 23:10 | ECG_ITS ---
Test Date: 2024-10-15 23:35:47 Measurements Intervals [place] Rate: 88 P: 146 [place]: 173 QRS: 169 QRSD: 83 T: 54 QT: 371 QTc: 449 Interpretive Statements SINUS RHYTHM ARM LEADS REVERSED [INVERTED P AND QRS IN I] ATYPICAL ECG Compared to ECG 10/15/2024 20:26:32 LEAD REVERSAL IS NOW PRESENT Electronically Signed On 10-17-2024 15:24:56 CDT by Denzel Amezcua M.D.
--- NOTE | 2024-10-15 23:11 | P.SEDATION_ITS ---
Moderate Sedation Note-Pt Data Patient Data Diagnosis: Active chest pain Present Complaint: Chest pain Procedure to be performed/Plan: Coronary angiogram Allergies Allergy/AdvReac Type Severity Reaction Status Date / Time No Known Allergies Allergy Verified 06/22/22 13:20 Home Medications ?Medication ?Instructions ?Recorded ?Confirmed ?Type losartan 50 mg tablet 50 mg PO BID 10/14/24 10/14/24 History Lactobacillus rhamnosus GG 20 See Rx Instructions PO .COMPLEX 10/15/24 10/15/24 History billion cell capsule (Probiotic Digestive Care) ibuprofen 200 mg tablet (Advil) 400 mg PO Q6H pain 10/15/24 10/15/24 History [id number] 18 mg-FA 400 1 tablet PO DAILY 10/15/24 10/15/24 History mcg-calcium 500 mg-vit K 50 mcg tablet (Women's Multivitamin) Current Medications: Active Medications Acetaminophen (Acetaminophen 325 Mg Tablet) 650 mg PO Q6H PRN PRN Reason: Mild Pain (1-3) or Fever Aspirin (Aspirin 81 Mg Chewable Tablet) 81 mg PO DAILY@0800 [facility] Last Admin: 10/15/24 09:38 Dose: 81 mg Atorvastatin Calcium (Atorvastatin 40 Mg Tablet) 80 mg PO DAILY [facility] Last Admin: 10/15/24 13:35 Dose: 80 mg Enoxaparin Sodium (Enoxaparin 100 Mg/Ml Syringe) 90 mg SUB-Q Q12H [facility] Stop: 10/15/24 23:59 Last Admin: 10/15/24 13:35 Dose: 90 mg Metoprolol Tartrate (Metoprolol Tartrate 25 Mg Tablet) 25 mg PO Q12HR [facility] Last Admin: 10/15/24 20:31 Dose: 25 mg Morphine Sulfate (Morphine Sulfate (*Crx) 2 Mg/Ml Inj) 2 mg IV PUSH Q4H PRN PRN Reason: Pain Rated 7-10 Last Admin: 10/15/24 21:06 Dose: 2 mg Nitroglycerin (Nitroglycerin Sl 0.4 Mg Tablet) 0.4 mg SUBLINGUAL Q5MIN PRN PRN Reason: Chest Pain Last Admin: 10/15/24 20:33 Dose: 0.4 mg Nitroglycerin (Nitroglycerin Ointment 1 Inch Dose) 1 inch TRANSDERM Q6HR [facility] Last Admin: 10/15/24 21:35 Dose: 1 inch Pantoprazole Sodium (Pantoprazole Sodium Iv 40 Mg Vial) 40 mg IV PUSH QAM GEORGE Last Admin: 10/15/24 09:38 Dose: 40 mg Perflutren Lipid Microsphere (Perflutren Lipid Microspheres 1.5 Ml Vial Diluted To 10 Ml Total Volume) 0 ml IV PUSH ONCE PRN; Protocol PRN Reason: adequate visualization Stop: 10/18/24 00:56 Sedation/Anesthesia: No previous sedation/anesthesia problems (including family history). [facility] Past Medical History Medical History Hypertension Acute biliary pancreatitis (05/2022) Surgical History Surgical History History of breast augmentation History of abdominoplasty History of laparoscopic cholecystectomy (06/09/22) History of appendectomy Family History Family History Father Diabetes mellitus Heart disease Mother Hypertension Social History Social History Social History: Surrogate medical decision maker: Kyung Andres, sister ([phone]). Code status: Full code. Smoking status: Never smoker Alcohol intake: current Drinks per week: 1 Substance use: never Substance use type: does not use Do You Feel Safe in your Home?: Yes Lack of Transportation: No Lack of Food: Never True Current Housing: I Have Housing Concerned About Future Housing: No Difficulty Paying Gas/Electric Bills: No Difficulty Paying for Meds: No Currently Unemployed: No Education: Trade/Vocational Certificate Difficulty w/ Childcare or Family Care: No Living arrangements: with family Additional living arrangements comments: Lives in [place] with her boyfriend and 3 children aged 16, 13, and 3. 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 Spiritual care concerns: No Mod Sed Physical Exam Physical Exam Pre Procedural Exam: Normal: Appearance, Eyes, Ears, Nose, Neck, Throat, Airway, Lungs, Heart Size, Heart Rate, Heart Rhythm, Neuro Exam, Abdomen, Liver, Kidneys, Spleen, Breasts, Genitalia, Extremities and Skin Hours since solid foods: 8 Hours since liquid intake: 8 Mallampati Classification: class 1 Internal Medicine - PN: Obj Da Vital Signs Vital Signs: Vital Signs - 24 hr 10/15/24 01:12 10/15/24 01:34 10/15/24 02:30 Temperature Pulse Rate 77 77 76 Respiratory Rate 16 18 Blood Pressure 122/83 111/80 Pulse Oximetry 96 98 Oxygen Delivery Oxygen Flow Rate 10/15/24 02:30 10/15/24 03:27 10/15/24 04:00 Temperature 37.1 C Pulse Rate 76 77 74 Respiratory Rate 16 18 Blood Pressure 126/82 121/71 Pulse Oximetry 98 94 Oxygen Delivery Oxygen Flow Rate 10/15/24 06:00 10/15/24 07:35 10/15/24 08:00 Temperature 36.9 C Pulse Rate 76 83 80 Respiratory Rate 14 Blood Pressure 115/65 Pulse Oximetry 98 Oxygen Delivery Oxygen Flow Rate 10/15/24 12:00 10/15/24 12:00 10/15/24 14:00 Temperature 36.9 C Pulse Rate 79 93 81 Respiratory Rate 14 Blood Pressure 106/61 Pulse Oximetry 98 Oxygen Delivery Oxygen Flow Rate 10/15/24 16:00 10/15/24 16:00 10/15/24 18:00 Temperature 36.5 C Pulse Rate 84 86 81 Respiratory Rate 14 Blood Pressure 113/75 Pulse Oximetry 98 Oxygen Delivery Oxygen Flow Rate 10/15/24 19:36 10/15/24 20:00 10/15/24 20:00 Temperature 36.9 C Pulse Rate 81 82 Respiratory Rate 18 Blood Pressure 111/71 Pulse Oximetry 98 100 Oxygen Delivery Nasal Cannula Oxygen Flow Rate 2 10/15/24 20:19 10/15/24 20:27 10/15/24 20:31 Temperature Pulse Rate 90 93 83 Respiratory Rate Blood Pressure 153/107 H 145/102 H Pulse Oximetry Oxygen Delivery Oxygen Flow Rate 10/15/24 20:33 10/15/24 21:06 10/15/24 22:00 Temperature Pulse Rate 91 102 H 87 Respiratory Rate 22 H Blood Pressure 132/90 167/95 H Pulse Oximetry 100 Oxygen Delivery Oxygen Flow Rate 10/15/24 22:14 Temperature 36.6 C Pulse Rate 83 Respiratory Rate 20 Blood Pressure 158/103 H Pulse Oximetry 100 Oxygen Delivery Oxygen Flow Rate Intake/Output Intake/Output: Intake & Output 10/12/24 10/13/24 10/14/24 10/15/24 23:59 23:59 23:59 23:59 Intake Total 480 Balance 480 Meds/Results Medications: Active Medications Generic Name Dose Route Start Last Admin Trade Name Freq PRN Reason Stop Dose Admin Acetaminophen 650 mg 10/15/24 00:56 Acetaminophen 325 Mg Tablet PO Q6H PRN Mild Pain (1-3) or Fever Aspirin 81 mg 10/15/24 08:00 10/15/24 09:38 Aspirin 81 Mg Chewable Tablet PO 81 mg DAILY@0800 GEORGE Administration Atorvastatin Calcium 80 mg 10/15/24 12:30 10/15/24 13:35 Atorvastatin 40 Mg Tablet PO 80 mg DAILY GEORGE Administration Enoxaparin Sodium 90 mg 10/15/24 14:00 10/15/24 13:35 Enoxaparin 100 Mg/Ml Syringe SUB-Q 10/15/24 23:59 90 mg Q12H GEORGE Administration Metoprolol Tartrate 25 mg 10/15/24 21:00 10/15/24 20:31 Metoprolol Tartrate 25 Mg Tablet PO 25 mg Q12HR GEORGE Administration Morphine Sulfate 2 mg 10/15/24 00:56 10/15/24 21:06 Morphine Sulfate (*Crx) 2 Mg/Ml Inj IV PUSH 2 mg Q4H PRN Administration Pain Rated 7-10 Nitroglycerin 0.4 mg 10/15/24 12:34 10/15/24 20:33 Nitroglycerin Sl 0.4 Mg Tablet SUBLINGUAL 0.4 mg Q5MIN PRN Administration Chest Pain Nitroglycerin 1 inch 10/15/24 21:25 10/15/24 21:35 Nitroglycerin Ointment 1 Inch Dose TRANSDERM 1 inch Q6HR GEORGE Administration Pantoprazole Sodium 40 mg 10/15/24 09:00 10/15/24 09:38 Pantoprazole Sodium Iv 40 Mg Vial IV PUSH 40 mg QAM GEORGE Administration Perflutren Lipid Microsphere 0 ml 10/15/24 00:56 Perflutren Lipid Microspheres 1.5 Ml Vial Diluted To 10 Ml Total Volume IV PUSH 10/18/24 00:56 ONCE PRN adequate visualization Protocol Radiology Results: ITS Impressions Chest X-Ray 10/14/24 20:45 IMPRESSION: No active cardiopulmonary disease Labs 10/15/24 05:23 10/15/24 05:23 Labs: Laboratory Results - last 24 hr 10/14/24 10/15/24 10/15/24 23:19 02:28 05:23 WBC 8.5 RBC 3.79 L Hgb 11.6 L Hct 35.1 L MCV 92.6 MCH 30.6 MCHC 33.0 RDW 12.1 Plt Count 311 MPV 9.2 Immature Gran % (Auto) 0.2 Neut % (Auto) 56.0 Lymph % (Auto) 35.1 [place] % (Auto) 6.2 Eos % (Auto) 2.0 Baso % (Auto) 0.5 Lymph # (Auto) 3.00 [place] # (Auto) 0.5 Eos # (Auto) 0.2 Baso # (Auto) 0.0 Abs Immat Gran (auto) 0.02 Absolute Neuts (auto) 4.8 Absolute Nucleated RBC 0.000 Nucleated RBC % 0.0 Sodium 138 Potassium 3.5 Chloride 104 Carbon Dioxide 22 Anion Gap 12 BUN 12 Creatinine 0.52 L Estim Creat Clear Calc 144 Estimated GFR > 60 Glucose 87 Calcium 8.8 Total Bilirubin 0.6 AST 31 ALT 49 H Alkaline Phosphatase 72 Troponin I 0.171 H* D 0.417 H* D 0.438 H* Total Protein 7.0 Albumin 4.1 Triglycerides 157 H Cholesterol 129 LDL Cholesterol Direct 57 HDL Direct 42 Serum HCG, Qual Beta HCG, Quant 10/15/24 05:33 WBC RBC Hgb Hct MCV MCH MCHC RDW Plt Count MPV Immature Gran % (Auto) Neut % (Auto) Lymph % (Auto) [place] % (Auto) Eos % (Auto) Baso % (Auto) Lymph # (Auto) [place] # (Auto) Eos # (Auto) Baso # (Auto) Abs Immat Gran (auto) Absolute Neuts (auto) Absolute Nucleated RBC Nucleated RBC % Sodium Potassium Chloride Carbon Dioxide Anion Gap BUN Creatinine Estim Creat Clear Calc Estimated GFR Glucose Calcium Total Bilirubin AST ALT Alkaline Phosphatase Troponin I Total Protein Albumin Triglycerides Cholesterol LDL Cholesterol Direct HDL Direct Serum HCG, Qual Cancelled Beta HCG, Quant < 2.39 ASA Classification/Sedation ASA Classification/Sedation ASA Class: I Emergent: No Risks: Risks, benefits and alternatives explained and patient/family accepted plan for sedation. Patient re-evaluated immediately prior to sedation.
--- NOTE | 2024-10-15 23:12 | P.PCNCC_ITS ---
Cardiac Cath Procedure Note Date of procedure:: 10/15/24 Performing physician:: Mu Sandoval MD Date of service October 16[birth year] 1999 Indication:: Active chest pain Brief clinical history:: This is a 39 year old female with history hypertension presents to hospital with chest pain. Her troponins were minimally elevated the plan was for catheterization tomorrow however this night started to have active chest pain ce ntral in location and due to ongoing chest we decided to bring her to the director of laboratory operations to rule out obstructive CAD. Procedure Procedure performed:: 1-Moderate sedation that started at 10:46 p.m. and ended at 11:07 p.m. with total duration 21 minutes using 2mg of Versed and 50mcg fentanyl. The registered nurse was valerio langley 2-Selective left and right coronary angiogram. 3-Left heart catheterization with measurement of LVEDP and measurement of gradient across aortic valve. 4-Right common femoral arterial angiogram. 5-Deployment of 6 Nigerien Angio-Seal. Sedation/Medication given:: Moderate sedation. Access site:: Right common femoral artery. Estimated blood loss:: 10cc Procedure note:: After informed consent patient was brought in to director of laboratory operations with the was draped and prepped in usual manner. Moderate sedation was given and the right groin was infiltrated using 1% lidocaine. Five Nigerien sheath was obtained using micropuncture needle and the modified Seldinger technique. Selective left coronary angiogram was done using JL4 catheter with the tip of the catheter placed in the left main coronary artery. Selective right coronary angiogram was done using JR4 catheter with the tip of the catheter placed to the right coronary artery. After that 5 Nigerien pigtail catheter was advanced across the aortic valve into the left ventricle with measurement of LVEDP and measurement of gradient across aortic valve. LV angiogram done. Right common femoral arterial angiogram was done. Findings:: 1- left coronary artery is a large artery that divides into large LAD, large circumflex artery. Left main is free of disease 2- left anterior descending artery is a large artery that runs and wraps around the apex. Free of disease proximally gives rise to large diagonal that is free of disease. 3- leftcircumflex artery is a large artery and codominant. Free of disease. Small to medium OM1 has spontaneous dissection in the mid to the distal segment. 4- right coronary artery is very large and free of disease 5- LVEDP was 18 mm Hg and no gradient across aortic valve. 6-LV angiogram shows no wall motion abnormalities and normal ejection fraction 65%. 6- opening arterial pressure was 165/101 and closing pressure was 172/94 7- right femoral artery angiogram shows no significant disease in the right common femoral artery. Assessment and Plan Assessment and plan (1) Non-ST elevation myocardial infarction (NSTEMI): Code(s): I21.4 - Non-ST elevation (NSTEMI) myocardial infarction Status: Acute Plan Cardiac catheterization shows spontaneous coronary dissection involving small to medium size OM 1. No other obstructive CAD. This will be managed medically with aspirin Plavix. -recommend observation in the hospital here to make sure that there is no recurrence of chest pain.
--- NOTE | 2024-10-15 23:12 | WPDHPUPDATE1 ---
History and Physical Update Update Date/Time: 10/15/24 23:12 History and Physical has been reviewed, including an updated exam of the patient. There are NO changes in the patient's condition. Risks, benefits, and alternatives have been discussed and questions answered. Patient agrees to proceed with procedure.
[2024-10-16] VITALS (55 sets, daily range): BP systolic 127–160; BP diastolic 85–118; PULSE 83–118; RESP 12–25; TEMP 36.9; O2SAT 94–100
--- NOTE | 2024-10-16 00:56 | ECHO_ITS ---
Patient Info Name: Pat Andres Age: 39 years : 1985 Gender: Female Ht: 67 in Wt: 200 lbs BSA: 2.10 m2 HR: 92 bpm BP: 135 / 100 mmHg Technical Quality: Poor Exam Date: 10/16/2024 9:23 AM Exam Location: Echo Lab Patient Status: Inpatient Admit Date: 10/15/2024 Staff Ordering Physician: Christin Galdamez PA-C Contract Assistant: Theresa Calvo RDCS Attending Provider: Jeffrey Weiss MD Referring Physician: Rudolph FRANCES; Exam Type: CA echo dop color flow w con Study Info Indications - Elevated troponin Complete two-dimensional, color flow and Doppler transthoracic echocardiogram is performed with contrast to opacify the left ventricle and to improve the deliniation of the left ventricle endocardial borders. Contrast/Agitated Saline Contrast/Ag. Saline: Definity Amount: 2.00 ml Existing IV Access: Yes IV Access Condition: patent with no signs of infiltration Reason for Poor Study: patient body habitus Summary 1. There is normal biventricular size and systolic function. 2. There are no significant valvular abnormalities in this study. Left Ventricle The left ventricle is normal in size and systolic function. The left ventricular ejection fraction is visually estimated to be 60-65%. Right Ventricle The right ventricle is size and systolic function. Left Atria The left atrium is normal size. Right Atria The right atrium is normal size. Atrial Septum The atrial septum is not well visualized. Aortic Valve The aortic valve is trileaflet and opens well. There is no aortic regurgitation. Pulmonic Valve The pulmonic valve is not well visualized. Mitral Valve The mitral valve is normal. There is no mitral regurgitation. Tricuspid Valve The tricuspid valve is normal. There is trace tricuspid regurgitation. Pericardium/Pleural Pericardium is normal in appearance with no evidence for significant pericardial effusion. Inferior Vena Cava Inferior vena cava is not well visualized. Aorta The aortic root at the level of the sinus of Valsalva measures 2.9 cm in diameter. Left Ventricular Outflow Tract Name Value Normal LVOT 2D LVOT Diameter 1.81 cm LVOT Doppler LVOT Peak Gradient 2 mmHg LVOT Mean Gradient 1 mmHg LVOT VTI 14.88 cm LVOT VTI/AV VTI Ratio 1.18 LVOT Stroke Volume 38.41 ml LVOT CO 8.07 l/min LVOT CI 3.84 L/min/m2 Pulmonic Valve Name Value Normal PV Doppler PV Peak Gradient 4 mmHg Tricuspid Valve Name Value Normal TV Regurgitation Doppler TR Peak Velocity 219.01 cm/s TR Peak Gradient 19 mmHg Estimated PAP/RSVP RA Pressure 10 mmHg <=5 PA Systolic Pressure 29 mmHg <36 RV Systolic Pressure 29 mmHg <36 Aorta Name Value Normal Ascending Aorta Ao Root Diameter (MM) 2.93 cm Ao Root Diam Index (MM) 1.39 cm/m2 Aortic Valve Name Value Normal AV Doppler AV Peak Velocity 61.23 cm/s AV Peak Gradient 1 mmHg AV Mean Gradient 1 mmHg AV VTI 12.58 cm AV Area (Cont Eq VTI) 3.05 cm2 >=3.00 AV Area (Cont Eq Jatin) 2.95 cm2 AV Regurgitation 2D LVOT Area 2.58 cm2 Ventricles Name Value Normal LV Dimensions 2D/MM IVS Diastolic Thickness (2D) 0.95 cm 0.60-1.00 LVID Diastole (2D) 4.05 cm 3.80-5.20 LVIW Diastolic Thickness (2D) 0.91 cm 0.60-0.90 LVID Systole (2D) 2.78 cm 2.20-3.50 LVOT Diameter 1.81 cm LV Mass (2D Cubed) 116.76 g 67.00-162.00 LV Mass Index (2D Cubed) 0.01 g/cm2 0.00-0.01 Relative Wall Thickness (2D) 0.45 LV Fractional Shortening/Ejection Fraction 2D/MM LV Fractional Shortening (2D) 31 % 27-45 LV EF (2D Christoph) 60 % 54-74 LV Diastolic Volume (4C MOD) 63.70 ml LV EF (4C MOD) 68 % LV Diastolic Length (4C) 6.25 cm LV Systolic Length (4C) 4.87 cm LV Stroke Volume (4C MOD) 43.45 ml Atria Name Value Normal LA Dimensions LA Dimension (MM) 3.05 cm 2.70-3.80 LA Volume (4C A-L) 44.22 ml RA Dimensions RA Area (4C) 8.04 cm2 <=18.00 Report Signatures
[2024-10-16] MEDS: MORPHINE SULFATE (*CRX) 2 MG/ML INJ IV PUSH ×2 (01:00→04:43)
[2024-10-16 02:00] LABS: MRSA (PCR) NOT DETECTED (NOT DETECTE)
--- NOTE | 2024-10-16 04:09 | ECG_ITS ---
Test Date: 2024-10-16 04:37:43 Measurements Intervals Hazel Rate: 84 P: 46 TX: 163 QRS: 14 QRSD: 93 T: -7 QT: 355 QTc: 421 Interpretive Statements SINUS RHYTHM WITH SINUS ARRHYTHMIA ST ELEVATION IN THE HIGH LATERAL LEADS WITH RECIPROCAL DEPRESSIONS, CONSISTENT WITH ACUTE SD Compared to ECG 10/15/2024 23:35:47 LEAD REVERSAL NO LONGER PRESENT Electronically Signed On 10-17-2024 15:26:38 CDT by Denzel Amezcua M.D.
[2024-10-16] MEDS: NITROGLYCERIN SL 0.4 MG TABLET SUBLINGUAL (04:41)
[2024-10-16 04:54] LABS: Hematocrit 38.6 % (37.0-47.0); Hemoglobin 12.7 g/dL (12.0-15.0); Mean Corpuscular HGB Conc 32.9 g/dl (32-36); Mean Corpuscular Volume 94.1 fl (80-100); Mean Platelet Volume 9.2 fl (7.4-10.4); Platelet Count Result 335 k/mm3 (150-375); White Blood Count 11.8 K/mm3 (4.5-10.0)
[2024-10-16] MEDS: SODIUM CHLORIDE 0.9% IV 1,000 ML 125 ML IV CONT (04:57)
[2024-10-16] MEDS: NITROGLYCERIN/D5W 200 MCG/ML 50 MG/250 ML BTL IV CONT (04:58)
[2024-10-16] MEDS: ONDANSETRON INJ 4 MG/2 ML VIAL IV PUSH (04:59)
[2024-10-16 05:14] LABS: Iron 84 ug/dL (37-170)
[2024-10-16 05:18] LABS: Alanine Aminotransferase 57 U/L (6-35); Albumin Level 4.3 g/dL (3.5-5.1); Alkaline Phosphatase 87 U/L (38-126); Anion Gap 10 mmol/L (4-12); Aspartate Amino Transferase 61 U/L (14-36); Bilirubin,Total 0.9 mg/dL (0.2-1.3); Blood Urea Nitrogen 11 mg/dL (7-17); Calcium 8.5 mg/dL (8.4-10.2); Carbon Dioxide 24 mmol/L (22-30); Chloride 104 mmol/L (98-107); Estimated CRCL calculation 140 ml/min; Estimated Glomerular Filt Rate > 60; Glucose 105 mg/dL (65-110); Potassium 4.3 mmol/L (3.4-5.0); Sodium 138 mmol/L (137-145)
[2024-10-16 05:24] LABS: Percent Iron Saturation 21 % (20-50)
--- NOTE | 2024-10-16 05:43 | PC.NURSE ---
0440 Dr Sandoval called with pat reports of chest pain 05/04 and EKG changes similar to those pre cath. Dr Sandoval directed to start nitro drip and to order zofran for nausea.
--- NOTE | 2024-10-16 08:33 | P.CONIN_ITS ---
Assessment and Plan Assessment and plan (1) Spontaneous dissection of coronary artery: Code(s): I25.42 - Coronary artery dissection Status: Acute Assessment and Plan: Patient presented with chest pain with elevated troponin making diagnosis of NSTEMI. Cardiac catheterization showed spontaneous dissection in the mid to the distal segment. Thickness suggest negative and patient currently on her and menstrual cycle has been showed to be associated with SCAD. Patient also is on GLP1 agonist for weight loss Medical management Continue aspirin Plavix losartan beta-zhao Wean off nitroglycerin a possible. I have discontinue Nitro-Bid patch Echo is ordered and pending Cardiology following (2) Hypertension: Code(s): I10 - Essential (primary) hypertension Status: Acute Assessment and Plan: Appears poorly controlled. Continue losartan and metoprolol has been added. Wean off nitroglycerin infusion (3) Non-ST elevation myocardial infarction (NSTEMI): Code(s): I21.4 - Non-ST elevation (NSTEMI) myocardial infarction Status: Acute Assessment and Plan: See above Plan DVT prophylaxis - Lovenox Nutrition -diet ordered Code Status - Full Code Total Critical Care Time - 30 minutes Due to a high probability of clinically significant, life threatening deterioration, the patient required my highest level of preparedness to intervene emergently and I personally spent this critical care time directly and personally managing the patient. This critical care time included obtaining a history; examining the patient; pulse oximetry; ordering and review of studies; arranging urgent treatment with development of a management plan; evaluation of patient's response to treatment; frequent reassessment; and discussions with other providers. It was exclusive of separately billable procedures and treating other patients and teaching time. Please see Assessment and Plan section and the rest of the note for further information on patient assessment and treatment Supervisor Painting Department Consult Note Consult date: 10/16/24 Reason for consult: NSTEMI HPI: Pat Andres is a 39 year old female with past medical history of hypertension who presented to the emergency department on 10/15 with chief complaint of of chest pain. Workup in the ER showed elevated blood pressure Chest x-ray was without acute findings. Labs were significant for WBC count of 10.6, ALT 65, total protein 9.0, albumin 5.2. Initial troponin was negative and EKG showed sinus rhythm with ST T-wave changes in V4 through V6 and T-wave inversions in III and AVF which normalized on EKG done with her 3 hour troponin however the troponin jumped to 0.171. Once her troponin elevated she was given aspirin 324 mg and enoxaparin 1 milligram/kilogram. She was admitted to the IMU and Cardiology were consulted. Echocardiogram was ordered and was started was continued for blood pressure. Plan was to do left heart catheterization. Last night patient continued to have persistent chest hence patient was taken emergently to cardiac catheterization lab overnight. Cardiac catheterization showed no significant coronary disease but showed Small to medium OM1 has spontaneous dissection in the mid to the distal segment.. Postprocedure patient was admitted to ICU for further evaluation management. Plan was to continue medical management. Patient at this time has been nitroglycerin patch on and also is a nitroglycerin infusion at only 5 mics. She states her pain is significantly improved and she rates only at 1/10 severe. She had some nausea and vomiting earlier. She also has headache. She states her back is [place] from laying in bed. She denies any dyspnea fever cough abdominal pain diarrhea constipation. All the systems were reviewed and were negative. Patient states that she is currently on.. Her test was negative. She also is on GLP 1 and takes a compounded version for weight loss and she denies a diagnosis of diabetes. Her last injection was 1 week ago. Review of Systems 2 Review of Systems: All systems reviewed & are unremarkable except as noted in HPI and below (HPI) [facility] Past Medical History Medical History Hypertension Acute biliary pancreatitis (05/2022) Surgical History Surgical History History of breast augmentation History of abdominoplasty History of laparoscopic cholecystectomy (06/09/22) History of appendectomy Family History Family History Father Diabetes mellitus Heart disease Mother Hypertension Social History Social History Social History: Surrogate medical decision maker: Kyung Andres, sister ([phone]). Code status: Full code. Smoking status: Never smoker Alcohol intake: current Drinks per week: 1 Substance use: never Substance use type: does not use Do You Feel Safe in your Home?: Yes Lack of Transportation: No Lack of Food: Never True Current Housing: I Have Housing Concerned About Future Housing: No Difficulty Paying Gas/Electric Bills: No Difficulty Paying for Meds: No Currently Unemployed: No Education: Trade/Vocational Certificate Difficulty w/ Childcare or Family Care: No Living arrangements: with family Additional living arrangements comments: Lives in [place] with her boyfriend and 3 children aged 16, 13, and 3. 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 Spiritual care concerns: No Meds Home Medications and Allergies Home Medications ?Medication ?Instructions ?Recorded ?Confirmed ?Type losartan 50 mg tablet 50 mg PO BID 10/14/24 10/14/24 History Lactobacillus rhamnosus GG 20 See Rx Instructions PO .COMPLEX 10/15/24 10/15/24 History billion cell capsule (Probiotic Digestive Care) ibuprofen 200 mg tablet (Advil) 400 mg PO Q6H pain 10/15/24 10/15/24 History [id number] 18 mg-FA 400 1 tablet PO DAILY 10/15/24 10/15/24 History mcg-calcium 500 mg-vit K 50 mcg tablet (Women's Multivitamin) Allergies Allergy/AdvReac Type Severity Reaction Status Date / Time No Known Allergies Allergy Verified 06/22/22 13:20 Vital Signs Vital Signs - 24 hr 10/15/24 12:00 10/15/24 12:00 10/15/24 14:00 Temperature 36.9 C Pulse Rate 79 93 81 Respiratory Rate 14 Blood Pressure 106/61 Pulse Oximetry 98 Oxygen Delivery Oxygen Flow Rate 10/15/24 16:00 10/15/24 16:00 10/15/24 18:00 Temperature 36.5 C Pulse Rate 84 86 81 Respiratory Rate 14 Blood Pressure 113/75 Pulse Oximetry 98 Oxygen Delivery Oxygen Flow Rate 10/15/24 19:36 10/15/24 20:00 10/15/24 20:00 Temperature 36.9 C Pulse Rate 81 82 Respiratory Rate 18 Blood Pressure 111/71 Pulse Oximetry 98 100 Oxygen Delivery Nasal Cannula Oxygen Flow Rate 2 10/15/24 20:19 10/15/24 20:27 10/15/24 20:31 Temperature Pulse Rate 90 93 83 Respiratory Rate Blood Pressure 153/107 H 145/102 H Pulse Oximetry Oxygen Delivery Oxygen Flow Rate 10/15/24 20:33 10/15/24 21:06 10/15/24 22:00 Temperature Pulse Rate 91 102 H 87 Respiratory Rate 22 H Blood Pressure 132/90 167/95 H Pulse Oximetry 100 Oxygen Delivery Oxygen Flow Rate 10/15/24 22:14 10/15/24 23:37 10/15/24 23:45 Temperature 36.6 C Pulse Rate 83 90 92 Respiratory Rate 20 21 H 22 H Blood Pressure 158/103 H 147/93 H 145/99 H Pulse Oximetry 100 Oxygen Delivery Oxygen Flow Rate 10/16/24 00:00 10/16/24 00:00 10/16/24 00:00 Temperature 36.9 C 36.9 C Pulse Rate 91 90 91 Respiratory Rate 24 H 24 H Blood Pressure 132/95 H 132/95 H Pulse Oximetry 94 94 Oxygen Delivery Oxygen Flow Rate 10/16/24 00:16 10/16/24 00:30 10/16/24 01:00 Temperature 36.9 C Pulse Rate 83 84 85 Respiratory Rate 24 H 23 H 24 H Blood Pressure 134/91 H 136/96 H 135/91 H Pulse Oximetry 97 96 95 Oxygen Delivery Oxygen Flow Rate 10/16/24 01:30 10/16/24 02:00 10/16/24 02:00 Temperature Pulse Rate 87 90 90 Respiratory Rate 23 H 23 H Blood Pressure 127/86 135/88 Pulse Oximetry 96 95 Oxygen Delivery Oxygen Flow Rate 10/16/24 02:30 10/16/24 03:30 10/16/24 04:00 Temperature Pulse Rate 88 94 99 Respiratory Rate 23 H 23 H Blood Pressure 138/90 136/104 H Pulse Oximetry 95 95 Oxygen Delivery Oxygen Flow Rate 10/16/24 04:14 10/16/24 04:30 10/16/24 04:36 Temperature Pulse Rate 88 93 93 Respiratory Rate 22 H 20 12 Blood Pressure 130/118 H Pulse Oximetry 95 98 99 Oxygen Delivery Oxygen Flow Rate 10/16/24 04:58 10/16/24 05:00 10/16/24 05:15 Temperature Pulse Rate 100 96 96 Respiratory Rate Blood Pressure 160/110 H 151/99 H 150/106 H Pulse Oximetry Oxygen Delivery Oxygen Flow Rate 10/16/24 05:25 10/16/24 05:45 10/16/24 06:00 Temperature 36.9 C Pulse Rate 96 96 93 Respiratory Rate 20 Blood Pressure 146/103 H 146/103 H Pulse Oximetry 95 Oxygen Delivery Oxygen Flow Rate 10/16/24 06:07 10/16/24 06:10 10/16/24 06:19 Temperature Pulse Rate 95 96 92 Respiratory Rate 24 H Blood Pressure 141/101 H 141/101 H 135/100 H Pulse Oximetry 95 Oxygen Delivery Oxygen Flow Rate 10/16/24 06:44 Temperature Pulse Rate 94 Respiratory Rate 16 Blood Pressure 146/105 H Pulse Oximetry 96 Oxygen Delivery Oxygen Flow Rate Exam 2 Narrative: General: Pt is alert awake and in NAD Lungs/Chest: Trachea central Clear BS B/L, No crackles or wheezing. Cardiac: RRR. Normal S1 S2. No murmurs Circulation: Pedal pulses are intact and symmetrical. Abdomen: Normal bowel sounds.. Soft. NT. ND. Extremities: No clubbing, cyanosis or edema. Warm right groin cath site shows no swelling hematoma. : Lou in place Neurologic: Follows commands. Moves all 4 extremities PERRL AO x3 Skin: No Rash Results Labs 10/16/24 04:34 10/16/24 04:34 Labs: Short CBC 10/16/24 Range/Units 04:34 WBC 11.8 H (4.5-10.0) K/mm3 Hgb 12.7 (12.0-15.0) g/dL Hct 38.6 (37.0-47.0) % Plt Count 335 (150-375) k/mm3 [facility] 10/16/24 04:34 Sodium 138 Potassium 4.3 Chloride 104 Carbon Dioxide 24 BUN 11 Creatinine 0.54 L Glucose 105 Calcium 8.5 Liver Function 10/16/24 Range/Units 04:34 Total Bilirubin 0.9 (0.2-1.3) mg/dL AST 61 H (14-36) U/L ALT 57 H (6-35) U/L Alkaline Phosphatase 87 (38-126) U/L Albumin 4.3 (3.5-5.1) g/dL
[2024-10-16] MEDS: METOPROLOL TARTRATE 25 MG TABLET PO (09:11)
[2024-10-16] MEDS: LOSARTAN POTASSIUM 50 MG TABLET PO (09:11)
[2024-10-16] MEDS: PANTOPRAZOLE SODIUM IV 40 MG VIAL IV PUSH (09:11)
[2024-10-16] MEDS: CLOPIDOGREL BISULFATE 75 MG TABLET PO (09:11)
[2024-10-16] MEDS: ENOXAPARIN 40 MG/0.4 ML SYRINGE SUB-Q (09:11)
[2024-10-16] MEDS: ASPIRIN 81 MG CHEWABLE TABLET PO (09:11)
[2024-10-16] MEDS: PERFLUTREN LIPID MICROSPHERES 1.5 ML VIAL DILUTED TO 10 ML TOTAL VOLUME IV PUSH (09:50)
--- NOTE | 2024-10-16 11:17 | IVDEFINITY ---
Prior to administration of IV Definity the patient was educated on the risks and benefits of the imaging enhancing agent including potential adverse side effects. The patient verbalized understanding. Allergies were verified. No exclusion criteria were identified and at least one of the following inclusion criteria were met: 1) physician request, 2) patient technically difficult to image (per the [place] [employer] guidelines of two or more segments not discernable within the apical view), or 3) questionable left ventricular function. ?
--- NOTE | 2024-10-16 12:46 | PM.PNCARD ---
Progress Note: A&P Assessment and Plan (1) Non-ST elevation myocardial infarction (NSTEMI): Code(s): I21.4 - Non-ST elevation (NSTEMI) myocardial infarction Status: Acute (2) Hypertension: Code(s): I10 - Essential (primary) hypertension Status: Acute (3) Spontaneous dissection of coronary artery: Code(s): I25.42 - Coronary artery dissection Status: Acute Plan 39-year-old woman with hypertension presented with chest pain admitted for non ST elevation [place] to status on coronary angiography Non ST-elevation [place] -secondary to spontaneous coronary artery dissection -continue aspirin 81 mg p.o. daily and Plavix 75 p.o. daily Spontaneous coronary artery dissection -continue dual anti-platelet therapy -continue metoprolol succinate 50 mg p.o. daily and losartan 50 mg p.o. daily -goal systolic blood pressure less than 120 mm Hg and can increase losartan to 100 mg p.o. daily if needed Hypertension -continue Toprol and losartan Subjective Date/time seen: 10/16/24 12:46 Interval history: Chest pain improving. 10/02 currently. Review of Systems Cardiovascular: Cardiovascular: Reports as per HPI Respiratory: Respiratory: Reports as per HPI Exam Const: General: uncomfortable Eyes: EOM: EOMs intact bilaterally Neck: Neck: no JVD Resp: Effort & Inspection: normal respiratory effort Auscultation: clear to auscultation bilaterally Cardio: Rate: regular rate Rhythm: regular rhythm GI: GI Palp: Yes Soft to palpation Extrem: General: no pedal edema Objective Data Vital Signs Vital Signs: Vital Signs - 24 hr 10/15/24 14:00 10/15/24 16:00 10/15/24 16:00 Temperature 36.5 C Pulse Rate 81 84 86 Respiratory Rate 14 Blood Pressure 113/75 Pulse Oximetry 98 Oxygen Delivery Oxygen Flow Rate 10/15/24 18:00 10/15/24 19:36 10/15/24 20:00 Temperature 36.9 C Pulse Rate 81 81 Respiratory Rate 18 Blood Pressure 111/71 Pulse Oximetry 98 100 Oxygen Delivery Nasal Cannula Oxygen Flow Rate 2 10/15/24 20:00 10/15/24 20:19 10/15/24 20:27 Temperature Pulse Rate 82 90 93 Respiratory Rate Blood Pressure 153/107 H 145/102 H Pulse Oximetry Oxygen Delivery Oxygen Flow Rate 10/15/24 20:31 10/15/24 20:33 10/15/24 21:06 Temperature Pulse Rate 83 91 102 H Respiratory Rate 22 H Blood Pressure 132/90 167/95 H Pulse Oximetry 100 Oxygen Delivery Oxygen Flow Rate 10/15/24 22:00 10/15/24 22:14 10/15/24 23:37 Temperature 36.6 C Pulse Rate 87 83 90 Respiratory Rate 20 21 H Blood Pressure 158/103 H 147/93 H Pulse Oximetry 100 Oxygen Delivery Oxygen Flow Rate 10/15/24 23:45 10/16/24 00:00 10/16/24 00:00 Temperature 36.9 C Pulse Rate 92 91 90 Respiratory Rate 22 H 24 H Blood Pressure 145/99 H 132/95 H Pulse Oximetry 94 Oxygen Delivery Oxygen Flow Rate 10/16/24 00:00 10/16/24 00:16 10/16/24 00:30 Temperature 36.9 C Pulse Rate 91 83 84 Respiratory Rate 24 H 24 H 23 H Blood Pressure 132/95 H 134/91 H 136/96 H Pulse Oximetry 94 97 96 Oxygen Delivery Oxygen Flow Rate 10/16/24 01:00 10/16/24 01:30 10/16/24 02:00 Temperature 36.9 C Pulse Rate 85 87 90 Respiratory Rate 24 H 23 H Blood Pressure 135/91 H 127/86 Pulse Oximetry 95 96 Oxygen Delivery Oxygen Flow Rate 10/16/24 02:00 10/16/24 02:30 10/16/24 03:30 Temperature Pulse Rate 90 88 94 Respiratory Rate 23 H 23 H 23 H Blood Pressure 135/88 138/90 136/104 H Pulse Oximetry 95 95 95 Oxygen Delivery Oxygen Flow Rate 10/16/24 04:00 10/16/24 04:14 10/16/24 04:30 Temperature Pulse Rate 99 88 93 Respiratory Rate 22 H 20 Blood Pressure 130/118 H Pulse Oximetry 95 98 Oxygen Delivery Oxygen Flow Rate 10/16/24 04:36 10/16/24 04:58 10/16/24 05:00 Temperature Pulse Rate 93 100 96 Respiratory Rate 12 Blood Pressure 160/110 H 151/99 H Pulse Oximetry 99 Oxygen Delivery Oxygen Flow Rate 10/16/24 05:15 10/16/24 05:25 10/16/24 05:45 Temperature 36.9 C Pulse Rate 96 96 96 Respiratory Rate 20 Blood Pressure 150/106 H 146/103 H 146/103 H Pulse Oximetry 95 Oxygen Delivery Oxygen Flow Rate 10/16/24 06:00 10/16/24 06:07 10/16/24 06:10 Temperature Pulse Rate 93 95 96 Respiratory Rate 24 H Blood Pressure 141/101 H 141/101 H Pulse Oximetry 95 Oxygen Delivery Oxygen Flow Rate 10/16/24 06:19 10/16/24 06:44 10/16/24 08:00 Temperature Pulse Rate 92 94 95 Respiratory Rate 16 16 Blood Pressure 135/100 H 146/105 H Pulse Oximetry 96 96 Oxygen Delivery Room Air Oxygen Flow Rate 10/16/24 08:00 10/16/24 09:11 10/16/24 09:20 Temperature Pulse Rate 95 97 102 H Respiratory Rate Blood Pressure 152/105 H Pulse Oximetry Oxygen Delivery Oxygen Flow Rate 10/16/24 10:00 10/16/24 10:00 10/16/24 12:00 Temperature Pulse Rate 90 93 98 Respiratory Rate 25 H Blood Pressure 148/100 H Pulse Oximetry 95 Oxygen Delivery Oxygen Flow Rate 10/16/24 12:00 10/16/24 12:00 Temperature 36.9 C Pulse Rate 93 92 Respiratory Rate 19 15 Blood Pressure 146/109 H 146/111 H Pulse Oximetry 96 96 Oxygen Delivery Oxygen Flow Rate Intake/Output Intake/Output: Intake & Output 10/13/24 10/14/24 10/15/24 10/16/24 23:59 23:59 23:59 23:59 Intake Total 480 160.8 Output Total 600 Balance 480 -439.2 Meds/Results Medications: Active Medications Generic Name Dose Route Start Last Admin Trade Name Freq PRN Reason Stop Dose Admin Acetaminophen 650 mg 10/15/24 00:56 Acetaminophen 325 Mg Tablet PO Q6H PRN Mild Pain (1-3) or Fever Aspirin 81 mg 10/15/24 08:00 10/16/24 09:11 Aspirin 81 Mg Chewable Tablet PO 81 mg DAILY@0800 GEORGE Administration Clopidogrel Bisulfate 75 mg 10/16/24 09:00 10/16/24 09:11 Clopidogrel Bisulfate 75 Mg Tablet PO 75 mg QAM GEORGE Administration Enoxaparin Sodium 40 mg 10/16/24 09:00 10/16/24 09:11 Enoxaparin 40 Mg/0.4 Ml Syringe SUB-Q 40 mg DAILY GEORGE Administration Nitroglycerin/Dextrose 50 mg in 250 mls @ 0 mls/hr 10/16/24 04:09 10/16/24 09:20 Nitroglycerin In 5% Dextrose 50 Mg IV CONT 0 mcg/min .Q0M GEORGE 0 mls/hr Infusion Losartan Potassium 50 mg 10/16/24 09:00 10/16/24 09:11 Losartan Potassium 50 Mg Tablet PO 50 mg DAILY GEORGE Administration Metoprolol Succinate 50 mg 10/16/24 12:45 Metoprolol Succinate Ext Rel 50 Mg Tabcr PO QAM GEORGE Morphine Sulfate 2 mg 10/15/24 00:56 10/16/24 04:43 Morphine Sulfate (*Crx) 2 Mg/Ml Inj IV PUSH 2 mg Q4H PRN Administration Pain Rated 7-10 Nitroglycerin 0.4 mg 10/15/24 12:34 10/16/24 04:41 Nitroglycerin Sl 0.4 Mg Tablet SUBLINGUAL 0.4 mg Q5MIN PRN Administration Chest Pain Ondansetron HCl 4 mg 10/16/24 04:49 10/16/24 04:59 Ondansetron Inj 4 Mg/2 Ml Vial IV PUSH 4 mg Q4H PRN Administration Nausea And Vomiting Pantoprazole Sodium 40 mg 10/15/24 09:00 10/16/24 09:11 Pantoprazole Sodium Iv 40 Mg Vial IV PUSH 40 mg QAM GEORGE Administration Radiology Results: ITS Impressions Chest X-Ray 10/14/24 20:45 IMPRESSION: No active cardiopulmonary disease Labs Labs: Laboratory Results - last 24 hr 10/16/24 10/16/24 00:40 04:34 WBC 11.8 H RBC 4.10 L Hgb 12.7 Hct 38.6 MCV 94.1 MCH 31.0 MCHC 32.9 RDW 12.0 Plt Count 335 MPV 9.2 Sodium 138 Potassium 4.3 Chloride 104 Carbon Dioxide 24 Anion Gap 10 BUN 11 Creatinine 0.54 L Estim Creat Clear Calc 140 Estimated GFR > 60 Glucose 105 Calcium 8.5 Iron 84 TIBC 400 % Saturation 21 Total Bilirubin 0.9 AST 61 H ALT 57 H Alkaline Phosphatase 87 Total Protein 7.0 Albumin 4.3 Nasal MRSA (PCR) Not detected
--- NOTE | 2024-10-16 13:05 | P.PNIM_ITS ---
Progress Note: A&P Assessment and Plan (1) Hypertension: Code(s): I10 - Essential (primary) hypertension Status: Acute (2) Spontaneous dissection of coronary artery: Code(s): I25.42 - Coronary artery dissection Status: Acute Plan 39-year-old female with past medical history of hypertension presented with chest pain.In the ED: Blood pressure on arrival was 183/109 in the remainder of her vital signs were stable. Chest x-ray was without acute findings. Labs were significant for WBC count of 10.6, ALT 65, total protein 9.0, albumin 5.2. In itial troponin was negative and EKG showed sinus rhythm with ST T-wave changes in V4 through V6 and T-wave inversions in III and AVF which normalized on EKG done with her 3 hour troponin however the troponin jumped to 0.171. Cardiology was consulted. Was started on therapeutic Lovenox, underwent cardiac catheterization. Was found to have spontaneous coronary artery dissection. 1. NSTEMI: Secondary to spontaneous coronary artery dissection Continue tele monitoring Continue with aspirin, Plavix Appreciate cardiology help Blood pressure optimization Continue with Toprol, losartan Plan to increase losartan to 100 mg daily if blood pressure is not adequately controlled with 50 Goal blood pressure of less than 120 systolic Await echocardiogram 2. DVT prophylaxis: Lovenox 3. Code status: Full 4. Disposition: Pending improvement Time Spent With Patient Time: 39 minutes Subjective Date/time seen: 10/16/24 13:05 Interval history: Chest pain present but improved Review of Systems Review of Systems: All systems reviewed & are unremarkable except as noted in HPI and below Exam Narrative: HEENT: PERRL, sclerae nonicteric NECK: No JVD CHEST: Clear to auscultation. Normal effort. HEART: NL S1/S2, regular, no murmur ABDOMEN: BS+, soft, nontender, no mass, no bruits EXTREMITIES: No cyanosis, edema, or clubbing NEUROLOGIC: CN intact and symmetric to inspection. MUSCULOSKELETAL: Tone and strength symmetric. PSYCH: Alert. Oriented to person, place, and time. Objective Data Vital Signs Vital Signs: Vital Signs - 24 hr 10/15/24 14:00 10/15/24 16:00 10/15/24 16:00 Temperature 97.7 F Pulse Rate 81 84 86 Respiratory Rate 14 Blood Pressure 113/75 Pulse Oximetry 98 Oxygen Delivery Oxygen Flow Rate 10/15/24 18:00 10/15/24 19:36 10/15/24 20:00 Temperature 98.4 F Pulse Rate 81 81 Respiratory Rate 18 Blood Pressure 111/71 Pulse Oximetry 98 100 Oxygen Delivery Nasal Cannula Oxygen Flow Rate 2 10/15/24 20:00 10/15/24 20:19 10/15/24 20:27 Temperature Pulse Rate 82 90 93 Respiratory Rate Blood Pressure 153/107 H 145/102 H Pulse Oximetry Oxygen Delivery Oxygen Flow Rate 10/15/24 20:31 10/15/24 20:33 10/15/24 21:06 Temperature Pulse Rate 83 91 102 H Respiratory Rate 22 H Blood Pressure 132/90 167/95 H Pulse Oximetry 100 Oxygen Delivery Oxygen Flow Rate 10/15/24 22:00 10/15/24 22:14 10/15/24 23:37 Temperature 97.9 F Pulse Rate 87 83 90 Respiratory Rate 20 21 H Blood Pressure 158/103 H 147/93 H Pulse Oximetry 100 Oxygen Delivery Oxygen Flow Rate 10/15/24 23:45 10/16/24 00:00 10/16/24 00:00 Temperature 98.4 F Pulse Rate 92 91 90 Respiratory Rate 22 H 24 H Blood Pressure 145/99 H 132/95 H Pulse Oximetry 94 Oxygen Delivery Oxygen Flow Rate 10/16/24 00:00 10/16/24 00:16 10/16/24 00:30 Temperature 98.4 F Pulse Rate 91 83 84 Respiratory Rate 24 H 24 H 23 H Blood Pressure 132/95 H 134/91 H 136/96 H Pulse Oximetry 94 97 96 Oxygen Delivery Oxygen Flow Rate 10/16/24 01:00 10/16/24 01:30 10/16/24 02:00 Temperature 98.5 F Pulse Rate 85 87 90 Respiratory Rate 24 H 23 H Blood Pressure 135/91 H 127/86 Pulse Oximetry 95 96 Oxygen Delivery Oxygen Flow Rate 10/16/24 02:00 10/16/24 02:30 10/16/24 03:30 Temperature Pulse Rate 90 88 94 Respiratory Rate 23 H 23 H 23 H Blood Pressure 135/88 138/90 136/104 H Pulse Oximetry 95 95 95 Oxygen Delivery Oxygen Flow Rate 10/16/24 04:00 10/16/24 04:14 10/16/24 04:30 Temperature Pulse Rate 99 88 93 Respiratory Rate 22 H 20 Blood Pressure 130/118 H Pulse Oximetry 95 98 Oxygen Delivery Oxygen Flow Rate 10/16/24 04:36 10/16/24 04:58 10/16/24 05:00 Temperature Pulse Rate 93 100 96 Respiratory Rate 12 Blood Pressure 160/110 H 151/99 H Pulse Oximetry 99 Oxygen Delivery Oxygen Flow Rate 10/16/24 05:15 10/16/24 05:25 10/16/24 05:45 Temperature 98.5 F Pulse Rate 96 96 96 Respiratory Rate 20 Blood Pressure 150/106 H 146/103 H 146/103 H Pulse Oximetry 95 Oxygen Delivery Oxygen Flow Rate 10/16/24 06:00 10/16/24 06:07 10/16/24 06:10 Temperature Pulse Rate 93 95 96 Respiratory Rate 24 H Blood Pressure 141/101 H 141/101 H Pulse Oximetry 95 Oxygen Delivery Oxygen Flow Rate 10/16/24 06:19 10/16/24 06:44 10/16/24 08:00 Temperature Pulse Rate 92 94 95 Respiratory Rate 16 16 Blood Pressure 135/100 H 146/105 H Pulse Oximetry 96 96 Oxygen Delivery Room Air Oxygen Flow Rate 10/16/24 08:00 10/16/24 09:11 10/16/24 09:20 Temperature Pulse Rate 95 97 102 H Respiratory Rate Blood Pressure 152/105 H Pulse Oximetry Oxygen Delivery Oxygen Flow Rate 10/16/24 10:00 10/16/24 10:00 10/16/24 12:00 Temperature Pulse Rate 90 93 98 Respiratory Rate 25 H Blood Pressure 148/100 H Pulse Oximetry 95 Oxygen Delivery Oxygen Flow Rate 10/16/24 12:00 10/16/24 12:00 Temperature 98.4 F Pulse Rate 93 92 Respiratory Rate 19 15 Blood Pressure 146/109 H 146/111 H Pulse Oximetry 96 96 Oxygen Delivery Oxygen Flow Rate Intake/Output Intake/Output: Intake & Output 10/13/24 10/14/24 10/15/24 10/16/24 23:59 23:59 23:59 23:59 Intake Total 480 640.8 Output Total 1200 Balance 480 -559.2 Meds/Results Medications: Active Medications Generic Name Dose Route Start Last Admin Trade Name Freq PRN Reason Stop Dose Admin Acetaminophen 650 mg 10/15/24 00:56 Acetaminophen 325 Mg Tablet PO Q6H PRN Mild Pain (1-3) or Fever Aspirin 81 mg 10/15/24 08:00 10/16/24 09:11 Aspirin 81 Mg Chewable Tablet PO 81 mg DAILY@0800 [facility] Administration Clopidogrel Bisulfate 75 mg 10/16/24 09:00 10/16/24 09:11 Clopidogrel Bisulfate 75 Mg Tablet PO 75 mg QAM [facility] Administration Enoxaparin Sodium 40 mg 10/16/24 09:00 10/16/24 09:11 Enoxaparin 40 Mg/0.4 Ml Syringe SUB-Q 40 mg DAILY [facility] Administration Nitroglycerin/Dextrose 50 mg in 250 mls @ 0 mls/hr 10/16/24 04:09 10/16/24 09:20 Nitroglycerin In 5% Dextrose 50 Mg IV CONT 0 mcg/min .Q0M GEORGE 0 mls/hr Infusion Losartan Potassium 50 mg 10/16/24 09:00 10/16/24 09:11 Losartan Potassium 50 Mg Tablet PO 50 mg DAILY [facility] Administration Metoprolol Succinate 50 mg 10/16/24 12:45 Metoprolol Succinate Ext Rel 50 Mg Tabcr PO QAM [facility] Morphine Sulfate 2 mg 10/15/24 00:56 10/16/24 04:43 Morphine Sulfate (*Crx) 2 Mg/Ml Inj IV PUSH 2 mg Q4H PRN Administration Pain Rated 7-10 Nitroglycerin 0.4 mg 10/15/24 12:34 10/16/24 04:41 Nitroglycerin Sl 0.4 Mg Tablet SUBLINGUAL 0.4 mg Q5MIN PRN Administration Chest Pain Ondansetron HCl 4 mg 10/16/24 04:49 10/16/24 04:59 Ondansetron Inj 4 Mg/2 Ml Vial IV PUSH 4 mg Q4H PRN Administration Nausea And Vomiting Pantoprazole Sodium 40 mg 10/15/24 09:00 10/16/24 09:11 Pantoprazole Sodium Iv 40 Mg Vial IV PUSH 40 mg QAM [facility] Administration Radiology Results: ITS Impressions Chest X-Ray 10/14/24 20:45 IMPRESSION: No active cardiopulmonary disease Labs Labs: Laboratory Results - last 24 hr 10/16/24 10/16/24 00:40 04:34 WBC 11.8 H RBC 4.10 L Hgb 12.7 Hct 38.6 MCV 94.1 MCH 31.0 MCHC 32.9 RDW 12.0 Plt Count 335 MPV 9.2 Sodium 138 Potassium 4.3 Chloride 104 Carbon Dioxide 24 Anion Gap 10 BUN 11 Creatinine 0.54 L Estim Creat Clear Calc 140 Estimated GFR > 60 Glucose 105 Calcium 8.5 Iron 84 TIBC 400 % Saturation 21 Total Bilirubin 0.9 AST 61 H ALT 57 H Alkaline Phosphatase 87 Total Protein 7.0 Albumin 4.3 Nasal MRSA (PCR) Not detected Quality VTE Prophylaxis VTE prophylaxis: pharmacologic ordered
[2024-10-16] MEDS: METOPROLOL SUCCINATE EXT REL 50 MG TABCR PO (13:25)
[2024-10-16] MEDS: ACETAMINOPHEN 325 MG TABLET 650 MG PO (22:09)
[2024-10-17] VITALS (47 sets, daily range): BP systolic 98–119; BP diastolic 65–85; PULSE 76–131; RESP 0–23; TEMP 36.5–36.9; O2SAT 96–99
[2024-10-17 04:29] LABS: Basophils Absolute Auto 0.1 K/mm3 (0.0-0.1); Basophils Percent Auto 0.6 % (0.2-1.2); Eosinophils Absolute Auto 0.2 K/mm3 (0-0.3); Eosinophils Percent Auto 1.9 % (0-4.4); Hemoglobin 12.8 g/dL (12.0-15.0); Immature Granulocyte Absolute 0.02 K/mm3 (0.00-0.031); Immature Granulocyte Percent A 0.2 % (0-0.5); Lymphocytes Absolute Auto 2.33 K/mm3 (0.9-3.2); Mean Corpuscular HGB Conc 33.7 g/dl (32-36); Mean Platelet Volume 9.1 fl (7.4-10.4); Monocytes Absolute Auto 0.7 K/mm3 (0.1-0.6); Monocytes Percent Auto 7.9 % (2.6-8.5); Neutrophils Absolute Auto 5.7 K/mm3 (1.3-6.7); Neutrophils Percent Auto 63.4 % (45.5-73.1); Platelet Count Result 327 k/mm3 (150-375); Red Blood Count 4.13 M/mm3 (4.2-5.4); Red Cell Distribution Width 12.2 % (11.5-14.5)
[2024-10-17 04:44] LABS: Anion Gap 9 mmol/L (4-12); Blood Urea Nitrogen 9 mg/dL (7-17); Calcium 8.7 mg/dL (8.4-10.2); Carbon Dioxide 24 mmol/L (22-30); Chloride 105 mmol/L (98-107); Estimated CRCL calculation 137 ml/min; Estimated Glomerular Filt Rate > 60; Glucose 113 mg/dL (65-110); Potassium 3.5 mmol/L (3.4-5.0); Sodium 138 mmol/L (137-145)
[2024-10-17] MEDS: ACETAMINOPHEN 325 MG TABLET 650 MG PO (05:33)
[2024-10-17] MEDS: CLOPIDOGREL BISULFATE 75 MG TABLET PO (08:10)
[2024-10-17] MEDS: ENOXAPARIN 40 MG/0.4 ML SYRINGE SUB-Q (08:11)
[2024-10-17] MEDS: PANTOPRAZOLE SODIUM IV 40 MG VIAL IV PUSH (08:11)
[2024-10-17] MEDS: POTASSIUM CHLORIDE 20 MEQ ER TABLET 40 MEQ PO (08:11)
[2024-10-17] MEDS: ASPIRIN 81 MG CHEWABLE TABLET PO (08:11)
--- NOTE | 2024-10-17 09:06 | P.PNINT_ITS ---
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 Cardiac catheterization showed spontaneous dissection in the mid to the distal segment. Thickness suggest negative and patient currently on her and menstrual cycle has been showed to be associated with SCAD. Patient also is on GLP1 agonist for weight loss Patient now chest pain-free. Continue Medical management Continue aspirin Plavix losartan beta-zhao Echo reviewed and was normal Cardiology following and further management per Cardiology (2) Hypertension: Code(s): I10 - Essential (primary) hypertension Status: Acute Assessment and Plan: Appears poorly controlled. Continue losartan and metoprolol has been added. Improved (3) Non-ST elevation myocardial infarction (NSTEMI): Code(s): I21.4 - Non-ST elevation (NSTEMI) myocardial infarction Status: Acute Assessment and Plan: See above (4) Electrolyte abnormality: Code(s): E87.8 - Other disorders of electrolyte and fluid balance, not elsewhere classified Status: Acute Assessment and Plan: Replace low potassium Plan DVT prophylaxis - Lovenox Nutrition -diet ordered Code Status - Full Code Transfer out of ICU today Subjective Date/time seen: 10/17/24 Overnight events reviewed. Afebrile. She denies any complaints states her chest pain is completely resolved and she has not had any chest pain since yesterday morning. She is off all infusions. She is afebrile she is tolerating p.o. diet. Otherwise and the stable. Patient denies fever, chest pain, shortness of breath, cough, nausea vomiting, abdominal pain,, diarrhea, headache or constipation. All other systems were reviewed and were negative Review of Systems Review of Systems: All systems reviewed & are unremarkable except as noted in HPI and below (HPI) Exam Narrative: General: Pt is alert awake and in NAD Lungs/Chest: Trachea central Clear BS B/L, No crackles or wheezing. Cardiac: RRR. Normal S1 S2. No murmurs Circulation: Pedal pulses are intact and symmetrical. Abdomen: Normal bowel sounds.. Soft. NT. ND. Extremities: No clubbing, cyanosis or edema. Warm right groin cath site shows no swelling hematoma. : Lou in place Neurologic: Follows commands. Moves all 4 extremities PERRL AO x3 Skin: No Rash Objective Data Vital Signs Vital Signs: Vital Signs - 24 hr 10/16/24 09:11 10/16/24 09:20 10/16/24 10:00 Temperature Pulse Rate 97 102 H 90 Respiratory Rate 25 H Blood Pressure 152/105 H 148/100 H Pulse Oximetry 95 Oxygen Delivery 10/16/24 10:00 10/16/24 12:00 10/16/24 12:00 Temperature Pulse Rate 93 98 93 Respiratory Rate 19 Blood Pressure 146/109 H Pulse Oximetry 96 Oxygen Delivery 10/16/24 12:00 10/16/24 12:00 10/16/24 13:17 Temperature 36.9 C Pulse Rate 92 85 87 Respiratory Rate 15 20 25 H Blood Pressure 146/111 H 143/98 H Pulse Oximetry 96 96 97 Oxygen Delivery Room Air Room Air 10/16/24 13:25 10/16/24 14:00 10/16/24 14:00 Temperature Pulse Rate 92 84 95 Respiratory Rate 22 H Blood Pressure 127/86 Pulse Oximetry 96 Oxygen Delivery 10/16/24 16:00 10/16/24 16:00 10/16/24 16:00 Temperature 36.9 C Pulse Rate 87 86 89 Respiratory Rate 23 H 25 H Blood Pressure 134/93 H Pulse Oximetry 97 97 Oxygen Delivery Room Air 10/16/24 18:00 10/16/24 18:00 10/16/24 20:00 Temperature Pulse Rate 95 97 100 Respiratory Rate 24 H 21 H Blood Pressure 153/104 H Pulse Oximetry 100 100 Oxygen Delivery Room Air 10/16/24 20:00 10/16/24 20:00 10/16/24 20:00 Temperature 36.9 C Pulse Rate 100 97 100 Respiratory Rate 21 H Blood Pressure 136/90 136/90 Pulse Oximetry 98 Oxygen Delivery 10/16/24 20:00 10/16/24 20:01 10/16/24 20:15 Temperature Pulse Rate 95 96 91 Respiratory Rate 18 14 20 Blood Pressure 142/100 H Pulse Oximetry 97 98 98 Oxygen Delivery 10/16/24 20:36 10/16/24 20:45 10/16/24 20:51 Temperature Pulse Rate 95 95 100 Respiratory Rate 24 H 22 H 21 H Blood Pressure 136/90 Pulse Oximetry 98 98 98 Oxygen Delivery 10/16/24 21:00 10/16/24 21:00 10/16/24 21:01 Temperature Pulse Rate 93 99 101 H Respiratory Rate 19 15 14 Blood Pressure 137/98 H 137/98 H Pulse Oximetry 98 98 97 Oxygen Delivery 10/16/24 21:15 10/16/24 21:30 10/16/24 21:45 Temperature Pulse Rate 83 86 89 Respiratory Rate Blood Pressure Pulse Oximetry 97 97 97 Oxygen Delivery 10/16/24 22:00 10/16/24 22:01 10/16/24 22:15 Temperature Pulse Rate 101 H 103 H Respiratory Rate 24 H Blood Pressure Pulse Oximetry 95 97 Oxygen Delivery 10/16/24 22:30 10/16/24 22:45 10/16/24 22:50 Temperature Pulse Rate 97 101 H 98 Respiratory Rate 16 16 19 Blood Pressure 132/93 H Pulse Oximetry 99 99 99 Oxygen Delivery 10/16/24 22:51 10/16/24 23:00 10/16/24 23:01 Temperature Pulse Rate 103 H 97 99 Respiratory Rate 25 H 24 H 22 H Blood Pressure 132/93 H 130/85 Pulse Oximetry 98 99 98 Oxygen Delivery 10/16/24 23:15 10/16/24 23:30 10/16/24 23:55 Temperature Pulse Rate 105 H 118 H 100 Respiratory Rate 22 H 21 H 13 Blood Pressure Pulse Oximetry 96 98 96 Oxygen Delivery 10/17/24 00:00 10/17/24 00:00 10/17/24 00:00 Temperature 36.9 C Pulse Rate 98 96 Respiratory Rate 21 H Blood Pressure 119/85 Pulse Oximetry 96 97 Oxygen Delivery Room Air 10/17/24 00:00 10/17/24 00:00 10/17/24 00:01 Temperature Pulse Rate 96 96 94 Respiratory Rate 16 19 Blood Pressure 119/85 119/85 Pulse Oximetry 96 96 Oxygen Delivery 10/17/24 00:15 10/17/24 00:30 10/17/24 00:45 Temperature Pulse Rate 97 94 96 Respiratory Rate 16 12 Blood Pressure Pulse Oximetry 96 96 96 Oxygen Delivery 10/17/24 01:00 10/17/24 01:01 10/17/24 01:15 Temperature Pulse Rate 97 97 97 Respiratory Rate 16 11 L 0 L Blood Pressure 116/80 Pulse Oximetry 97 97 97 Oxygen Delivery 10/17/24 01:30 10/17/24 01:45 10/17/24 02:00 Temperature Pulse Rate 99 95 97 Respiratory Rate 12 0 L Blood Pressure Pulse Oximetry 96 98 Oxygen Delivery 10/17/24 02:00 10/17/24 02:00 10/17/24 02:01 Temperature Pulse Rate 97 95 95 Respiratory Rate 18 14 8 L Blood Pressure 116/84 116/84 Pulse Oximetry 97 97 97 Oxygen Delivery 10/17/24 02:15 10/17/24 02:30 10/17/24 02:45 Temperature Pulse Rate 95 92 90 Respiratory Rate 19 17 18 Blood Pressure Pulse Oximetry 97 97 97 Oxygen Delivery 10/17/24 03:00 10/17/24 03:01 10/17/24 03:15 Temperature Pulse Rate 88 76 90 Respiratory Rate 21 H 16 23 H Blood Pressure 99/65 L Pulse Oximetry 97 96 96 Oxygen Delivery 10/17/24 03:30 10/17/24 03:45 10/17/24 04:00 Temperature Pulse Rate 91 94 86 Respiratory Rate 22 H 21 H Blood Pressure Pulse Oximetry 97 97 Oxygen Delivery 10/17/24 04:00 10/17/24 04:00 10/17/24 04:00 Temperature Pulse Rate 88 88 85 Respiratory Rate 19 17 Blood Pressure 102/74 102/74 102/74 Pulse Oximetry 97 97 Oxygen Delivery 10/17/24 04:01 10/17/24 04:15 10/17/24 04:30 Temperature Pulse Rate 89 89 96 Respiratory Rate 19 20 21 H Blood Pressure Pulse Oximetry 97 97 98 Oxygen Delivery 10/17/24 04:45 10/17/24 05:00 10/17/24 05:01 Temperature Pulse Rate 87 90 91 Respiratory Rate 21 H 19 19 Blood Pressure 114/82 Pulse Oximetry 97 97 97 Oxygen Delivery 10/17/24 05:15 10/17/24 05:30 10/17/24 05:30 Temperature Pulse Rate 91 96 Respiratory Rate 21 H 18 Blood Pressure Pulse Oximetry 96 98 99 Oxygen Delivery Room Air 10/17/24 05:45 10/17/24 06:00 10/17/24 06:06 Temperature Pulse Rate 82 87 86 Respiratory Rate 0 L Blood Pressure 107/74 Pulse Oximetry 97 Oxygen Delivery 10/17/24 07:00 10/17/24 08:20 10/17/24 09:00 Temperature 36.6 C Pulse Rate 89 82 100 Respiratory Rate 19 20 Blood Pressure 103/69 108/66 Pulse Oximetry 99 98 Oxygen Delivery Intake/Output Intake/Output: Intake & Output 10/14/24 10/15/24 10/16/24 10/17/24 23:59 23:59 23:59 23:59 Intake Total 480 880.8 1000 Output Total 3100 Balance 480 -2219.2 1000 Meds/Results Medications: Active Medications Generic Name Dose Route Start Last Admin Trade Name Freq PRN Reason Stop Dose Admin Acetaminophen 650 mg 10/15/24 00:56 10/17/24 05:33 Acetaminophen 325 Mg Tablet PO 650 mg Q6H PRN Administration Mild Pain (1-3) or Fever Aspirin 81 mg 10/15/24 08:00 10/17/24 08:11 Aspirin 81 Mg Chewable Tablet PO 81 mg DAILY@0800 [facility] Administration Clopidogrel Bisulfate 75 mg 10/16/24 09:00 10/17/24 08:10 Clopidogrel Bisulfate 75 Mg Tablet PO 75 mg QAM [facility]ORGE Administration Enoxaparin Sodium 40 mg 10/16/24 09:00 10/17/24 08:11 Enoxaparin 40 Mg/0.4 Ml Syringe SUB-Q 40 mg DAILY [facility]ORGE Administration Losartan Potassium 50 mg 10/16/24 09:00 10/17/24 08:19 Losartan Potassium 50 Mg Tablet PO Not Given DAILY GEORGE Metoprolol Succinate 50 mg 10/16/24 12:45 10/17/24 08:20 Metoprolol Succinate Ext Rel 50 Mg Tabcr PO Not Given QAM [facility] Morphine Sulfate 2 mg 10/15/24 00:56 10/16/24 04:43 Morphine Sulfate (*Crx) 2 Mg/Ml Inj IV PUSH 2 mg Q4H PRN Administration Pain Rated 7-10 Nitroglycerin 0.4 mg 10/15/24 12:34 10/16/24 04:41 Nitroglycerin Sl 0.4 Mg Tablet SUBLINGUAL 0.4 mg Q5MIN PRN Administration Chest Pain Ondansetron HCl 4 mg 10/16/24 04:49 10/16/24 04:59 Ondansetron Inj 4 Mg/2 Ml Vial IV PUSH 4 mg Q4H PRN Administration Nausea And Vomiting Pantoprazole Sodium 40 mg 10/15/24 09:00 10/17/24 08:11 Pantoprazole Sodium Iv 40 Mg Vial IV PUSH 40 mg QAM [facility]OR[facility] Administration Radiology Results: ITS Impressions Chest X-Ray 10/14/24 20:45 IMPRESSION: No active cardiopulmonary disease Labs Labs: Laboratory Results - last 24 hr 10/17/24 04:23 WBC 9.0 RBC 4.13 L Hgb 12.8 Hct 38.0 MCV 92.0 MCH 31.0 MCHC 33.7 RDW 12.2 Plt Count 327 MPV 9.1 Immature Gran % (Auto) 0.2 Neut % (Auto) 63.4 Lymph % (Auto) 26.0 [place] % (Auto) 7.9 Eos % (Auto) 1.9 Baso % (Auto) 0.6 Lymph # (Auto) 2.33 [place] # (Auto) 0.7 H Eos # (Auto) 0.2 Baso # (Auto) 0.1 Abs Immat Gran (auto) 0.02 Absolute Neuts (auto) 5.7 Absolute Nucleated RBC 0.000 Nucleated RBC % 0.0 Sodium 138 Potassium 3.5 Chloride 105 Carbon Dioxide 24 Anion Gap 9 BUN 9 Creatinine 0.56 L Estim Creat Clear Calc 137 Estimated GFR > 60 Glucose 113 H Calcium 8.7 Quality VTE Prophylaxis VTE prophylaxis: pharmacologic ordered
[2024-10-17] MEDS: METOPROLOL SUCCINATE EXT REL 50 MG TABCR PO (10:43)
[2024-10-17] MEDS: LOSARTAN POTASSIUM 50 MG TABLET PO (10:44)
--- NOTE | 2024-10-17 11:18 | P.PNCA_ITS ---
Progress Note: A&P Assessment and Plan (1) Spontaneous dissection of coronary artery: Code(s): I25.42 - Coronary artery dissection Status: Acute Plan 1. Spontaneous coronary artery dissection (SCAD). Initially admitted with NST BRANDON, however, subsequently developed subtle ST elevations in the high lateral leads with reciprocal depressions. Emergent LHC showed SCAD of OM1. Echocardiogram normal. 2. Hypertension PLAN: -Continue ASA, Plavix. -Continue Losartan, Metoprolol. Goal SBP <120mmHg. Okay to transfer out of ICU. Recommendations and plan discussed with ICU Physician. Subjective Date/time seen: 10/17/24 11:18 Interval history: Reason for visit: NSTEMI HPI: We are consulted for NSTEMI. Pat is a 39 year old female with hypertension who presented with chest pain. She was showering yesterday when she developed acute substernal chest pressure, felt short of breath with it. Got out of the shower, resolved after a few minutes. Later on in the day, she was playing with her kid at a playground and redeveloped substernal chest pressure. Lasted for about 45 minutes. No prior history of chest pain in the past. No prior cardiac history. No recent illnesses. Reports her father has heart disease, but does not know the specific details regarding it. No tobacco, marijuana use. She is currently chest pain free. Initial troponin was negative, however, increased to 0.438. CXR without acute findings. Initial EKG shows sinus rhythm, T-wave inversions in the inferolateral leads concerning for ischemia. Second EKG shows improvement in the inferolateral T-waves, however, T wave abnormality in the high lateral leads, which were not present on the first EKG. Third EKG unchanged compared to second one. Fourth EKG remains stable. Date of service 10/16: Chest pain improving. 10/02 currently. Date of service 10/17: Chest pain free now. Tachycardic this morning (had received Metoprolol late), feels okay. Review of Systems Review of Systems: All systems reviewed & are unremarkable except as noted in HPI and below (HPI) Exam Const: General: no acute distress HENMT: Mouth: Yes moist mucous membranes Eyes: General: appearance normal, both eyes and all related structures Sclera: sclerae normal Resp: Effort & Inspection: normal respiratory effort Cardio: Rate: tachycardic Rhythm: regular rhythm Heart sounds: no murmurs Skin: General skin exam: normal color Neuro: Speech: normal speech Psych: Mental Status: mental status grossly normal Affect: normal affect Objective Data Vital Signs Vital Signs: Vital Signs - 24 hr 10/16/24 12:00 10/16/24 12:00 10/16/24 12:00 Temperature 36.9 C Pulse Rate 98 93 92 Respiratory Rate 19 15 Blood Pressure 146/109 H 146/111 H Pulse Oximetry 96 96 Oxygen Delivery 10/16/24 12:00 10/16/24 13:17 10/16/24 13:25 Temperature Pulse Rate 85 87 92 Respiratory Rate 20 25 H Blood Pressure 143/98 H Pulse Oximetry 96 97 Oxygen Delivery Room Air Room Air 10/16/24 14:00 10/16/24 14:00 10/16/24 16:00 Temperature 36.9 C Pulse Rate 84 95 87 Respiratory Rate 22 H 23 H Blood Pressure 127/86 134/93 H Pulse Oximetry 96 97 Oxygen Delivery 10/16/24 16:00 10/16/24 16:00 10/16/24 18:00 Temperature Pulse Rate 86 89 95 Respiratory Rate 25 H Blood Pressure Pulse Oximetry 97 Oxygen Delivery Room Air 10/16/24 18:00 10/16/24 20:00 10/16/24 20:00 Temperature 36.9 C Pulse Rate 97 100 100 Respiratory Rate 24 H 21 H 21 H Blood Pressure 153/104 H 136/90 Pulse Oximetry 100 100 98 Oxygen Delivery Room Air 10/16/24 20:00 10/16/24 20:00 10/16/24 20:00 Temperature Pulse Rate 97 100 95 Respiratory Rate 18 Blood Pressure 136/90 142/100 H Pulse Oximetry 97 Oxygen Delivery 10/16/24 20:01 10/16/24 20:15 10/16/24 20:36 Temperature Pulse Rate 96 91 95 Respiratory Rate 14 20 24 H Blood Pressure Pulse Oximetry 98 98 98 Oxygen Delivery 10/16/24 20:45 10/16/24 20:51 10/16/24 21:00 Temperature Pulse Rate 95 100 93 Respiratory Rate 22 H 21 H 19 Blood Pressure 136/90 137/98 H Pulse Oximetry 98 98 98 Oxygen Delivery 10/16/24 21:00 10/16/24 21:01 10/16/24 21:15 Temperature Pulse Rate 99 101 H 83 Respiratory Rate 15 14 Blood Pressure 137/98 H Pulse Oximetry 98 97 97 Oxygen Delivery 10/16/24 21:30 10/16/24 21:45 10/16/24 22:00 Temperature Pulse Rate 86 89 101 H Respiratory Rate Blood Pressure Pulse Oximetry 97 97 Oxygen Delivery 10/16/24 22:01 10/16/24 22:15 10/16/24 22:30 Temperature Pulse Rate 103 H 97 Respiratory Rate 24 H 16 Blood Pressure Pulse Oximetry 95 97 99 Oxygen Delivery 10/16/24 22:45 10/16/24 22:50 10/16/24 22:51 Temperature Pulse Rate 101 H 98 103 H Respiratory Rate 16 19 25 H Blood Pressure 132/93 H 132/93 H Pulse Oximetry 99 99 98 Oxygen Delivery 10/16/24 23:00 10/16/24 23:01 10/16/24 23:15 Temperature Pulse Rate 97 99 105 H Respiratory Rate 24 H 22 H 22 H Blood Pressure 130/85 Pulse Oximetry 99 98 96 Oxygen Delivery 10/16/24 23:30 10/16/24 23:55 10/17/24 00:00 Temperature Pulse Rate 118 H 100 98 Respiratory Rate 21 H 13 Blood Pressure Pulse Oximetry 98 96 Oxygen Delivery 10/17/24 00:00 10/17/24 00:00 10/17/24 00:00 Temperature 36.9 C Pulse Rate 96 96 Respiratory Rate 21 H Blood Pressure 119/85 119/85 Pulse Oximetry 96 97 Oxygen Delivery Room Air 10/17/24 00:00 10/17/24 00:01 10/17/24 00:15 Temperature Pulse Rate 96 94 97 Respiratory Rate 16 19 16 Blood Pressure 119/85 Pulse Oximetry 96 96 96 Oxygen Delivery 10/17/24 00:30 10/17/24 00:45 10/17/24 01:00 Temperature Pulse Rate 94 96 97 Respiratory Rate 12 16 Blood Pressure 116/80 Pulse Oximetry 96 96 97 Oxygen Delivery 10/17/24 01:01 10/17/24 01:15 10/17/24 01:30 Temperature Pulse Rate 97 97 99 Respiratory Rate 11 L 0 L 12 Blood Pressure Pulse Oximetry 97 97 96 Oxygen Delivery 10/17/24 01:45 10/17/24 02:00 10/17/24 02:00 Temperature Pulse Rate 95 97 97 Respiratory Rate 0 L 18 Blood Pressure 116/84 Pulse Oximetry 98 97 Oxygen Delivery 10/17/24 02:00 10/17/24 02:01 10/17/24 02:15 Temperature Pulse Rate 95 95 95 Respiratory Rate 14 8 L 19 Blood Pressure 116/84 Pulse Oximetry 97 97 97 Oxygen Delivery 10/17/24 02:30 10/17/24 02:45 10/17/24 03:00 Temperature Pulse Rate 92 90 88 Respiratory Rate 17 18 21 H Blood Pressure 99/65 L Pulse Oximetry 97 97 97 Oxygen Delivery 10/17/24 03:01 10/17/24 03:15 10/17/24 03:30 Temperature Pulse Rate 76 90 91 Respiratory Rate 16 23 H 22 H Blood Pressure Pulse Oximetry 96 96 97 Oxygen Delivery 10/17/24 03:45 10/17/24 04:00 10/17/24 04:00 Temperature Pulse Rate 94 86 88 Respiratory Rate 21 H 19 Blood Pressure 102/74 Pulse Oximetry 97 97 Oxygen Delivery 10/17/24 04:00 10/17/24 04:00 10/17/24 04:01 Temperature Pulse Rate 88 85 89 Respiratory Rate 17 19 Blood Pressure 102/74 102/74 Pulse Oximetry 97 97 Oxygen Delivery 10/17/24 04:15 10/17/24 04:30 10/17/24 04:45 Temperature Pulse Rate 89 96 87 Respiratory Rate 20 21 H 21 H Blood Pressure Pulse Oximetry 97 98 97 Oxygen Delivery 10/17/24 05:00 10/17/24 05:01 10/17/24 05:15 Temperature Pulse Rate 90 91 91 Respiratory Rate 19 19 21 H Blood Pressure 114/82 Pulse Oximetry 97 97 96 Oxygen Delivery 10/17/24 05:30 10/17/24 05:30 10/17/24 05:45 Temperature Pulse Rate 96 82 Respiratory Rate 18 0 L Blood Pressure Pulse Oximetry 98 99 97 Oxygen Delivery Room Air 10/17/24 06:00 10/17/24 06:06 10/17/24 07:00 Temperature 36.6 C Pulse Rate 87 86 89 Respiratory Rate 19 Blood Pressure 107/74 103/69 Pulse Oximetry 99 Oxygen Delivery 10/17/24 08:00 10/17/24 09:00 10/17/24 10:00 Temperature Pulse Rate 87 100 94 Respiratory Rate 20 Blood Pressure 108/66 Pulse Oximetry 98 Oxygen Delivery 10/17/24 10:43 10/17/24 11:00 Temperature Pulse Rate 131 H 125 H Respiratory Rate 15 Blood Pressure 108/80 Pulse Oximetry 97 Oxygen Delivery Intake/Output Intake/Output: Intake & Output 10/14/24 10/15/24 10/16/24 10/17/24 23:59 23:59 23:59 23:59 Intake Total 480 880.8 1360 Output Total 3100 350 Balance 480 -2219.2 1010 Meds/Results Medications: Active Medications Generic Name Dose Route Start Last Admin Trade Name Freq PRN Reason Stop Dose Admin Acetaminophen 650 mg 10/15/24 00:56 10/17/24 05:33 Acetaminophen 325 Mg Tablet PO 650 mg Q6H PRN Administration Mild Pain (1-3) or Fever Aspirin 81 mg 10/15/24 08:00 10/17/24 08:11 Aspirin 81 Mg Chewable Tablet PO 81 mg DAILY@0800 GEORGE Administration Clopidogrel Bisulfate 75 mg 10/16/24 09:00 10/17/24 08:10 Clopidogrel Bisulfate 75 Mg Tablet PO 75 mg QAM [facility] Administration Enoxaparin Sodium 40 mg 10/16/24 09:00 10/17/24 08:11 Enoxaparin 40 Mg/0.4 Ml Syringe SUB-Q 40 mg DAILY GEORGE Administration Losartan Potassium 50 mg 10/16/24 09:00 10/17/24 10:44 Losartan Potassium 50 Mg Tablet PO 50 mg DAILY GEORGE Administration Metoprolol Succinate 50 mg 10/16/24 12:45 10/17/24 10:43 Metoprolol Succinate Ext Rel 50 Mg Tabcr PO 50 mg QAM GEORGE Administration Morphine Sulfate 2 mg 10/15/24 00:56 10/16/24 04:43 Morphine Sulfate (*Crx) 2 Mg/Ml Inj IV PUSH 2 mg Q4H PRN Administration Pain Rated 7-10 Nitroglycerin 0.4 mg 10/15/24 12:34 10/16/24 04:41 Nitroglycerin Sl 0.4 Mg Tablet SUBLINGUAL 0.4 mg Q5MIN PRN Administration Chest Pain Ondansetron HCl 4 mg 10/16/24 04:49 10/16/24 04:59 Ondansetron Inj 4 Mg/2 Ml Vial IV PUSH 4 mg Q4H PRN Administration Nausea And Vomiting Pantoprazole Sodium 40 mg 10/15/24 09:00 10/17/24 08:11 Pantoprazole Sodium Iv 40 Mg Vial IV PUSH 40 mg QAM GEORGE Administration Radiology Results: ITS Impressions Chest X-Ray 10/14/24 20:45 IMPRESSION: No active cardiopulmonary disease Labs Labs: Laboratory Results - last 24 hr 10/17/24 04:23 WBC 9.0 RBC 4.13 L Hgb 12.8 Hct 38.0 MCV 92.0 MCH 31.0 MCHC 33.7 RDW 12.2 Plt Count 327 MPV 9.1 Immature Gran % (Auto) 0.2 Neut % (Auto) 63.4 Lymph % (Auto) 26.0 [place] % (Auto) 7.9 Eos % (Auto) 1.9 Baso % (Auto) 0.6 Lymph # (Auto) 2.33 [place] # (Auto) 0.7 H Eos # (Auto) 0.2 Baso # (Auto) 0.1 Abs Immat Gran (auto) 0.02 Absolute Neuts (auto) 5.7 Absolute Nucleated RBC 0.000 Nucleated RBC % 0.0 Sodium 138 Potassium 3.5 Chloride 105 Carbon Dioxide 24 Anion Gap 9 BUN 9 Creatinine 0.56 L Estim Creat Clear Calc 137 Estimated GFR > 60 Glucose 113 H Calcium 8.7
[2024-10-18] VITALS (13 sets, daily range): BP systolic 99–105; BP diastolic 59–72; PULSE 71–111; RESP 16–22; TEMP 36.4–37.1; O2SAT 98–100
--- NOTE | 2024-10-18 08:12 | PM.PNCARD ---
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 the patient is clinically stable on dual anti-platelet therapy, beta-zhao and ARB. She has normal LV systolic function following the event by echo. Hopefully she will continue to stabilize I would anticipate discharge in the next 24-48 hours if no problems are encountered. Explained to the patient that is spontaneous coronary dissection slowly heal she may have mild episodes of ischemic chest pain which if these occur and are self-limited are not reasons to continually return to the emergency room. She should however return to emergency room if severe pain occurs which is reminiscent of her presenting symptom Kojo Sapp MD [facility] Subjective Date/time seen: Date of service: 10/18/24 08:12 Interval history: Reason for visit: NSTEMI HPI: We are consulted for NSTEMI. Pat is a 39 year old female with hypertension who presented with chest pain. She was showering yesterday when she developed acute substernal chest pressure, felt short of breath with it. Got out of the shower, resolved after a few minutes. Later on in the day, she was playing with her kid at a playground and redeveloped substernal chest pressure. Lasted for about 45 minutes. No prior history of chest pain in the past. No prior cardiac history. No recent illnesses. Reports her father has heart disease, but does not know the specific details regarding it. No tobacco, marijuana use. She is currently chest pain free. Initial troponin was negative, however, increased to 0.438. CXR without acute findings. Initial EKG shows sinus rhythm, T-wave inversions in the inferolateral leads concerning for ischemia. Second EKG shows improvement in the inferolateral T-waves, however, T wave abnormality in the high lateral leads, which were not present on the first EKG. Third EKG unchanged compared to second one. Fourth EKG remains stable. Date of service 10/16: Chest pain improving. 10/02 currently. Date of service 10/17: Chest pain free now. Tachycardic this morning (had received Metoprolol late), feels okay. Date of service 10/18/2024: Patient is still in ICU but IMU status. She is asymptomatic has not had any chest pain for about 48 hours. Questions answered regarding her unusual diagnosis. Exam Const: General: comfortable, no acute distress and uncomfortable HENMT: Mouth: Yes moist mucous membranes Eyes: General: appearance normal, both eyes and all related structures Sclera: sclerae normal EOM: EOMs intact bilaterally Neck: Neck: no JVD Resp: Effort & Inspection: normal respiratory effort Auscultation: clear to auscultation bilaterally Cardio: Rate: regular rate and tachycardic Rhythm: regular rhythm Heart sounds: no murmurs Skin: General skin exam: normal color Neuro: Speech: normal speech Extrem: General: no pedal edema Psych: Mental Status: mental status grossly normal Affect: normal affect Objective Data Vital Signs Vital Signs: Vital Signs - 24 hr 10/17/24 09:00 10/17/24 10:00 10/17/24 10:43 Temperature Pulse Rate 100 94 131 H Respiratory Rate 20 Blood Pressure 108/66 Pulse Oximetry 98 Oxygen Delivery 10/17/24 11:00 10/17/24 12:00 10/17/24 13:00 Temperature Pulse Rate 125 H 110 H 107 H Respiratory Rate 15 20 Blood Pressure 108/80 Pulse Oximetry 97 97 Oxygen Delivery 10/17/24 14:00 10/17/24 16:00 10/17/24 16:00 Temperature 36.6 C Pulse Rate 115 H 105 H 112 H Respiratory Rate 14 Blood Pressure 98/72 L Pulse Oximetry 98 Oxygen Delivery 10/17/24 18:00 10/17/24 20:00 10/17/24 20:00 Temperature 36.5 C Pulse Rate 111 H 106 H 101 H Respiratory Rate 20 Blood Pressure 114/72 Pulse Oximetry 99 Oxygen Delivery 10/17/24 20:45 10/17/24 22:00 10/17/24 23:56 Temperature Pulse Rate 106 H 99 104 H Respiratory Rate 20 18 Blood Pressure Pulse Oximetry 99 99 Oxygen Delivery Room Air Room Air 10/18/24 00:00 10/18/24 00:00 10/18/24 02:00 Temperature 36.8 C Pulse Rate 102 H 107 H 111 H Respiratory Rate 20 Blood Pressure 99/62 L Pulse Oximetry 99 Oxygen Delivery 10/18/24 04:00 10/18/24 04:00 10/18/24 04:00 Temperature 37.1 C Pulse Rate 99 110 H 105 H Respiratory Rate 16 18 Blood Pressure 100/59 L Pulse Oximetry 100 100 Oxygen Delivery Room Air Intake/Output Intake/Output: Intake & Output 10/15/24 10/16/24 10/17/24 10/18/24 23:59 23:59 23:59 23:59 Intake Total 480 880.8 1710 250 Output Total 3100 350 500 Balance 480 -2219.2 1360 -250 Meds/Results Medications: Active Medications Generic Name Dose Route Start Last Admin Trade Name Freq PRN Reason Stop Dose Admin Acetaminophen 650 mg 10/15/24 00:56 10/17/24 05:33 Acetaminophen 325 Mg Tablet PO 650 mg Q6H PRN Administration Mild Pain (1-3) or Fever Aspirin 81 mg 10/15/24 08:00 10/17/24 08:11 Aspirin 81 Mg Chewable Tablet PO 81 mg DAILY@0800 GEORGE Administration Clopidogrel Bisulfate 75 mg 10/16/24 09:00 10/17/24 08:10 Clopidogrel Bisulfate 75 Mg Tablet PO 75 mg QAM GEORGE Administration Enoxaparin Sodium 40 mg 10/16/24 09:00 10/17/24 08:11 Enoxaparin 40 Mg/0.4 Ml Syringe SUB-Q 40 mg DAILY GEORGE Administration Losartan Potassium 50 mg 10/16/24 09:00 10/17/24 10:44 Losartan Potassium 50 Mg Tablet PO 50 mg DAILY GEORGE Administration Metoprolol Succinate 50 mg 10/16/24 12:45 10/17/24 10:43 Metoprolol Succinate Ext Rel 50 Mg Tabcr PO 50 mg QAM [facility] Administration Morphine Sulfate 2 mg 10/15/24 00:56 10/16/24 04:43 Morphine Sulfate (*Crx) 2 Mg/Ml Inj IV PUSH 2 mg Q4H PRN Administration Pain Rated 7-10 Nitroglycerin 0.4 mg 10/15/24 12:34 10/16/24 04:41 Nitroglycerin Sl 0.4 Mg Tablet SUBLINGUAL 0.4 mg Q5MIN PRN Administration Chest Pain Ondansetron HCl 4 mg 10/16/24 04:49 10/16/24 04:59 Ondansetron Inj 4 Mg/2 Ml Vial IV PUSH 4 mg Q4H PRN Administration Nausea And Vomiting Pantoprazole Sodium 40 mg 10/15/24 09:00 10/17/24 08:11 Pantoprazole Sodium Iv 40 Mg Vial IV PUSH 40 mg QAM GEORGE Administration Radiology Results: ITS Impressions Chest X-Ray 10/14/24 20:45 IMPRESSION: No active cardiopulmonary disease
[2024-10-18] MEDS: POTASSIUM CHLORIDE 20 MEQ ER TABLET 40 MEQ PO (08:52)
[2024-10-18] MEDS: METOPROLOL SUCCINATE EXT REL 50 MG TABCR PO (08:53)
[2024-10-18] MEDS: CLOPIDOGREL BISULFATE 75 MG TABLET PO (08:53)
[2024-10-18] MEDS: ASPIRIN 81 MG CHEWABLE TABLET PO (08:53)
[2024-10-18] MEDS: ENOXAPARIN 40 MG/0.4 ML SYRINGE SUB-Q (08:53)
[2024-10-18] MEDS: LOSARTAN POTASSIUM 50 MG TABLET PO (08:53)
[2024-10-18] MEDS: PANTOPRAZOLE SODIUM IV 40 MG VIAL IV PUSH (08:54)
--- NOTE | 2024-10-18 09:21 | P.PNIM_ITS ---
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 Cardiac catheterization showed spontaneous dissection in the mid to the distal segment. Thickness suggest negative and patient currently on her and menstrual cycle has been showed to be associated with SCAD. Patient also is on GLP1 agonist for weight loss Patient now chest pain-free. Continue Medical management Continue aspirin Plavix losartan beta-zhao Echo reviewed and was normal Cardiology following and recommend further monitoring for another 24 hours before considering discharge. (2) Hypertension: Code(s): I10 - Essential (primary) hypertension Status: Acute Assessment and Plan: Appears poorly controlled at the time of admission. Continue losartan and metoprolol and blood pressures improved Improved (3) Non-ST elevation myocardial infarction (NSTEMI): Code(s): I21.4 - Non-ST elevation (NSTEMI) myocardial infarction Status: Acute Assessment and Plan: See above (4) Electrolyte abnormality: Code(s): E87.8 - Other disorders of electrolyte and fluid balance, not elsewhere class ified Status: Acute Assessment and Plan: Replace low potassium Plan DVT prophylaxis - Lovenox Nutrition -diet ordered Code Status - Full Code PT consultation Transfer to [facility] Subjective Date/time seen: 10/18/24 Patient states that she is not having any chest pain. She denies any new complaints. She states she walked with the staff in the hallway and at 2nd lab she felt winded and had to rest. She denies any nausea vomiting abdominal pain fever cough. All other systems were reviewed and were negative. Sinus rhythm on the monitor. Blood pressures improved with medications.. She is on room air. Tolerating p.o. diet Review of Systems Review of Systems: All systems reviewed & are unremarkable except as noted in HPI and below (HPI) Exam Narrative: General: Pt is alert awake and in NAD Lungs/Chest: Trachea central Clear BS B/L, No crackles or wheezing. Cardiac: RRR. Normal S1 S2. No murmurs Circulation: Pedal pulses are intact and symmetrical. Abdomen: Normal bowel sounds.. Soft. NT. ND. Extremities: No clubbing, cyanosis or edema. Warm right groin cath site shows no swelling hematoma. : Lou in place Neurologic: Follows commands. Moves all 4 extremities PERRL AO x3 Skin: No Rash Objective Data Vital Signs Vital Signs: Vital Signs - 24 hr 10/17/24 10:00 10/17/24 10:43 10/17/24 11:00 Temperature Pulse Rate 94 131 H 125 H Respiratory Rate 15 Blood Pressure 108/80 Pulse Oximetry 97 Oxygen Delivery 10/17/24 12:00 10/17/24 13:00 10/17/24 14:00 Temperature Pulse Rate 110 H 107 H 115 H Respiratory Rate 20 Blood Pressure Pulse Oximetry 97 Oxygen Delivery 10/17/24 16:00 10/17/24 16:00 10/17/24 18:00 Temperature 36.6 C Pulse Rate 105 H 112 H 111 H Respiratory Rate 14 Blood Pressure 98/72 L Pulse Oximetry 98 Oxygen Delivery 10/17/24 20:00 10/17/24 20:00 10/17/24 20:45 Temperature 36.5 C Pulse Rate 106 H 101 H 106 H Respiratory Rate 20 20 Blood Pressure 114/72 Pulse Oximetry 99 99 Oxygen Delivery Room Air 10/17/24 22:00 10/17/24 23:56 10/18/24 00:00 Temperature 36.8 C Pulse Rate 99 104 H 102 H Respiratory Rate 18 20 Blood Pressure 99/62 L Pulse Oximetry 99 99 Oxygen Delivery Room Air 10/18/24 00:00 10/18/24 02:00 10/18/24 04:00 Temperature Pulse Rate 107 H 111 H 99 Respiratory Rate 16 Blood Pressure Pulse Oximetry 100 Oxygen Delivery Room Air 10/18/24 04:00 10/18/24 04:00 10/18/24 08:53 Temperature 37.1 C Pulse Rate 110 H 105 H 94 Respiratory Rate 18 Blood Pressure 100/59 L Pulse Oximetry 100 Oxygen Delivery Intake/Output Intake/Output: Intake & Output 10/15/24 10/16/24 10/17/24 10/18/24 23:59 23:59 23:59 23:59 Intake Total 480 880.8 1710 250 Output Total 3100 350 500 Balance 480 -2219.2 1360 -250 Meds/Results Medications: Active Medications Generic Name Dose Route Start Last Admin Trade Name Freq PRN Reason Stop Dose Admin Acetaminophen 650 mg 10/15/24 00:56 10/17/24 05:33 Acetaminophen 325 Mg Tablet PO 650 mg Q6H PRN Administration Mild Pain (1-3) or Fever Aspirin 81 mg 10/15/24 08:00 10/18/24 08:53 Aspirin 81 Mg Chewable Tablet PO 81 mg DAILY@0800 [facility] Administration Clopidogrel Bisulfate 75 mg 10/16/24 09:00 10/18/24 08:53 Clopidogrel Bisulfate 75 Mg Tablet PO 75 mg QAM [facility] Administration Enoxaparin Sodium 40 mg 10/16/24 09:00 10/18/24 08:53 Enoxaparin 40 Mg/0.4 Ml Syringe SUB-Q 40 mg DAILY [facility] Administration Losartan Potassium 50 mg 10/16/24 09:00 10/18/24 08:53 Losartan Potassium 50 Mg Tablet PO 50 mg DAILY [facility] Administration Metoprolol Succinate 50 mg 10/16/24 12:45 10/18/24 08:53 Metoprolol Succinate Ext Rel 50 Mg Tabcr PO 50 mg QAM [facility] Administration Morphine Sulfate 2 mg 10/15/24 00:56 10/16/24 04:43 Morphine Sulfate (*Crx) 2 Mg/Ml Inj IV PUSH 2 mg Q4H PRN Administration Pain Rated 7-10 Nitroglycerin 0.4 mg 10/15/24 12:34 10/16/24 04:41 Nitroglycerin Sl 0.4 Mg Tablet SUBLINGUAL 0.4 mg Q5MIN PRN Administration Chest Pain Ondansetron HCl 4 mg 10/16/24 04:49 10/16/24 04:59 Ondansetron Inj 4 Mg/2 Ml Vial IV PUSH 4 mg Q4H PRN Administration Nausea And Vomiting Pantoprazole Sodium 40 mg 10/15/24 09:00 10/18/24 08:54 Pantoprazole Sodium Iv 40 Mg Vial IV PUSH 40 mg QAM [facility] Administration Radiology Results: ITS Impressions Chest X-Ray 10/14/24 20:45 IMPRESSION: No active cardiopulmonary disease Quality VTE Prophylaxis VTE prophylaxis: pharmacologic ordered
[2024-10-19] VITALS: PULSE 86
[2024-10-19 04:00] VITALS: PULSE 87
[2024-10-19 05:56] VITALS: BP 111/55; PULSE 90; RESP 16; TEMP 36.6; O2SAT 98
[2024-10-19 08:00] VITALS: PULSE 85
--- NOTE | 2024-10-19 08:18 | PCPTNOTE ---
Per chart review and discussion with nurse, pt is IND in room and in halls. Skilled therapy evaluation is not indicated at this time. Will discharge order.
[2024-10-19] MEDS: CLOPIDOGREL BISULFATE 75 MG TABLET PO (08:57)
[2024-10-19] MEDS: ASPIRIN 81 MG CHEWABLE TABLET PO (08:57)
[2024-10-19 08:58] VITALS: PULSE 80
[2024-10-19] MEDS: ENOXAPARIN 40 MG/0.4 ML SYRINGE SUB-Q (08:58)
[2024-10-19] MEDS: LOSARTAN POTASSIUM 50 MG TABLET PO (08:58)
[2024-10-19] MEDS: METOPROLOL SUCCINATE EXT REL 50 MG TABCR PO (08:58)
--- NOTE | 2024-10-19 09:50 | P.PNCA_ITS ---
Progress Note: A&P Assessment and Plan (1) Hypertension: Code(s): I10 - Essential (primary) hypertension Status: Acute (2) Non-ST elevation myocardial infarction (NSTEMI): Code(s): I21.4 - Non-ST elevation (NSTEMI) myocardial infarction Status: Acute (3) Spontaneous dissection of coronary artery: Code(s): I25.42 - Coronary artery dissection Status: Acute Plan 39-year-old woman with hypertension presented with chest pain admitted for non ST elevation SC to status on coronary angiography Non ST-elevation SC -secondary to spontaneous coronary artery dissection -continue aspirin 81 mg p.o. daily and Plavix 75 p.o. daily -has been chest pain-free for the last 2 days and ambulating without cardiopulmonary limitations -no evidence of electrical instability or heart failure symptoms -can be discharged today to follow up outpatient Spontaneous coronary artery dissection -continue dual anti-platelet therapy -continue metoprolol succinate 50 mg p.o. daily and losartan 50 mg p.o. daily -goal systolic blood pressure less than 120 mm Hg -we discussed avoidance of physical and social stressors for the next 3 months -we discussed avoidance of strenuous physical activities for the next 3 months -she can return to work in mid October given that there is significant stress at work Hypertension -continue Toprol and losartan Can be discharged today from cardiac perspective. Can return to work in mid October Subjective Date/time seen: 10/19/24 09:50 Interval history: Has not had any chest pain for the last 2 days. No orthopnea or shortness of breath. Denies any lightheadedness or presyncopal events. Review of Systems Cardiovascular: Cardiovascular: Reports as per HPI Respiratory: Respiratory: Reports as per HPI Exam Const: General: comfortable HENMT: Mouth: Yes moist mucous membranes Eyes: EOM: EOMs intact bilaterally Neck: Neck: no JVD Resp: Effort & Inspection: normal respiratory effort Auscultation: clear to auscultation bilaterally Cardio: Rate: regular rate Rhythm: regular rhythm Heart sounds: no murmurs GI: GI Palp: Yes Soft to palpation Neuro: Speech: normal speech Extrem: General: no pedal edema Objective Data Vital Signs Vital Signs: Vital Signs - 24 hr 10/18/24 12:16 10/18/24 12:18 10/18/24 16:00 Temperature Pulse Rate 71 102 H 91 Respiratory Rate 22 H Blood Pressure 105/72 Pulse Oximetry 98 Oxygen Delivery 10/18/24 16:00 10/18/24 18:35 10/18/24 20:00 Temperature 37.0 C Pulse Rate 91 89 89 Respiratory Rate 22 H 22 H Blood Pressure 104/66 Pulse Oximetry 98 98 Oxygen Delivery Room Air 10/18/24 21:44 10/18/24 22:00 10/19/24 00:00 Temperature 36.4 C Pulse Rate 88 92 86 Respiratory Rate 16 Blood Pressure 104/68 Pulse Oximetry 99 Oxygen Delivery 10/19/24 04:00 10/19/24 05:56 10/19/24 08:58 Temperature 36.6 C Pulse Rate 87 90 80 Respiratory Rate 16 Blood Pressure 111/55 L Pulse Oximetry 98 Oxygen Delivery Intake/Output Intake/Output: Intake & Output 10/16/24 10/17/24 10/18/24 10/19/24 23:59 23:59 23:59 23:59 Intake Total 880.8 1710 850 490 Output Total 3100 350 500 Balance -2219.2 1360 350 490 Meds/Results Medications: Active Medications Generic Name Dose Route Start Last Admin Trade Name Freq PRN Reason Stop Dose Admin Acetaminophen 650 mg 10/15/24 00:56 10/17/24 05:33 Acetaminophen 325 Mg Tablet PO 650 mg Q6H PRN Administration Mild Pain (1-3) or Fever Aspirin 81 mg 10/15/24 08:00 10/19/24 08:57 Aspirin 81 Mg Chewable Tablet PO 81 mg DAILY@0800 [facility] Administration Clopidogrel Bisulfate 75 mg 10/16/24 09:00 10/19/24 08:57 Clopidogrel Bisulfate 75 Mg Tablet PO 75 mg QAM GEORGE Administration Enoxaparin Sodium 40 mg 10/16/24 09:00 10/19/24 08:58 Enoxaparin 40 Mg/0.4 Ml Syringe SUB-Q 40 mg DAILY GEORGE Administration Losartan Potassium 50 mg 10/16/24 09:00 10/19/24 08:58 Losartan Potassium 50 Mg Tablet PO 50 mg DAILY GEORGE Administration Metoprolol Succinate 50 mg 10/16/24 12:45 10/19/24 08:58 Metoprolol Succinate Ext Rel 50 Mg Tabcr PO 50 mg QAM GEORGE Administration Morphine Sulfate 2 mg 10/15/24 00:56 10/16/24 04:43 Morphine Sulfate (*Crx) 2 Mg/Ml Inj IV PUSH 2 mg Q4H PRN Administration Pain Rated 7-10 Nitroglycerin 0.4 mg 10/15/24 12:34 10/16/24 04:41 Nitroglycerin Sl 0.4 Mg Tablet SUBLINGUAL 0.4 mg Q5MIN PRN Administration Chest Pain Ondansetron HCl 4 mg 10/16/24 04:49 10/16/24 04:59 Ondansetron Inj 4 Mg/2 Ml Vial IV PUSH 4 mg Q4H PRN Administration Nausea And Vomiting Radiology Results: ITS Impressions Chest X-Ray 10/14/24 20:45 IMPRESSION: No active cardiopulmonary disease
[2024-10-19 12:00] VITALS: PULSE 103
--- NOTE | 2024-10-19 13:41 | P.DS_ITS ---
DS: Admitting Diagnosis Discharge Date 10/19/24 Admitting Diagnosis Chest pain DS: Discharge Diagnosis Discharge Diagnosis (1) Spontaneous dissection of coronary artery: Code(s): I25.42 - Coronary artery dissection Status: Acute (2) Non-ST elevation myocardial infarction (NSTEMI): Code(s): I21.4 - Non-ST elevation (NSTEMI) myocardial infarction Status: Acute (3) Hypertension: Code(s): I10 - Essential (primary) hypertension Status: Acute (4) Electrolyte abnormality: Code(s): E87.8 - Other disorders of electrolyte and fluid balance, not elsewhere classified Status: Acute (5) Abnormal transaminases: Code(s): R74.8 - Abnormal levels of other serum enzymes Status: Acute DS: Summary Hospital Course Reason for hospitalization: 39yo female with HTN who presents with chest pain. Please see H&P for details. Hospital Course: In the ED: Blood pressure on arrival was 183/109 with the remainder of her vital signs being stable. Chest x-ray was without acute findings. WBC count of 10.6, ALT 65, total protein 9.0, albumin 5.2. Initial troponin was negative and EKG showed sinus rhythm with possible LVH, poor R-wave progression and T-wave inversions in inferior leads. Repeat EKG showing resolution of inferior lead findings but developed new high lateral lead T wave changes. Troponin peaked at 0.44. Serum test was negative. She was given a GI cocktail without benefit. She was given aspirin 324 mg and enoxaparin 1 milligram/kilogram. She was admitted and Cardiology consulted. AST climbed to 61 but ALT better at 57 (she has a hx of elevated LFTs in the past as well). TG 157, TC 129, HDL 42 and LDL 57. Echo showing EF 60-65% and no other significant findings. She underwent a LHC showing: Findings: 1. Left coronary artery is a large artery that divides into large LAD, large circumflex artery. Left main is free of disease 2. Left anterior descending artery is a large artery that runs and wraps around the apex. Free of disease proximally gives rise to large diagonal that is free of disease. 3. Left circumflex artery is a large artery and codominant. Free of disease. Small to medium OM1 has spontaneous dissection in the mid to the distal segment. 4. Right coronary artery is very large and free of disease 5. LVEDP was 18 mm Hg and no gradient across aortic valve. 6. LV angiogram shows no wall motion abnormalities and normal ejection fraction 65%. 7. Right femoral artery angiogram shows no significant disease in the right common femoral artery. Metoprolol, Plavix and ASA were added to her medical regiment. She had clinical improvement. She overall did well and was able to be discharged on 10/19/24. Status at Discharge Cognitive/behavioral status at discharge: stable Time Spent with Patient Time attestation: Total time spent providing and/or coordinating discharge services: 34 minutes Time spent: Greater than 30 minutes Exam Narrative: AF 97.8 111/55 103 16 98% ra Gen - NARD Chest - CTA bilaterally, nml RR CV - RRR S1/S2. Tele showing no alarms Abd - Soft, NT/ND, Positive BS Ext - No pedal edema Psych - Nml mood and affect Skin - Warm and dry Discharge Plan Discharge Attending physician on discharge: Rashid Bo Consulting providers: Kristin Clark; Denzel Amezcua Discharging Clinician: Rashid Bo Anticipated Discharge Date/Time: 10/19/24 13:57 Patient Disposition: Home, Self-Care Activity: other - see discharge instructions Diet: heart healthy Discharge Instructions: [facility] [address] [place] [address] DISCHARGE INSTRUCTIONS - POST CARDIAC CATH Activity Restriction 1. No Driving for 24 hours 2. No lifting, pushing or pulling more than 10 LBS for 1 week 3. No strenuous activity or exercising for 1 week 4. Shower after 24 hours, do not soak in any water such as hot tubs or bath tubs Wound Care 1. Remove dressing 24 hours after your procedure prior to showering 2. Lather soap and water to puncture site and rinse then pat dry 3. You may apply a new band aid to the site and remove after 24 hours then leave open to air 4. Monitor daily for redness, drainage, mild swelling and fever Report IMMEDIATELY: CALL 911 1. If you experience any swelling or bleeding from puncture site. Hold firm pressure over the puncture site until help arrives 2. If you experience any new discomfort in you back, neck, jaw, stomach or arm. Any shortness of breath, nausea, vo miting, or cold sweats 3. If you experience any swelling, tenderness, or numbness in your leg or if yo ur leg becomes cold or has color changes. Follow Up 1. Follow your doctors discharge instructions on resuming your medications. Some medications will need to be held after your procedure 2. Follow up with the office to schedule your next appointment with your doctor 3. Drink plenty of water following your procedure, avoid alcohol If you received a stent or a closure device keep your card with you such as in your wallet. Present your card to your doctor appointments to update your health care information. *For any other questions please call the office at [phone]. Office hours are 8AM 4:30PM Wednesday through Wednesday. Contact your doctor or call 911 and come to the Emergency Room if you have recurrent and persistent chest pain or other worrisome symptoms. Avoid NSAIDs (ibuprofen, naproxen, Aleve). Tylenol is safe to take. Follow-up with your primary care provider in 1-2 weeks. Please call for appointment. Follow-up with cardiology in 1-2 weeks. Please call for appointment. Thank you for using [facility] for your health care needs. Patient Instructions: Antibiotic Form, Angina (DC) Patient Language: Malian Stand Alone Forms: General Discharge Information Follow-up/Referrals: Denzel Amezcua MD [Physician] - Call for Appointment Andriy Cancino MD [Primary Care Provider] - Call for Appointment Discharge Medications: New aspirin [Children's Aspirin] 81 mg Tablet,Chewable 81 mg PO DAILY@0800 Qty: 30 2RF metoprolol succinate 50 mg Tablet Extended Release 24 Hr 50 mg PO QAM Qty: 30 2RF clopidogrel 75 mg Tablet 75 mg PO QAM Qty: 30 2RF Continued losartan 50 mg tablet 50 mg PO BID Women's Multivitamin 18 mg-400 mcg- 500 mg-50 mcg tablet 1 tablet PO DAILY Probiotic Digestive Care 20 billion cell capsule See Rx Instructions PO .COMPLEX Rx Instructions: 1 Capsule Daily orally; Discontinued ibuprofen [Advil] 200 mg tablet 400 mg PO Q6H Other Ambulatory Orders: Comprehensive Metabolic Panel (Routine) Timeframe: 1 Week Location: Determined by Patient Ordered By: Rashid Bo Date of admission: 10/15/24 07:44 Primary Care Provider: Andriy Cancino Admitting Provider: Jeffrey Weiss Attending physician on admission: Jeffrey Weiss Condition: Stable Hospitalist MIPS Heart Failure (Exclusion) Patient has history of Heart Transplant or Left Ventricular Assistive Device?: No IF YES, STOP HERE Heart Failure (Qualifier) Patient has current or prior documentation of LVEF less than or equal to 40%, or mod/servere depressed LVSF?: No IF NO, STOP HERE
== END 2024-10-19 14:45 | disposition home or self-care (01) | DRG 191 ==
LOC: ANHED 10-15 01:01 → ANHIMU 10-15 01:43 → ANHICU 10-18 11:15 → ANH2MED 10-19 13:59 → ANHICU 10-20 11:19 → ANHIMU 10-20 11:19
PROVIDERS: Internal Medicine; Internal Medicine Cardiovascular Disease; Physician Assistant; Admitting Provider Internal Medicine; Emergency Provider Emergency Medicine; PCP Emergency Medicine; Visit Provider Internal Medicine
PROC: 4A023N7 Measurement of Cardiac Sampling and Pressure, Left Heart, Percutaneous Approach (ICD-10-PCS; CPT 93452; principal; 2024-10-15 22:05)
PROC: 4A023N7 Measurement of Cardiac Sampling and Pressure, Left Heart, Percutaneous Approach (ICD-10-PCS; 2024-10-15 22:05)
DX: I25.42 Coronary artery dissection (principal); I21.4 Non-ST elevation (NSTEMI) myocardial infarction; I10 Essential (primary) hypertension; K21.9 Gastro-esophageal reflux disease without esophagitis; Z90.49 Acquired absence of other specified parts of digestive tract
CPT/HCPCS: 36415; 71045; 80048; 80053; 80061; 83540; 83550; 83690; 84484; 84702; 85025; 85027; 85610; 85730; 87641; 93005; 93458; 96372; 96374; 96375; 99285; A9270; C1760; C1769; C1887; C1894; C8929; G0269; G0378; G0379; J1644; J1650; J2003; J2250; J2270; J2305; J2405; J2470; J3010; J7030; J7040; Q9957